=== PATIENT | female | born 1965 | race African-American/Black ===

== ENCOUNTER 2018-03-15 12:06 | Inpatient (IN) | payer MEDICARE, MEDICAID ==
[~2018-03-15] VITALS: Ht 177.8 cm; Wt 73.9 kg
[2018-03-15 12:15] VITALS: BP 104/112
[2018-03-15] MEDS: cefTRIAXone 2 GM in NS 110 ML IV SCH (12:49)
[2018-03-15 12:54] VITALS: BP 163/104
[2018-03-15 13:09] LABS: HEMOGLOBIN 13.3 G/DL (12.0-16.0); MEAN CORPUSCULAR VOLUME 94 FL (80-99); PLATELET COUNT 285 K/UL (150-450); RED BLOOD COUNT 4.33 M/UL (4.20-5.40); RED CELL DISTRIBUTION WIDTH 11.8 % (11.6-14.8)
[2018-03-15 13:12] LABS: WHITE BLOOD COUNT 23.8 K/UL (4.8-10.8)
[2018-03-15 13:20] LABS: ANION GAP 9 mmol/L (5-15); BLOOD UREA NITROGEN 28 mg/dL (7-18); CALCIUM 10.6 MG/DL (8.5-10.1); CARBON DIOXIDE 32 MMOL/L (21-32); CHLORIDE 104 MMOL/L (98-107); CREATININE 0.2 MG/DL (0.55-1.30); POTASSIUM 3.4 MMOL/L (3.5-5.1); SODIUM 145 MMOL/L (136-145)
[2018-03-15 13:49] LABS: ALANINE AMINOTRANSFERASE 49 U/L (12-78); ALBUMIN 4.2 G/DL (3.4-5.0); ALBUMIN/GLOBULIN RATIO 0.8 (1.0-2.7); ALKALINE PHOSPHATASE 100 U/L (46-116); ASPARTATE AMINO TRANSFERASE 39 U/L (15-37); BILIRUBIN,TOTAL 0.3 MG/DL (0.2-1.0); CREATINE KINASE 175 U/L (26-308)
[2018-03-15 13:59] VITALS: BP 154/93
[2018-03-15] MEDS ORDERED: GLUCERNA1500 ML PO (14:06)
[2018-03-15] MEDS ORDERED: TRAMADOL HCL50 MG ORAL (14:06)
[2018-03-15] MEDS ORDERED: IRON256 MG GT (14:06)
[2018-03-15] MEDS ORDERED: ACETAMINOPHEN325 M1 ORAL (14:06)
[2018-03-15] MEDS ORDERED: CRANBERRY400 MG GT (14:06)
[2018-03-15] MEDS ORDERED: VITAMIN C500 M1 GT (14:06)
[2018-03-15] MEDS ORDERED: MULTIVITAMINS1 EAC8 GT (14:06)
[2018-03-15 14:16] LABS: BILIRUBIN, URINE NEGATIVE (NEGATIVE); COLOR,URINE YELLOW; GLUCOSE, URINE (UA) NEGATIVE (NEGATIVE); KETONES,URINE NEGATIVE (NEGATIVE); LEUKOCYTE ESTERASE ,URINE NEGATIVE (NEGATIVE); NITRITE,URINE NEGATIVE (NEGATIVE); PH,URINE 6 (4.5-8.0); PROTEIN,URINE 3+ (NEGATIVE); UROBILINOGEN,URINE NORMAL MG/DL (0.0-1.0)
--- NOTE | 2018-03-15 14:16 | Diagnostic Imaging Report ---
Indication: Shortness of breath Technique: One view of the chest Comparison: none Findings: There is marked elevation of the right hemidiaphragm. Suspect atelectasis of the right middle and lower lobes. Mediastinum is shifted to the right. Air-fluid level below the right hemidiaphragm probably represents fluid within colon. The lungs and pleural spaces are otherwise clear. Heart size is normal. There is a tracheostomy. There is a left chest pacemaker. This there is a gastrostomy Impression: Evidence of right lung volume loss; suspect right middle and lower lobe atelectasis Other findings as noted Findings discussed by phone with Dr. Bernal in the emergency room at the time of interpretation
[2018-03-15 14:23] LABS: APPEARANCE,URINE SLIGHTLY CLOUDY
--- NOTE | 2018-03-15 14:48 | Emergency Room Report ---
History of Present Illness General Chief Complaint: Dyspnea/Respdistress Source: Medical Record, EMS, Caregiver Present Illness HPI This patient is brought in by EMS from a longterm facility. This patient has a history of advanced ALS. She recently developed a third degree heart block and had 2 episodes of cardiac arrest that required CPR and defibrillation. The patient underwent permanent pacemaker placement at [facility]. The patient is ventilator dependent secondary to respiratory failure. She presents from the longterm facility for concerns of episodes of desaturation. Per report, the patient's O2 saturation was dropping intermittently to 70. There was also concerns from the caregiver that the longterm facility was not giving the patient her medications because the orders are not signed by the primary physician of the facility. There are no other complaints. Allergies: Coded Allergies: MORPHINE (Verified Allergy, Unknown, 03/15/18) Patient History Past Medical History: other - ALS w/ Resp failure. Vent dependent. Past Surgical History: other - Trach Social History: Denies: smoking, alcohol use, drug use Last Menstrual Period: NA Reviewed Nursing Documentation: PMH: Agreed; PSxH: Agreed Nursing Documentation-PMH Past Medical History: No History, Except For Hx Cardiac Problems: Yes - Third degree heart block. ALS. Hx Hypertension: Yes Hx Pacemaker: Yes Hx COPD: Yes - Vent dependent. Pneumonia. Review of Systems All Other Systems: negative except mentioned in HPI Physical Exam Vital Signs Date Time Temp Pulse Resp B/P (MAP) Pulse Ox O2 Delivery O2 Flow Rate FiO2 03/15/18 11:59 110 20 190/112 100 Mechanical Ventilator 03/15/18 12:15 100 03/15/18 12:15 98.2 98.2 Sp02 EP Interpretation: reviewed, normal General Appearance: no apparent distress, alert, GCS 15, non-toxic Head: normocephalic, atraumatic Eyes: bilateral eye normal inspection, bilateral eye PERRL ENT: hearing grossly normal, normal pharynx, no angioedema, normal voice Neck: full range of motion, supple/symm/no masses Respiratory: chest non-tender, lungs clear, normal breath sounds, no respiratory distress, no retraction, no accessory muscle use Cardiovascular #1: regular rate, rhythm, no edema Gastrointestinal: normal bowel sounds, non tender, soft, non-distended, no guarding, no rebound Rectal: deferred Musculoskeletal: back normal, gait/station normal, normal range of motion, non- tender, calf tenderness Neurologic: alert, responsive, other - At baseline. Can communicate with a visual machine. Psychiatric: mood/affect normal Skin: warm/dry, well hydrated, other - See RN skin exam Medical Decision Making Diagnostic Impression: Primary Impression: Sepsis Additional Impression: Leukocytosis ER Course This patient did not appear to have any issues with hypoxemia on arrival to our facility. The patient was 100% on her ventilator and without any evidence of distress. However, she was noted to have an elevated white blood cell count over 23,000. Chest x-ray did not show any evidence of pneumonia but did have a significant amount of atelectasis on the right side. I'm unsure of the etiology of the patient's leukocytosis. She was given broad-spectrum antibiotics and admitted for further evaluation and treatment. Laboratory Tests Test 03/15/18 12:00 03/15/18 12:05 03/15/18 13:33 Urine Color Yellow Urine Appearance Slightly cloudy Urine pH 6 (4.5-8.0) Urine Specific [place] 1.015 (1.005-1.035) Urine Protein 3+ (NEGATIVE) H Urine Glucose (UA) Negative (NEGATIVE) Urine Ketones Negative (NEGATIVE) Urine Occult Blood 1+ (NEGATIVE) H Urine Nitrite Negative (NEGATIVE) Urine Bilirubin Negative (NEGATIVE) Urine Urobilinogen Normal MG/DL (0.0-1.0) Urine Leukocyte Esterase Negative (NEGATIVE) Urine RBC 2-4 /HPF (0 - 2) H Urine WBC 0-2 /HPF (0 - 2) Urine Squamous Epithelial Cells Occasional /LPF Urine Bacteria Few /HPF (NONE) Urine Hyaline Casts 0-2 /LPF (NONE) H White Blood Count 23.8 K/UL (4.8-10.8) *H Red Blood Count 4.33 M/UL (4.20-5.40) Hemoglobin 13.3 G/DL (12.0-16.0) Hematocrit 41.0 % (37.0-47.0) Mean Corpuscular Volume 94 FL (80-99) Mean Corpuscular Hemoglobin 30.7 PG (27.0-31.0) Mean Corpuscular Hemoglobin Concent 32.4 G/DL (32.0-36.0) Red Cell Distribution Width 11.8 % (11.6-14.8) Platelet Count 285 K/UL (150-450) Mean Platelet Volume 11.4 FL (6.5-10.1) H Neutrophils (%) (Auto) % (45.0-75.0) Lymphocytes (%) (Auto) % (20.0-45.0) Monocytes (%) (Auto) % (1.0-10.0) Eosinophils (%) (Auto) % (0.0-3.0) Basophils (%) (Auto) % (0.0-2.0) Differential Total Cells Counted 100 Neutrophils % (Manual) 79 % (45-75) H Lymphocytes % (Manual) 14 % (20-45) L Monocytes % (Manual) 5 % (1-10) Eosinophils % (Manual) 0 % (0-3) Basophils % (Manual) 0 % (0-2) Band Neutrophils 2 % (0-8) Platelet Estimate Adequate Platelet Morphology Normal Hypochromasia 1+ Sodium Level 145 MMOL/L (136-145) Potassium Level 3.4 MMOL/L (3.5-5.1) L Chloride Level 104 MMOL/L (98-107) Carbon Dioxide Level 32 MMOL/L (21-32) Anion Gap 9 mmol/L (5-15) Blood Urea Nitrogen 28 mg/dL (7-18) H Creatinine 0.2 MG/DL (0.55-1.30) L Estimate Glomerular Filtration Rate > 60 mL/min (>60) Glucose Level 190 MG/DL (74-106) H Lactic Acid Level 0.70 mmol/L (0.4-2.0) Calcium Level 10.6 MG/DL (8.5-10.1) H Total Bilirubin 0.3 MG/DL (0.2-1.0) Aspartate Amino Transferase (AST) 39 U/L (15-37) H Alanine Aminotransferase (ALT) 49 U/L (12-78) Alkaline Phosphatase 100 U/L (46-116) Total Creatine Kinase 175 U/L (26-308) Creatine Kinase MB 2.0 NG/ML (0.0-3.6) Creatine Kinase MB Relative Index 1.1 Troponin I 0.000 ng/mL (0.000-0.056) Total Protein 9.3 G/DL (6.4-8.2) H Albumin 4.2 G/DL (3.4-5.0) Globulin 5.1 g/dL Albumin/Globulin Ratio 0.8 (1.0-2.7) L Arterial Blood pH 7.390 (7.350-7.450) Arterial Blood Partial Pressure CO2 46.6 mmHg (35.0-45.0) H Arterial Blood Partial Pressure O2 495.7 mmHg (75.0-100.0) H Arterial Blood HCO3 28.0 mmol/L (22.0-26.0) H Arterial Blood Oxygen Saturation 99.6 % (92.0-98.0) H Arterial Blood Base Excess 2.5 Lopez Test Positive EKG Diagnostic Results Rate: normal Rhythm: NSR ST Segments: no acute changes Rhythm Strip Diag. Results EP Interpretation: yes Rate: 80's Rhythm: NSR, no PVC's, no ectopy Chest X-Ray Diagnostic Results Chest X-Ray Diagnostic Results : Chest X-Ray Ordered: Yes # of Views/Limited/Complete: 1 View Indication: Other EP Interpretation: No Interpretation: other - R. sided atelectasis Impression: Other - See above Last Vital Signs Date Time Temp Pulse Resp B/P (MAP) Pulse Ox O2 Delivery O2 Flow Rate FiO2 03/15/18 13:59 90 14 154/93 94 Mechanical Ventilator 100 03/15/18 12:15 98.2 98.2 Disposition: ADMITTED INPATIENT Condition: Serious Referrals: VAUGHN ALEJANDRO (PCP) Lauren Conklin DO Mar 15, 2018 14:48
[2018-03-15] MEDS ORDERED: Vancomycin 1 GM in NS 275 ML IVPB ONE (15:15)
[2018-03-15 15:38] VITALS: BP 102/70
[2018-03-15 16:30] VITALS: BP 121/75
[2018-03-15] MEDS ORDERED: Miralax 17gm pkt ORAL PRN (17:45)
[2018-03-15] MEDS ORDERED: Albuterol/Ipratropium 3ml neb HHN PRN (17:45)
[2018-03-15] MEDS: LORazepam Inj 2mg/ml 1ml IV PRN (19:03)
[2018-03-15] MEDS: Ipratropium 0.02% Inh Soln 2.5ml UD HHN SCH (19:35)
[2018-03-15 20:00] VITALS: BP 144/80
[2018-03-15] MEDS: Heparin 5000 units/ml inj SUBQ SCH (20:40)
[2018-03-16] VITALS: BP 118/68
[2018-03-16] MEDS: cefTRIAXone 2 GM in NS 110 ML IV SCH (01:43)
[2018-03-16 04:00] VITALS: BP 123/65
[2018-03-16] MEDS: LORazepam Inj 2mg/ml 1ml IV PRN (04:46)
[2018-03-16 05:17] LABS: HEMATOCRIT 35.4 % (37.0-47.0); HEMOGLOBIN 12.2 G/DL (12.0-16.0); MEAN CORPUSCULAR VOLUME 93 FL (80-99); PLATELET COUNT 223 K/UL (150-450); RED BLOOD COUNT 3.79 M/UL (4.20-5.40); RED CELL DISTRIBUTION WIDTH 11.8 % (11.6-14.8)
[2018-03-16 05:23] LABS: ALBUMIN 3.4 G/DL (3.4-5.0); ANION GAP 10 mmol/L (5-15); BLOOD UREA NITROGEN 24 mg/dL (7-18); CALCIUM 9.6 MG/DL (8.5-10.1); CARBON DIOXIDE 30 MMOL/L (21-32); CHLORIDE 107 MMOL/L (98-107); CREATININE 0.2 MG/DL (0.55-1.30); PHOSPHORUS 3.9 MG/DL (2.5-4.9); POTASSIUM 2.8 MMOL/L (3.5-5.1); SODIUM 146 MMOL/L (136-145)
[2018-03-16 05:32] LABS: WHITE BLOOD COUNT 28.7 K/UL (4.8-10.8)
[2018-03-16] MEDS: Ipratropium 0.02% Inh Soln 2.5ml UD HHN SCH ×3 (06:57→19:01)
--- NOTE | 2018-03-16 07:59 | History and Physical ---
History of Present Illness General Date patient seen: Mar 16, 2018 Reason for Hospitalization: Dyspnea/Respdistress Present Illness HPI 52 year old female with a history of advanced ALS, Chronic Vent/trach/ PEG brought in by EMS from a nursing home facility with episodes of desaturation. Per report, the patient's O2 saturation was dropping intermittently to 70. Initial evaluation in ER showed high WBC and possible sepsis. She is admitted to [facility] for further evaluation. She recently developed a third degree heart block and had 2 episodes of cardiac arrest that required CPR and defibrillation. The patient underwent permanent pacemaker placement. Allergies: Coded Allergies: MORPHINE (Verified Allergy, Unknown, 03/15/18) Medication History Scheduled Ascorbic Acid* (Vitamin C*), 500 MG GT DAILY, (Reported) Multivitamin With Minerals (Multivitamins With Minerals*), 1 TAB GT DAILY, ( Reported) Scheduled PRN Acetaminophen* (Acetaminophen 325MG Tablet*), 325 MG ORAL Q4H PRN for For Pain, (Reported) Tramadol Hcl* (Ultram*), 50 MG ORAL Q6H PRN for For Pain, (Reported) Miscellaneous Medications Cranberry (Cranberry), 425 MG GT, (Reported) Ferrous Gluconate (Iron), 330 MG GT, (Reported) Nut.tx.gluc.intoler,Lac-Fr,Soy (Glucerna 1.2 Alo), 1,500 ML PO, (Reported) Patient History Healthcare decision maker PRISCILLA ZEPEDA Resuscitation status Full Code Advanced Directive on File No Past Medical/Surgical History Past Medical/Surgical History: (1) ALS (amyotrophic lateral sclerosis) (2) Chronic respiratory failure (3) Feeding by G-tube (4) Pacemaker Review of Systems All Other Systems: negative except mentioned in HPI Physical Exam General Appearance: WD/WN Lines, tubes and drains: peripheral HEENT: normocephalic, atraumatic Neck: non-tender, normal alignment Respiratory/Chest: chest wall non-tender, lungs clear Breasts: no masses Cardiovascular/Chest: normal peripheral pulses, normal rate Abdomen: normal bowel sounds, non tender Genitourinary/Rectal: normal genital exam, normal rectal exam Extremities: normal range of motion, non-tender Skin Exam: normal pigmentation 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 II-XII grossly normal Last 24 Hour Vital Signs Date Time Temp Pulse Resp B/P (MAP) Pulse Ox O2 Delivery O2 Flow Rate FiO2 8/4/18 07:05 50 03/16/18 07:05 96 12 98 Mechanical Ventilator 50.0 50 03/16/18 06:59 94 12 50 03/16/18 06:57 94 12 96 Mechanical Ventilator 50.0 50 03/16/18 04:35 98 12 50 03/16/18 04:00 117 03/16/18 04:00 98.1 99 20 123/65 (84) 98 98.1 03/16/18 04:00 Mechanical Ventilator 03/16/18 04:00 50 03/16/18 03:02 94 13 50 03/16/18 01:28 91 12 50 03/16/18 00:00 50 03/16/18 00:00 Mechanical Ventilator 03/16/18 00:00 98.2 113 20 118/68 (85) 98 98.2 03/16/18 00:00 98 03/15/18 23:08 89 12 50 03/15/18 21:21 91 12 50 03/15/18 20:00 50 03/15/18 20:00 Mechanical Ventilator 03/15/18 20:00 96 03/15/18 20:00 97.2 100 18 144/80 (101) 100 97.2 03/15/18 19:38 98 12 99 Mechanical Ventilator 50.0 50 03/15/18 19:30 50 03/15/18 19:30 94 12 100 Mechanical Ventilator 50.0 50 03/15/18 19:17 96 12 50 03/15/18 17:04 94 12 50 03/15/18 16:30 97.6 78 18 121/75 (90) 99 97.6 03/15/18 16:30 90 03/15/18 16:30 100 03/15/18 16:30 100 03/15/18 16:30 Mechanical Ventilator 03/15/18 16:30 Mechanical Ventilator 03/15/18 15:50 98.2 82 11 102/70 100 Mechanical Ventilator 50 98.2 03/15/18 15:38 98.2 82 11 102/70 100 Mechanical Ventilator 50 98.2 03/15/18 14:32 92 12 50 03/15/18 13:59 90 14 154/93 94 Mechanical Ventilator 100 03/15/18 13:42 50 03/15/18 13:34 100 8/3/18 12:54 98 12 163/104 99 Mechanical Ventilator 100 03/15/18 12:47 108 12 100 03/15/18 12:15 98.2 100 12 104/112 97 Mechanical Ventilator 100 98.2 03/15/18 12:15 110 20 Mechanical Ventilator 100 03/15/18 11:59 110 20 190/112 100 Mechanical Ventilator Intake and Output 03/15/18 03/16/18 19:00 07:00 Intake Total 2690 ml 670 ml Output Total 700 ml Balance 2690 ml -30 ml Intake Oral 0 ml Free Water 100 ml 50 ml IV Total 2500 ml 110 ml Tube Feeding 90 ml 510 ml Output Urine Total 700 ml # Bowel Movements 6 Laboratory Tests Test 03/15/18 12:00 03/15/18 12:05 03/15/18 13:33 03/16/18 04:23 Urine Color Yellow Urine Appearance Slightly cloudy Urine pH 6 (4.5-8.0) Urine Specific [place] 1.015 (1.005-1.035) Urine Protein 3+ (NEGATIVE) H Urine Glucose (UA) Negative (NEGATIVE) Urine Ketones Negative (NEGATIVE) Urine Occult Blood 1+ (NEGATIVE) H Urine Nitrite Negative (NEGATIVE) Urine Bilirubin Negative (NEGATIVE) Urine Urobilinogen Normal MG/DL (0.0-1.0) Urine Leukocyte Esterase Negative (NEGATIVE) Urine RBC 2-4 /HPF (0 - 2) H Urine WBC 0-2 /HPF (0 - 2) Urine Squamous Epithelial Cells Occasional /LPF Urine Bacteria Few /HPF (NONE) Urine Hyaline Casts 0-2 /LPF (NONE) H White Blood Count 23.8 K/UL (4.8-10.8) *H 28.7 K/UL (4.8-10.8) *H Red Blood Count 4.33 M/UL (4.20-5.40) 3.79 M/UL (4.20-5.40) L Hemoglobin 13.3 G/DL (12.0-16.0) 12.2 G/DL (12.0-16.0) Hematocrit 41.0 % (37.0-47.0) 35.4 % (37.0-47.0) L Mean Corpuscular Volume 94 FL (80-99) 93 FL (80-99) Mean Corpuscular Hemoglobin 30.7 PG (27.0-31.0) 32.2 PG (27.0-31.0) H Mean Corpuscular Hemoglobin Concent 32.4 G/DL (32.0-36.0) 34.5 G/DL (32.0-36.0) Red Cell Distribution Width 11.8 % (11.6-14.8) 11.8 % (11.6-14.8) Platelet Count 285 K/UL (150-450) 223 K/UL (150-450) Mean Platelet Volume 11.4 FL (6.5-10.1) H 11.0 FL (6.5-10.1) H Neutrophils (%) (Auto) % (45.0-75.0) % (45.0-75.0) Lymphocytes (%) (Auto) % (20.0-45.0) % (20.0-45.0) Monocytes (%) (Auto) % (1.0-10.0) % (1.0-10.0) Eosinophils (%) (Auto) % (0.0-3.0) % (0.0-3.0) Basophils (%) (Auto) % (0.0-2.0) % (0.0-2.0) Differential Total Cells Counted 100 Neutrophils % (Manual) 79 % (45-75) H Lymphocytes % (Manual) 14 % (20-45) L Monocytes % (Manual) 5 % (1-10) Eosinophils % (Manual) 0 % (0-3) Basophils % (Manual) 0 % (0-2) Band Neutrophils 2 % (0-8) Platelet Estimate Adequate Platelet Morphology Normal Hypochromasia 1+ Sodium Level 145 MMOL/L (136-145) 146 MMOL/L (136-145) H Potassium Level 3.4 MMOL/L (3.5-5.1) L 2.8 MMOL/L (3.5-5.1) L Chloride Level 104 MMOL/L (98-107) 107 MMOL/L (98-107) Carbon Dioxide Level 32 MMOL/L (21-32) 30 MMOL/L (21-32) Anion Gap 9 mmol/L (5-15) 10 mmol/L (5-15) Blood Urea Nitrogen 28 mg/dL (7-18) H 24 mg/dL (7-18) H Creatinine 0.2 MG/DL (0.55-1.30) L 0.2 MG/DL (0.55-1.30) L Estimat Glomerular Filtration Rate > 60 mL/min (>60) > 60 mL/min (>60) Glucose Level 190 MG/DL (74-106) H 127 MG/DL (74-106) H Lactic Acid Level 0.70 mmol/L (0.4-2.0) Calcium Level 10.6 MG/DL (8.5-10.1) H 9.6 MG/DL (8.5-10.1) Total Bilirubin 0.3 MG/DL (0.2-1.0) Aspartate Amino Transf (AST/SGOT) 39 U/L (15-37) H Alanine Aminotransferase (ALT/SGPT) 49 U/L (12-78) Alkaline Phosphatase 100 U/L (46-116) Total Creatine Kinase 175 U/L (26-308) Creatine Kinase MB 2.0 NG/ML (0.0-3.6) Creatine Kinase MB Relative Index 1.1 Troponin I 0.000 ng/mL (0.000-0.056) Total Protein 9.3 G/DL (6.4-8.2) H Albumin 4.2 G/DL (3.4-5.0) 3.4 G/DL (3.4-5.0) Globulin 5.1 g/dL Albumin/Globulin Ratio 0.8 (1.0-2.7) L Arterial Blood pH 7.390 (7.350-7.450) Arterial Blood Partial Pressure CO2 46.6 mmHg (35.0-45.0) H Arterial Blood Partial Pressure O2 495.7 mmHg (75.0-100.0) H Arterial Blood HCO3 28.0 mmol/L (22.0-26.0) H Arterial Blood Oxygen Saturation 99.6 % (92.0-98.0) H Arterial Blood Base Excess 2.5 Lopez Test Positive Phosphorus Level 3.9 MG/DL (2.5-4.9) Height (Feet): 5 Height (Inches): 10.00 Weight (Pounds): 180 Medications Current Medications Medications (Trade) Dose Ordered Sig/Madisyn Route PRN Reason Start Time Stop Time Status Last Admin Dose Admin Acetaminophen (Tylenol) 650 mg Q4H PRN ORAL FEVER 03/15/18 17:45 04/14/18 17:44 Albuterol/ Ipratropium (Albuterol/ Ipratropium) 3 ml EVERY 4 HOURS PRN HHN Shortness of Breath 03/15/18 17:45 03/20/18 17:44 Ceftriaxone Sodium 2 gm/ Sodium Chloride 110 ml @ 220 mls/hr Q12H IV 03/15/18 12:45 03/16/18 12:44 03/16/18 01:43 Dextrose (Dextrose 50%) 25 ml STAT PRN IV Hypoglycemia 03/15/18 17:45 04/14/18 17:44 Dextrose (Dextrose 50%) 50 ml STAT PRN IV Hypoglycemia 03/15/18 18:00 04/14/18 17:59 Heparin Sodium (Porcine) (Heparin 5000 units/ml) 5,000 units EVERY 12 HOURS SUBQ 03/15/18 21:00 04/14/18 20:59 Ipratropium [place] (Atrovent) 500 mcg TIDRT HHN 03/15/18 19:00 03/20/18 18:59 03/16/18 06:57 Lorazepam (Ativan 2mg/ml 1ml) 2 mg EVERY 2 HOURS PRN IV For Anxiety 03/15/18 17:45 03/22/18 17:44 03/16/18 04:46 Ondansetron HCl (Zofran) 4 mg Q6H PRN IVP Nausea & Vomiting 03/15/18 17:45 04/14/18 17:44 Pantoprazole (Protonix) 40 mg DAILY IV 03/16/18 09:00 04/15/18 08:59 Polyethylene Glycol (Miralax) 17 gm DAILYPRN PRN ORAL Constipation 03/15/18 17:45 04/14/18 17:44 Vancomycin HCl 1 gm/Dextrose 275 ml @ 183.3 mls/ hr Q12H IVPB 03/16/18 22:00 03/21/18 21:59 Assessment/Plan Problem List: (1) Acute on chronic respiratory failure ICD Codes: J96.20 - Acute and chronic respiratory failure, unspecified whether with hypoxia or hypercapnia SNOMED: 38600743 (2) Sepsis ICD Codes: A41.9 - Sepsis, unspecified organism SNOMED: 81091180, 811849191 (3) Pacemaker ICD Codes: Z95.0 - Presence of cardiac pacemaker SNOMED: 053648124 (4) ALS (amyotrophic lateral sclerosis) ICD Codes: G12.21 - Amyotrophic lateral sclerosis SNOMED: 81996503 (5) Feeding by G-tube ICD Codes: Z93.1 - Gastrostomy status SNOMED: 418477860, 681612337 Respiratory: monitor respiratory rate, adjust FIO2 Cardiac: continue to monitor HR/BP Renal: F/U I&O, keep IV fluid Infectious Disease: check cultures Gastrointestinal: continue feedings/current rate Endocrine: monitor blood sugar Hematologic: monitor H/H, transfuse if hgb<8.5 Neurologic: PRN Ativan, PRN Morphine, keep patient comfortable Discussed with: nurses, case folder Anastasiia Hines MD Mar 16, 2018 07:59
[2018-03-16 08:00] VITALS: BP 90/53
[2018-03-16] MEDS: Heparin 5000 units/ml inj SUBQ SCH ×2 (09:00→21:56)
[2018-03-16] MEDS: Pantoprazole Inj IV SCH (09:24)
[2018-03-16] MEDS ORDERED: Potassium Chloride 40 MEQ in Sodium Chloride 500ML 550 ML IVPB ONE (10:00)
[2018-03-16] MEDS: Potassium Chloride 10 MEQ in D5W 1000ml 1,000 ML IV SCH (10:11)
[2018-03-16 12:00] VITALS: BP 94/48
--- NOTE | 2018-03-16 14:12 | Diagnostic Imaging Report ---
APPROVED REPORT CPT Code: 16117 Present Symptoms Comments: BILATERAL LEGS PAIN. BILATERAL: Imaging reveals a patent deep venous system bilaterally. There is no evidence of thrombus within the femoral, popliteal or tibial segments. The greater saphenous veins are also within normal limits. Doppler indicates normal spontaneous flow within these segments.
--- NOTE | 2018-03-16 15:31 | Consultation ---
Consult Note Consult Note [id number] will get CT of A/P if wbc does not improve Casey Hearn MD Mar 16, 2018 15:31
[2018-03-16] MEDS ORDERED: Tubing IV Secondary IV ONE (15:57)
[2018-03-16 16:00] VITALS: BP 89/50
[2018-03-16] MEDS: cefTRIAXone 1 GM in D5W 110 ML IVPB SCH (16:58)
[2018-03-16 20:00] VITALS: BP 92/48
--- NOTE | 2018-03-16 20:59 | Diagnostic Imaging Report ---
EXAM: XR Chest, 1 View CLINICAL HISTORY: ABSCESS TECHNIQUE: Frontal view of the chest. COMPARISON: No relevant prior studies available. FINDINGS: Lungs: Unremarkable. No consolidation. Pleural space: Right pleural effusion. No pneumothorax. Heart: Unremarkable. No cardiomegaly. Mediastinum: Unremarkable. Bones/joints: Unremarkable. Tubes, lines and devices: Tracheostomy tube in place. IMPRESSION: Right pleural effusion.
--- NOTE | 2018-03-16 21:45 | Consultation ---
DATE OF CONSULTATION: 03/16/2018 INFECTIOUS DISEASE CONSULTATION CONSULTING PHYSICIAN: Casey Hearn M.D. REFERRING PHYSICIAN: Anastasiia Hines M.D. REASON FOR CONSULTATION: Evaluation of the patient for sepsis. HISTORY OF PRESENT ILLNESS: The patient is a 52-year-old female with multiple medical problems, who was [facility] center for hypoxemia and respiratory distress. The patient was found to have leukocytosis and was admitted to telemetry unit and the patient was started on IV antibiotics for possible sepsis. Infectious Disease consultation has been requested for further evaluation of the patient. PAST MEDICAL HISTORY: Significant for: 1. ALS. 2. History of cardiac arrest in the past. 3. Status post permanent pacemaker. 4. History of vent-dependent respiratory failure. 5. Status post trach. ALLERGIES: Morphine. FAMILY HISTORY: Unavailable. SOCIAL HISTORY: The patient lives in a [facility]. MEDICATIONS: The patient received one dose of vancomycin and Rocephin in the emergency room. REVIEW OF SYSTEMS: Unavailable to obtain. PHYSICAL EXAMINATION: VITAL SIGNS: Temperature 97, pulse 86, respiratory rate 18, and blood pressure 94/48. HEENT: No pale conjunctivae. No icterus. NECK: No lymphadenopathy. CHEST: Clear. HEART: S1, S2. ABDOMEN: Soft. PEG tube in place. EXTREMITIES: No cyanosis at this time. NEUROLOGIC: The patient opens eyes. SKIN: No rash. LABORATORY AND DIAGNOSTIC DATA: White blood cells 28, hemoglobin 12, platelet 223,000. UA unremarkable. BUN 24, creatinine 0.2. ALT, AST, alkaline phosphatase unremarkable. Venous duplex, no evidence of DVT. Chest x-ray, right middle and right lower lobe atelectasis. ASSESSMENT: 1. The patient is a 52-year-old female, who was admitted to this medical center with: 2. Respiratory distress, ? pneumonia (the patient does not have much respiratory secretions, chest x-ray is unremarkable), however, needs to rule out probable underlying healthcare-associated pneumonia. 3. Rule out bacteremia. 4. Rule out UTI ( unremarkable UA). 5. Leukocytosis. 6. Afebrile. 7. No diarrhea to rule out C. difficile. PLAN: 1. We will continue the patient on IV vancomycin and Rocephin for now. 2. CBC. 3. BMP. 4. Monitor cultures (blood, urine, sputum). 5. Monitor chest x-ray for possible development of infiltrate. 6. We will send stool for C. difficile if the patient has diarrhea. 7. Based on the patient's clinical course and laboratories, we will do further recommendations. Thank you, Dr. Hines, for allowing me to participate in the care of this patient. I will follow the patient with you during this hospitalization. Casey Hearn M.D. DR: Maritza JOB#: [id number] CC:
[2018-03-16] MEDS ORDERED: Vancomycin 1 GM in D5W 275 ML IVPB SCH (22:00)
[2018-03-16] MEDS: Vancomycin 1500mg IVPB SCH (23:55)
[2018-03-17] VITALS (7 sets, daily range): BP systolic 90–121; BP diastolic 50–74
[2018-03-17 05:47] LABS: BASOPHILS % (AUTO) 0.5 % (0.0-2.0); EOSINOPHILS % (AUTO) 0.8 % (0.0-3.0); HEMATOCRIT 33.3 % (37.0-47.0); HEMOGLOBIN 10.7 G/DL (12.0-16.0); MEAN CORPUSCULAR VOLUME 93 FL (80-99); MONOCYTES % (AUTO) 4.6 % (1.0-10.0); NEUTROPHILS % (AUTO) 79.2 % (45.0-75.0); PLATELET COUNT 190 K/UL (150-450); RED BLOOD COUNT 3.57 M/UL (4.20-5.40); RED CELL DISTRIBUTION WIDTH 11.7 % (11.6-14.8); WHITE BLOOD COUNT 16.7 K/UL (4.8-10.8)
[2018-03-17 05:58] LABS: ALANINE AMINOTRANSFERASE 40 U/L (12-78); ALBUMIN/GLOBULIN RATIO 0.7 (1.0-2.7); ALKALINE PHOSPHATASE 73 U/L (46-116); ANION GAP 8 mmol/L (5-15); ASPARTATE AMINO TRANSFERASE 31 U/L (15-37); BILIRUBIN,TOTAL 0.5 MG/DL (0.2-1.0); BLOOD UREA NITROGEN 22 mg/dL (7-18); CALCIUM 9.2 MG/DL (8.5-10.1); CARBON DIOXIDE 29 MMOL/L (21-32); CHLORIDE 106 MMOL/L (98-107); CREATININE 0.3 MG/DL (0.55-1.30); POTASSIUM 3.7 MMOL/L (3.5-5.1); SODIUM 143 MMOL/L (136-145)
[2018-03-17] MEDS: Potassium Chloride 10 MEQ in D5W 1000ml 1,000 ML IV SCH (05:59)
[2018-03-17] MEDS: Ipratropium 0.02% Inh Soln 2.5ml UD HHN SCH ×3 (07:48→20:25)
[2018-03-17] MEDS: Vancomycin 1500mg IVPB SCH ×3 (07:50→23:59)
[2018-03-17] MEDS: Pantoprazole Inj IV SCH (09:38)
[2018-03-17] MEDS: cefTRIAXone 1 GM in D5W 110 ML IVPB SCH (09:38)
[2018-03-17] MEDS: Heparin 5000 units/ml inj SUBQ SCH ×2 (09:39→21:00)
[2018-03-17] MEDS ORDERED: Tubing IV Secondary IV ONE (09:59)
[2018-03-17] MEDS ORDERED: NS Irrig 1000ml ONE (09:59)
--- NOTE | 2018-03-17 13:46 | Pulmonolgy Critical Care Note ---
Critical Care - Asmt/Plan Problems: (1) Acute on chronic respiratory failure (2) Right lower lobe pulmonary infiltrate (3) Sepsis (4) ALS (amyotrophic lateral sclerosis) (5) Pacemaker (6) Feeding by G-tube Respiratory: monitor respiratory rate, adjust FIO2, CXR Cardiac: continue to monitor HR/BP Renal: F/U I&O Infectious Disease: check cultures Gastrointestinal: continue feedings/current rate Endocrine: monitor blood sugar, check TSH Hematologic: monitor H/H, transfuse if hgb<8.5 Neurologic: PRN Morphine, keep patient comfortable Prophylaxis: Protonix Notes Reviewed: cardio Discussed with: nurses, consultants, test case developertruck rental manager - Objective Last 24 Hour Vital Signs Date Time Temp Pulse Resp B/P (MAP) Pulse Ox O2 Delivery O2 Flow Rate FiO2 03/17/18 13:36 Mechanical Ventilator 03/17/18 13:35 Mechanical Ventilator 03/17/18 13:29 99 12 50 03/17/18 12:00 50 03/17/18 12:00 98.1 102 12 121/64 (83) 100 98.1 03/17/18 12:00 Mechanical Ventilator 03/17/18 11:25 98 12 50 03/17/18 09:20 108 12 50 03/17/18 08:00 104 03/17/18 08:00 Mechanical Ventilator 03/17/18 08:00 50 03/17/18 08:00 97.8 105 17 121/72 (88) 100 97.8 03/17/18 07:58 92 12 100 Mechanical Ventilator 50 03/17/18 07:50 50 03/17/18 07:48 90 12 98 Mechanical Ventilator 50.0 50 03/17/18 07:45 90 12 50 03/17/18 06:00 99.4 94 12 94/52 (66) 100 99.4 03/17/18 05:27 98 12 50 03/17/18 04:00 Mechanical Ventilator 03/17/18 04:00 50 03/17/18 04:00 99.4 94 12 94/52 (66) 100 99.4 03/17/18 03:38 76 03/17/18 03:24 83 12 50 03/17/18 01:28 89 12 50 03/17/18 00:00 98.1 86 12 90/50 (63) 100 98.1 03/17/18 00:00 Mechanical Ventilator 03/16/18 23:36 90 03/16/18 22:58 92 12 50 03/16/18 21:18 99 12 50 03/16/18 20:00 98.7 92 12 92/48 (63) 100 98.7 03/16/18 20:00 50 03/16/18 20:00 Mechanical Ventilator 03/16/18 19:46 84 03/16/18 19:03 93 12 50 03/16/18 19:02 97 12 99 Mechanical Ventilator 50.0 50 03/16/18 18:55 95 12 99 Mechanical Ventilator 50.0 50 03/16/18 18:55 50 03/16/18 17:04 98 12 50 03/16/18 16:00 Mechanical Ventilator 03/16/18 16:00 88 03/16/18 16:00 50 03/16/18 16:00 98.8 89 14 89/50 (63) 98 98.8 03/16/18 15:02 100 12 50 Status: awake Condition: critical HEENT: atraumatic, normocephalic Lungs: clear Heart: HR/BP stable Abdomen: soft, feeding tube Extremities: no C/C/E, edema Micro: Microbiology Date/Time Source Procedure Growth Status 03/15/18 12:20 Blood Blood Culture - Preliminary NO GROWTH AFTER 24 HOURS Resulted 03/15/18 12:05 Blood Blood Culture - Preliminary NO GROWTH AFTER 24 HOURS Resulted 03/16/18 18:30 Sputum Gram Stain - Final Resulted 03/16/18 18:30 Sputum Sputum Culture Pending Resulted 03/15/18 12:00 Nasal Nares MRSA Culture - Final NO METHICILLIN RESISTANT STAPH AUREUS... Complete 03/15/18 12:00 Rectum VRE Culture - Final Enterococcus Faecium - Vre Complete Critical Care - Subjective ROS Limited/Unobtainable: Yes Condition: critical FI02: 50 Vent Support Breath Rate: 12 Vent Support Mode: AC Vent Tidal Volume: 450 Sputum Amount: Small PEEP: 5.0 PIP: 20 Tube Feeding Amount: 30 I&O: Intake and Output 03/16/18 03/17/18 19:00 07:00 Intake Total 1075.0 ml 1223.3 ml Output Total 150 ml 150 ml Balance 925.0 ml 1073.3 ml Free Water 200 ml 80 ml IV Total 545.0 ml 783.3 ml Tube Feeding 330 ml 360 ml Output Urine Total 150 ml 150 ml Labs: Laboratory Tests Test 03/16/18 21:20 03/17/18 04:45 Vancomycin Level Trough < 2.0 ug/mL (5.0-12.0) L White Blood Count 16.7 K/UL (4.8-10.8) H Red Blood Count 3.57 M/UL (4.20-5.40) L Hemoglobin 10.7 G/DL (12.0-16.0) L Hematocrit 33.3 % (37.0-47.0) L Mean Corpuscular Volume 93 FL (80-99) Mean Corpuscular Hemoglobin 30.0 PG (27.0-31.0) Mean Corpuscular Hemoglobin Concent 32.1 G/DL (32.0-36.0) Red Cell Distribution Width 11.7 % (11.6-14.8) Platelet Count 190 K/UL (150-450) Mean Platelet Volume 10.9 FL (6.5-10.1) H Neutrophils (%) (Auto) 79.2 % (45.0-75.0) H Lymphocytes (%) (Auto) 15.0 % (20.0-45.0) L Monocytes (%) (Auto) 4.6 % (1.0-10.0) Eosinophils (%) (Auto) 0.8 % (0.0-3.0) Basophils (%) (Auto) 0.5 % (0.0-2.0) Sodium Level 143 MMOL/L (136-145) Potassium Level 3.7 MMOL/L (3.5-5.1) Chloride Level 106 MMOL/L (98-107) Carbon Dioxide Level 29 MMOL/L (21-32) Anion Gap 8 mmol/L (5-15) Blood Urea Nitrogen 22 mg/dL (7-18) H Creatinine 0.3 MG/DL (0.55-1.30) L Estimat Glomerular Filtration Rate > 60 mL/min (>60) Glucose Level 123 MG/DL (74-106) H Calcium Level 9.2 MG/DL (8.5-10.1) Phosphorus Level 3.0 MG/DL (2.5-4.9) Magnesium Level 1.9 MG/DL (1.8-2.4) Total Bilirubin 0.5 MG/DL (0.2-1.0) Aspartate Amino Transf (AST/SGOT) 31 U/L (15-37) Alanine Aminotransferase (ALT/SGPT) 40 U/L (12-78) Alkaline Phosphatase 73 U/L (46-116) Total Protein 7.4 G/DL (6.4-8.2) Albumin 3.0 G/DL (3.4-5.0) L Globulin 4.4 g/dL Albumin/Globulin Ratio 0.7 (1.0-2.7) L Anastasiia Hines MD Mar 17, 2018 13:46
[2018-03-17] MEDS: LORazepam Inj 2mg/ml 1ml IV PRN ×2 (14:21→21:38)
--- NOTE | 2018-03-17 14:24 | Cardiology Report ---
APPROVED REPORT EKG Measurement Heart [id number] Normal sinus rhythm Prolonged QT Abnormal ECG poor qulity tracing consider repeating
[2018-03-18] VITALS: BP 118/78
[2018-03-18] MEDS: Potassium Chloride 10 MEQ in D5W 1000ml 1,000 ML IV SCH ×2 (01:58→21:44)
[2018-03-18 04:00] VITALS: BP 112/64
[2018-03-18] MEDS: Ipratropium 0.02% Inh Soln 2.5ml UD HHN SCH ×3 (07:15→19:34)
[2018-03-18 07:45] LABS: BASOPHILS % (AUTO) 1.1 % (0.0-2.0); EOSINOPHILS % (AUTO) 2.1 % (0.0-3.0); HEMATOCRIT 30.3 % (37.0-47.0); LYMPHOCYTES % (AUTO) 7.3 % (20.0-45.0); MEAN CORPUSCULAR VOLUME 92 FL (80-99); MONOCYTES % (AUTO) 5.2 % (1.0-10.0); NEUTROPHILS % (AUTO) 84.3 % (45.0-75.0); PLATELET COUNT 169 K/UL (150-450); RED BLOOD COUNT 3.29 M/UL (4.20-5.40); RED CELL DISTRIBUTION WIDTH 11.8 % (11.6-14.8); WHITE BLOOD COUNT 17.6 K/UL (4.8-10.8)
[2018-03-18 08:00] VITALS: BP 119/74
[2018-03-18 08:03] LABS: ALANINE AMINOTRANSFERASE 97 U/L (12-78); ALBUMIN 2.5 G/DL (3.4-5.0); ALBUMIN/GLOBULIN RATIO 0.6 (1.0-2.7); ALKALINE PHOSPHATASE 84 U/L (46-116); ANION GAP 6 mmol/L (5-15); ASPARTATE AMINO TRANSFERASE 80 U/L (15-37); BILIRUBIN,TOTAL 0.5 MG/DL (0.2-1.0); BLOOD UREA NITROGEN 34 mg/dL (7-18); CARBON DIOXIDE 27 MMOL/L (21-32); CHLORIDE 99 MMOL/L (98-107); CREATININE 0.8 MG/DL (0.55-1.30); POTASSIUM 4.6 MMOL/L (3.5-5.1); SODIUM 131 MMOL/L (136-145)
[2018-03-18] MEDS: Pantoprazole Inj IV SCH (08:53)
[2018-03-18] MEDS: cefTRIAXone 1 GM in D5W 110 ML IVPB SCH (08:53)
[2018-03-18] MEDS: Heparin 5000 units/ml inj SUBQ SCH ×2 (08:54→20:14)
--- NOTE | 2018-03-18 09:08 | Infectious Diseases Prog Note ---
Assessment/Plan Assessment/Plan ASSESSMENT: 1. The patient is a 52-year-old female, who was admitted to this medical center with: 2. Respiratory distress possible pneumonia Sputum growing GNRx2, (the patient does not have much respiratory secretions, chest x-ray is unremarkable), however, needs to rule out probable underlying healthcare-associated pneumonia. 3. Rule out bacteremia. - Blood Cx 03/16/18 NGTD 4. Rule out UTI - UCx 03/17/18 NGTD - unremarkable UA). 5. Leukocytosis. - Improving 6. Afebrile. 7. No diarrhea to rule out C. difficile. PLAN: 1. We will continue the patient on IV vancomycin #3 and Rocephin #3 for now. 2. CBC. 3. BMP. 4. Monitor cultures (blood, urine, sputum). 5. Monitor chest x-ray for possible development of infiltrate. 6. f/u C. dif Thank you, Dr. Hines, for allowing us to participate in the care of this patient. I will follow the patient with you during this hospitalization. Subjective Allergies: Coded Allergies: MORPHINE (Verified Allergy, Unknown, 03/15/18) Uncoded Allergies: Paper tape (Allergy, Unknown, 03/17/18) Pcg provide additional information Subjective Patient afebrile On Vent 30% O2 Thin secretions Unable to speak pediatric acute care unit nurse at bedside Objective Vital Signs Last 24 Hour Vital Signs Date Time Temp Pulse Resp B/P (MAP) Pulse Ox O2 Delivery O2 Flow Rate FiO2 03/18/18 08:00 98.2 91 14 119/74 (89) 100 98.2 03/18/18 07:25 89 12 100 Mechanical Ventilator 50 03/18/18 07:19 40 03/18/18 07:19 50 03/18/18 07:15 89 12 100 Mechanical Ventilator 50 03/18/18 07:15 89 12 50 03/18/18 05:09 87 12 50 03/18/18 04:00 50 03/18/18 04:00 Mechanical Ventilator 03/18/18 04:00 97.5 85 14 112/64 (80) 100 97.5 03/18/18 03:36 80 03/18/18 03:03 80 12 50 03/18/18 01:26 78 12 50 03/18/18 00:00 Mechanical Ventilator 03/18/18 00:00 97.7 83 16 118/78 (91) 100 97.7 03/17/18 23:45 76 03/17/18 23:00 89 12 50 03/17/18 21:48 84 12 50 03/17/18 20:36 50 03/17/18 20:36 87 12 100 Mechanical Ventilator 50 03/17/18 20:27 86 12 50 03/17/18 20:26 86 12 99 Mechanical Ventilator 50 03/17/18 20:00 Mechanical Ventilator 03/17/18 20:00 97.7 87 20 121/74 (90) 100 97.7 03/17/18 20:00 50 03/17/18 19:48 87 03/17/18 17:14 77 12 50 03/17/18 16:00 99 03/17/18 16:00 97.9 86 12 94/55 (68) 100 97.9 03/17/18 16:00 Mechanical Ventilator 03/17/18 16:00 50 03/17/18 15:23 95 12 50 03/17/18 15:20 98.1 03/17/18 14:21 98.1 03/17/18 13:36 Mechanical Ventilator 03/17/18 13:35 Mechanical Ventilator 03/17/18 13:29 99 12 50 03/17/18 12:00 50 03/17/18 12:00 98.1 102 12 121/64 (83) 100 98.1 03/17/18 12:00 99 03/17/18 12:00 Mechanical Ventilator 03/17/18 11:25 98 12 50 03/17/18 09:20 108 12 50 Height (Feet): 5 Height (Inches): 10.00 Weight (Pounds): 180 Objective HEENT: No pale conjunctivae. No icterus. Trached NECK: No JVD, No lymphadenopathy. CHEST: CTAB, No Wheezing, Pacemaker in place (no erythema or breakdown of overlying skin) HEART: RRR, S1, S2. ABDOMEN: Soft. PEG tube in place. ( no surrounding erythema) EXTREMITIES: No cyanosis at this time. NEUROLOGIC: The patient opens eyes to voice SKIN: No rash. Microbiology Date/Time Source Procedure Growth Status 03/15/18 12:20 Blood Blood Culture - Preliminary NO GROWTH AFTER 48 HOURS Resulted 03/15/18 12:05 Blood Blood Culture - Preliminary NO GROWTH AFTER 48 HOURS Resulted 03/16/18 18:30 Sputum Gram Stain - Final Resulted 03/16/18 18:30 Sputum Culture - Preliminary Gram Negative Bacillus 1 Gram Negative Bacillus 2 Resulted 03/15/18 12:00 Nasal Nares MRSA Culture - Final NO METHICILLIN RESISTANT STAPH AUREUS... Complete 03/17/18 00:00 Urine,Clean Catch Urine Culture - Preliminary Resulted 03/15/18 12:00 Rectum VRE Culture - Final Enterococcus Faecium - Vre Complete Laboratory Tests Test 03/18/18 07:30 03/18/18 08:30 White Blood Count 17.6 K/UL (4.8-10.8) H Red Blood Count 3.29 M/UL (4.20-5.40) L Hemoglobin 10.0 G/DL (12.0-16.0) L Hematocrit 30.3 % (37.0-47.0) L Mean Corpuscular Volume 92 FL (80-99) Mean Corpuscular Hemoglobin 30.3 PG (27.0-31.0) Mean Corpuscular Hemoglobin Concent 32.9 G/DL (32.0-36.0) Red Cell Distribution Width 11.8 % (11.6-14.8) Platelet Count 169 K/UL (150-450) Mean Platelet Volume 10.4 FL (6.5-10.1) H Neutrophils (%) (Auto) 84.3 % (45.0-75.0) H Lymphocytes (%) (Auto) 7.3 % (20.0-45.0) L Monocytes (%) (Auto) 5.2 % (1.0-10.0) Eosinophils (%) (Auto) 2.1 % (0.0-3.0) Basophils (%) (Auto) 1.1 % (0.0-2.0) Sodium Level 131 MMOL/L (136-145) L Potassium Level 4.6 MMOL/L (3.5-5.1) Chloride Level 99 MMOL/L (98-107) Carbon Dioxide Level 27 MMOL/L (21-32) Anion Gap 6 mmol/L (5-15) Blood Urea Nitrogen 34 mg/dL (7-18) H Creatinine 0.8 MG/DL (0.55-1.30) # Estimat Glomerular Filtration Rate > 60 mL/min (>60) Glucose Level 125 MG/DL (74-106) H Calcium Level 9.0 MG/DL (8.5-10.1) Total Bilirubin 0.5 MG/DL (0.2-1.0) Aspartate Amino Transf (AST/SGOT) 80 U/L (15-37) H Alanine Aminotransferase (ALT/SGPT) 97 U/L (12-78) H Alkaline Phosphatase 84 U/L (46-116) Pro-B-Type Natriuretic Peptide 533 pg/mL (0-125) H Total Protein 6.7 G/DL (6.4-8.2) Albumin 2.5 G/DL (3.4-5.0) L Globulin 4.2 g/dL Albumin/Globulin Ratio 0.6 (1.0-2.7) L Vancomycin Level Trough Pending Pending Current Medications Medications (Trade) Dose Ordered Sig/Madisyn Route PRN Reason Start Time Stop Time Status Last Admin Dose Admin Acetaminophen (Tylenol) 650 mg Q4H PRN ORAL Prn Headache/Temp > 101 03/17/18 17:45 04/14/18 17:44 03/17/18 14:21 Albuterol/ Ipratropium (Albuterol/ Ipratropium) 3 ml EVERY 4 HOURS PRN HHN Shortness of Breath 03/15/18 17:45 03/20/18 17:44 Ceftriaxone Sodium 1 gm/ Dextrose 110 ml @ 220 mls/hr DAILY IVPB 03/16/18 16:30 03/23/18 16:29 03/18/18 08:53 Dextrose (Dextrose 50%) 25 ml STAT PRN IV Hypoglycemia 03/15/18 17:45 04/14/18 17:44 Dextrose (Dextrose 50%) 50 ml STAT PRN IV Hypoglycemia 03/15/18 18:00 04/14/18 17:59 Heparin Sodium (Porcine) (Heparin 5000 units/ml) 5,000 units EVERY 12 HOURS SUBQ 03/15/18 21:00 04/14/18 20:59 03/17/18 09:39 Ipratropium [place] (Atrovent) 500 mcg TIDRT HHN 03/15/18 19:00 03/20/18 18:59 03/18/18 07:15 Lorazepam (Ativan 2mg/ml 1ml) 2 mg EVERY 2 HOURS PRN IV For Anxiety 03/15/18 17:45 03/22/18 17:44 03/17/18 21:38 Ondansetron HCl (Zofran) 4 mg Q6H PRN IVP Nausea & Vomiting 03/15/18 17:45 04/14/18 17:44 Pantoprazole (Protonix) 40 mg DAILY IV 03/16/18 09:00 04/15/18 08:59 03/18/18 08:53 Polyethylene Glycol (Miralax) 17 gm DAILYPRN PRN ORAL Constipation 03/15/18 17:45 04/14/18 17:44 Potassium Chloride 10 meq/ Dextrose 1,005 ml @ 50 mls/hr Q20H6M IV 03/16/18 09:30 04/15/18 09:29 03/18/18 01:58 Vancomycin HCl (Vanco rx to dose) 1 ea DAILY PRN MISC . 03/16/18 08:45 04/15/18 08:44 Vancomycin HCl/ Dextrose 250 ml @ 125 mls/hr Q8H IVPB 03/17/18 00:00 03/22/18 00:00 03/17/18 23:59 Pratik Day M.D. Mar 18, 2018 09:07
--- NOTE | 2018-03-18 10:02 | Diagnostic Imaging Report ---
Indication: Dyspnea Technique: One view of the chest Comparison: 03/16/2018 Findings: Tracheostomy is again demonstrated. The right lung base is completely opacified, likely reflecting right lower lobe and possibly middle lobe atelectasis. As previously, there is probably some pleural fluid present as well. There is some hazy consolidation of the inferior right upper lobe. The left lung and pleural space remain clear. The heart size is normal. Tracheostomy and left chest pacemaker remains Impression: Suspect interim development of atelectasis of the right middle and lower lobes Persistent right pleural effusion and inferior right upper lobe consolidation
[2018-03-18] MEDS: LORazepam Inj 2mg/ml 1ml IV PRN ×3 (11:01→20:13)
--- NOTE | 2018-03-18 11:12 | Pulmonolgy Critical Care Note ---
Critical Care - Asmt/Plan Problems: (1) Acute on chronic respiratory failure (2) Right lower lobe pulmonary infiltrate (3) Sepsis (4) ALS (amyotrophic lateral sclerosis) (5) Pacemaker (6) Feeding by G-tube Respiratory: monitor respiratory rate, CXR Cardiac: continue to monitor HR/BP Renal: F/U I&O, keep IV fluid Infectious Disease: check cultures Gastrointestinal: continue feedings/current rate Endocrine: monitor blood sugar Hematologic: monitor H/H, transfuse if hgb<8.5 Neurologic: PRN Ativan, keep patient comfortable Affect: PRN ativan Prophylaxis: Heparin Time Spent (Minutes): 30 Notes Reviewed: er registrar, cardio, renal Discussed with: nurses, consultants, child support case officerhuman resources training manager - Objective Last 24 Hour Vital Signs Date Time Temp Pulse Resp B/P (MAP) Pulse Ox O2 Delivery O2 Flow Rate FiO2 03/18/18 11:06 98.2 03/18/18 09:04 81 12 40 03/18/18 08:00 40 03/18/18 08:00 93 03/18/18 08:00 98.2 91 14 119/74 (89) 100 98.2 03/18/18 08:00 Mechanical Ventilator 03/18/18 07:25 89 12 100 Mechanical Ventilator 50 03/18/18 07:19 40 03/18/18 07:19 50 03/18/18 07:15 89 12 100 Mechanical Ventilator 50 03/18/18 07:15 89 12 50 03/18/18 05:09 87 12 50 03/18/18 04:00 50 03/18/18 04:00 Mechanical Ventilator 03/18/18 04:00 97.5 85 14 112/64 (80) 100 97.5 03/18/18 03:36 80 03/18/18 03:03 80 12 50 03/18/18 01:26 78 12 50 03/18/18 00:00 Mechanical Ventilator 03/18/18 00:00 97.7 83 16 118/78 (91) 100 97.7 03/17/18 23:45 76 03/17/18 23:00 89 12 50 03/17/18 21:48 84 12 50 03/17/18 20:36 50 03/17/18 20:36 87 12 100 Mechanical Ventilator 50 03/17/18 20:27 86 12 50 03/17/18 20:26 86 12 99 Mechanical Ventilator 50 03/17/18 20:00 Mechanical Ventilator 03/17/18 20:00 97.7 87 20 121/74 (90) 100 97.7 03/17/18 20:00 50 03/17/18 19:48 87 03/17/18 17:14 77 12 50 03/17/18 16:00 99 03/17/18 16:00 97.9 86 12 94/55 (68) 100 97.9 03/17/18 16:00 Mechanical Ventilator 03/17/18 16:00 50 03/17/18 15:23 95 12 50 03/17/18 15:20 98.1 03/17/18 14:21 98.1 03/17/18 13:36 Mechanical Ventilator 03/17/18 13:35 Mechanical Ventilator 03/17/18 13:29 99 12 50 03/17/18 12:00 50 03/17/18 12:00 98.1 102 12 121/64 (83) 100 98.1 03/17/18 12:00 99 03/17/18 12:00 Mechanical Ventilator 03/17/18 11:25 98 12 50 Status: awake Condition: critical Neck: full ROM Lungs: rales, rhonchi Heart: HR/BP stable Abdomen: soft, active bowel sounds Extremities: no C/C/E, edema Micro: Microbiology Date/Time Source Procedure Growth Status 03/15/18 12:20 Blood Blood Culture - Preliminary NO GROWTH AFTER 48 HOURS Resulted 03/15/18 12:05 Blood Blood Culture - Preliminary NO GROWTH AFTER 48 HOURS Resulted 03/16/18 18:30 Sputum Gram Stain - Final Resulted 03/16/18 18:30 Sputum Culture - Preliminary Gram Negative Bacillus 1 Gram Negative Bacillus 2 Resulted 03/15/18 12:00 Nasal Nares MRSA Culture - Final NO METHICILLIN RESISTANT STAPH AUREUS... Complete 03/17/18 00:00 Urine,Clean Catch Urine Culture - Preliminary Resulted 03/15/18 12:00 Rectum VRE Culture - Final Enterococcus Faecium - Vre Complete Critical Care - Subjective ROS Limited/Unobtainable: Yes Condition: critical EKG Rhythm: Sinus Rhythm FI02: 40 Vent Support Breath Rate: 12 Vent Support Mode: AC Vent Tidal Volume: 450 Sputum Amount: Small PEEP: 5.0 PIP: 21 Tube Feeding Amount: 30 I&O: Intake and Output 03/17/18 03/18/18 19:00 07:00 Intake Total 1520 ml 1270 ml Output Total 50 ml 250 ml Balance 1470 ml 1020 ml Free Water 150 ml 110 ml IV Total 1010 ml 800 ml Tube Feeding 360 ml 360 ml Output Urine Total 50 ml 250 ml # Bowel Movements 1 3 CXR: right lower lobe pneumonia Labs: Laboratory Tests Test 03/18/18 07:30 03/18/18 08:30 White Blood Count 17.6 K/UL (4.8-10.8) H Red Blood Count 3.29 M/UL (4.20-5.40) L Hemoglobin 10.0 G/DL (12.0-16.0) L Hematocrit 30.3 % (37.0-47.0) L Mean Corpuscular Volume 92 FL (80-99) Mean Corpuscular Hemoglobin 30.3 PG (27.0-31.0) Mean Corpuscular Hemoglobin Concent 32.9 G/DL (32.0-36.0) Red Cell Distribution Width 11.8 % (11.6-14.8) Platelet Count 169 K/UL (150-450) Mean Platelet Volume 10.4 FL (6.5-10.1) H Neutrophils (%) (Auto) 84.3 % (45.0-75.0) H Lymphocytes (%) (Auto) 7.3 % (20.0-45.0) L Monocytes (%) (Auto) 5.2 % (1.0-10.0) Eosinophils (%) (Auto) 2.1 % (0.0-3.0) Basophils (%) (Auto) 1.1 % (0.0-2.0) Sodium Level 131 MMOL/L (136-145) L Potassium Level 4.6 MMOL/L (3.5-5.1) Chloride Level 99 MMOL/L (98-107) Carbon Dioxide Level 27 MMOL/L (21-32) Anion Gap 6 mmol/L (5-15) Blood Urea Nitrogen 34 mg/dL (7-18) H Creatinine 0.8 MG/DL (0.55-1.30) # Estimat Glomerular Filtration Rate > 60 mL/min (>60) Glucose Level 125 MG/DL (74-106) H Calcium Level 9.0 MG/DL (8.5-10.1) Total Bilirubin 0.5 MG/DL (0.2-1.0) Aspartate Amino Transf (AST/SGOT) 80 U/L (15-37) H Alanine Aminotransferase (ALT/SGPT) 97 U/L (12-78) H Alkaline Phosphatase 84 U/L (46-116) Pro-B-Type Natriuretic Peptide 533 pg/mL (0-125) H Total Protein 6.7 G/DL (6.4-8.2) Albumin 2.5 G/DL (3.4-5.0) L Globulin 4.2 g/dL Albumin/Globulin Ratio 0.6 (1.0-2.7) L Vancomycin Level Trough > 50.0 ug/mL (5.0-12.0) H Anastasiia Hines MD Mar 18, 2018 11:12
[2018-03-18 12:00] VITALS: BP 150/92
--- NOTE | 2018-03-18 13:05 | Consultation ---
History of Present Illness General Date patient seen: Mar 18, 2018 Time patient seen: 12:54 Chief Complaint: Dyspnea/Respdistress Present Illness HPI Patient [facility] from [facility]. Per EMS patient was Desating at 77. Patient is ventilator dependant. patient has Hx of ALS. Patient communicates through a computer that reads her eyes She has a history of ALS, COPD, Vent dependent, pacemaker. Initial evaluation in ER showed high WBC and possible sepsis. She is admitted to [facility] for further evaluation. She recently developed a third degree heart block and had 2 episodes of cardiac arrest that required CPR and defibrillation. The patient underwent permanent pacemaker placement. She is currently stable. PATIENT ON ACVC 12, VT 450, PEEP +5, FIO2 50% Allergies: Coded Allergies: MORPHINE (Verified Allergy, Unknown, 03/15/18) Uncoded Allergies: Paper tape (Allergy, Unknown, 03/17/18) Pcg provide additional information Medication History Scheduled Ascorbic Acid* (Vitamin C*), 500 MG GT DAILY, (Reported) Multivitamin With Minerals (Multivitamins With Minerals*), 1 TAB GT DAILY, ( Reported) Scheduled PRN Acetaminophen* (Acetaminophen 325MG Tablet*), 325 MG ORAL Q4H PRN for For Pain, (Reported) Tramadol Hcl* (Ultram*), 50 MG ORAL Q6H PRN for For Pain, (Reported) Miscellaneous Medications Cranberry (Cranberry), 425 MG GT, (Reported) Ferrous Gluconate (Iron), 330 MG GT, (Reported) Nut.tx.gluc.intoler,Lac-Fr,Soy (Glucerna 1.2 Alo), 1,500 ML PO, (Reported) Patient History Healthcare decision maker PRISCILLA ZEPEDA Resuscitation status Full Code Advanced Directive on File No Review of Systems Constitutional: Reports: no symptoms Eye: Reports: no symptoms ENT: Reports: no symptoms Respiratory: Reports: no symptoms Cardiovascular: Reports: no symptoms Gastrointestinal: Reports: no symptoms Genitourinary: Reports: no symptoms Musculoskeletal: Reports: no symptoms Skin: Reports: no symptoms Psychiatric: Reports: no symptoms Neurological: Reports: no symptoms Endocrine: Reports: no symptoms Hematologic/Lymphatic: Reports: no symptoms Physical Exam General Appearance: no apparent distress Lines, tubes and drains: peripheral HEENT: normocephalic, anicteric Neck: non-tender, normal alignment, supple Respiratory/Chest: chest wall non-tender, lungs clear Breasts: no masses Cardiovascular/Chest: normal peripheral pulses, normal rate Abdomen: normal bowel sounds, non tender Extremities: normal range of motion, non-tender Skin Exam: normal pigmentation, warm/dry 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, no motor/sensory deficits Musculoskeletal: normal muscle bulk Last 24 Hour Vital Signs Date Time Temp Pulse Resp B/P (MAP) Pulse Ox O2 Delivery O2 Flow Rate FiO2 03/18/18 12:31 81 12 40 03/18/18 12:22 87 12 100 Mechanical Ventilator 50 03/18/18 12:13 40 03/18/18 12:12 90 12 100 Mechanical Ventilator 50 03/18/18 12:00 98.2 100 14 150/92 (111) 100 98.2 03/18/18 11:06 98.2 03/18/18 10:54 101 12 40 03/18/18 09:04 81 12 40 03/18/18 08:00 40 03/18/18 08:00 93 03/18/18 08:00 98.2 91 14 119/74 (89) 100 98.2 03/18/18 08:00 Mechanical Ventilator 03/18/18 07:25 89 12 100 Mechanical Ventilator 50 03/18/18 07:19 40 03/18/18 07:19 50 03/18/18 07:15 89 12 100 Mechanical Ventilator 50 03/18/18 07:15 89 12 50 03/18/18 05:09 87 12 50 03/18/18 04:00 50 03/18/18 04:00 Mechanical Ventilator 03/18/18 04:00 97.5 85 14 112/64 (80) 100 97.5 03/18/18 03:36 80 03/18/18 03:03 80 12 50 03/18/18 01:26 78 12 50 03/18/18 00:00 Mechanical Ventilator 03/18/18 00:00 97.7 83 16 118/78 (91) 100 97.7 03/17/18 23:45 76 03/17/18 23:00 89 12 50 03/17/18 21:48 84 12 50 03/17/18 20:36 50 03/17/18 20:36 87 12 100 Mechanical Ventilator 50 03/17/18 20:27 86 12 50 03/17/18 20:26 86 12 99 Mechanical Ventilator 50 03/17/18 20:00 Mechanical Ventilator 03/17/18 20:00 97.7 87 20 121/74 (90) 100 97.7 03/17/18 20:00 50 03/17/18 19:48 87 03/17/18 17:14 77 12 50 03/17/18 16:00 99 03/17/18 16:00 97.9 86 12 94/55 (68) 100 97.9 03/17/18 16:00 Mechanical Ventilator 03/17/18 16:00 50 03/17/18 15:23 95 12 50 03/17/18 15:20 98.1 03/17/18 14:21 98.1 03/17/18 13:36 Mechanical Ventilator 03/17/18 13:35 Mechanical Ventilator 03/17/18 13:29 99 12 50 Intake and Output 03/17/18 03/18/18 19:00 07:00 Intake Total 1520 ml 1270 ml Output Total 50 ml 250 ml Balance 1470 ml 1020 ml Free Water 150 ml 110 ml IV Total 1010 ml 800 ml Tube Feeding 360 ml 360 ml Output Urine Total 50 ml 250 ml # Bowel Movements 1 3 Laboratory Tests Test 03/18/18 07:30 03/18/18 08:30 White Blood Count 17.6 K/UL (4.8-10.8) H Red Blood Count 3.29 M/UL (4.20-5.40) L Hemoglobin 10.0 G/DL (12.0-16.0) L Hematocrit 30.3 % (37.0-47.0) L Mean Corpuscular Volume 92 FL (80-99) Mean Corpuscular Hemoglobin 30.3 PG (27.0-31.0) Mean Corpuscular Hemoglobin Concent 32.9 G/DL (32.0-36.0) Red Cell Distribution Width 11.8 % (11.6-14.8) Platelet Count 169 K/UL (150-450) Mean Platelet Volume 10.4 FL (6.5-10.1) H Neutrophils (%) (Auto) 84.3 % (45.0-75.0) H Lymphocytes (%) (Auto) 7.3 % (20.0-45.0) L Monocytes (%) (Auto) 5.2 % (1.0-10.0) Eosinophils (%) (Auto) 2.1 % (0.0-3.0) Basophils (%) (Auto) 1.1 % (0.0-2.0) Sodium Level 131 MMOL/L (136-145) L Potassium Level 4.6 MMOL/L (3.5-5.1) Chloride Level 99 MMOL/L (98-107) Carbon Dioxide Level 27 MMOL/L (21-32) Anion Gap 6 mmol/L (5-15) Blood Urea Nitrogen 34 mg/dL (7-18) H Creatinine 0.8 MG/DL (0.55-1.30) # Estimat Glomerular Filtration Rate > 60 mL/min (>60) Glucose Level 125 MG/DL (74-106) H Calcium Level 9.0 MG/DL (8.5-10.1) Total Bilirubin 0.5 MG/DL (0.2-1.0) Aspartate Amino Transf (AST/SGOT) 80 U/L (15-37) H Alanine Aminotransferase (ALT/SGPT) 97 U/L (12-78) H Alkaline Phosphatase 84 U/L (46-116) Pro-B-Type Natriuretic Peptide 533 pg/mL (0-125) H Total Protein 6.7 G/DL (6.4-8.2) Albumin 2.5 G/DL (3.4-5.0) L Globulin 4.2 g/dL Albumin/Globulin Ratio 0.6 (1.0-2.7) L Vancomycin Level Trough > 50.0 ug/mL (5.0-12.0) H Height (Feet): 5 Height (Inches): 10.00 Weight (Pounds): 180 Medications Current Medications Medications (Trade) Dose Ordered Sig/Madisyn Route PRN Reason Start Time Stop Time Status Last Admin Dose Admin Acetaminophen (Tylenol) 650 mg Q4H PRN ORAL Prn Headache/Temp > 101 03/17/18 17:45 04/14/18 17:44 03/18/18 11:06 Albuterol/ Ipratropium (Albuterol/ Ipratropium) 3 ml EVERY 4 HOURS PRN HHN Shortness of Breath 03/15/18 17:45 03/20/18 17:44 Ceftriaxone Sodium 1 gm/ Dextrose 110 ml @ 220 mls/hr DAILY IVPB 03/16/18 16:30 03/23/18 16:29 03/18/18 08:53 Dextrose (Dextrose 50%) 25 ml STAT PRN IV Hypoglycemia 03/15/18 17:45 04/14/18 17:44 Dextrose (Dextrose 50%) 50 ml STAT PRN IV Hypoglycemia 03/15/18 18:00 04/14/18 17:59 Heparin Sodium (Porcine) (Heparin 5000 units/ml) 5,000 units EVERY 12 HOURS SUBQ 03/15/18 21:00 04/14/18 20:59 03/17/18 09:39 Ipratropium [place] (Atrovent) 500 mcg TIDRT HHN 03/15/18 19:00 03/20/18 18:59 03/18/18 12:12 Lorazepam (Ativan 2mg/ml 1ml) 2 mg EVERY 2 HOURS PRN IV For Anxiety 03/15/18 17:45 03/22/18 17:44 03/18/18 11:01 Ondansetron HCl (Zofran) 4 mg Q6H PRN IVP Nausea & Vomiting 03/15/18 17:45 04/14/18 17:44 Pantoprazole (Protonix) 40 mg DAILY IV 03/16/18 09:00 04/15/18 08:59 03/18/18 08:53 Polyethylene Glycol (Miralax) 17 gm DAILYPRN PRN ORAL Constipation 03/15/18 17:45 04/14/18 17:44 Potassium Chloride 10 meq/ Dextrose 1,005 ml @ 50 mls/hr Q20H6M IV 03/16/18 09:30 04/15/18 09:29 03/18/18 01:58 Vancomycin HCl (Vanco rx to dose) 1 ea DAILY PRN MISC . 03/16/18 08:45 04/15/18 08:44 Assessment/Plan Status: stable Assessment/Plan Assessment: (1) Acute on chronic respiratory failure (2) Right lower lobe pulmonary infiltrate (3) Sepsis (4) ALS (amyotrophic lateral sclerosis) (5) Pacemaker (6) Feeding by G-tube Plan: Continue antibiotics for PNA Possible right thoracentesis if no improvement Trach care PPM working appropriately Echocardiogram to evaluate LV function Gi Ppx DVT ppx Pratik Yan M.D. Mar 18, 2018 13:05
[2018-03-18 15:52] VITALS: BP 92/59
[2018-03-18 20:00] VITALS: BP 145/88
[2018-03-19] VITALS: BP 122/75
[2018-03-19 04:00] VITALS: BP 92/59
[2018-03-19] MEDS: Ipratropium 0.02% Inh Soln 2.5ml UD HHN SCH ×3 (07:16→18:59)
--- NOTE | 2018-03-19 07:43 | Infectious Diseases Prog Note ---
Assessment/Plan Assessment/Plan ASSESSMENT: 1. The patient is a 52-year-old female, who was admitted to this medical center with: 2. Respiratory distress possible pneumonia Sputum growing GNRx2, (the patient does not have much respiratory secretions, chest x-ray is unremarkable), however, needs to rule out probable underlying healthcare-associated pneumonia. - Sputum 03/17/18 - P.a. and Providencia and GPC 3. Rule out bacteremia. - Blood Cx 03/16/18 NGTD 4. Rule out UTI - UCx 03/17/18 NGTD - unremarkable UA). 5. Leukocytosis. - Improving 6. Afebrile. 7. No diarrhea to rule out C. difficile. PLAN: Start Meropenem #1 Continue Vancomycin #3 pending final cultures - D/C 03/19 SP Ceftrixone #3 - f/u CBC. - Monitor cultures (blood, urine, sputum). - Monitor chest x-ray for possible development of infiltrate. - f/u C. dif Thank you, Dr. Hines, for allowing us to participate in the care of this patient. I will follow the patient with you during this hospitalization. Subjective Allergies: Coded Allergies: MORPHINE (Verified Allergy, Unknown, 03/15/18) Uncoded Allergies: Paper tape (Allergy, Unknown, 03/17/18) Pcg provide additional information Subjective Patient afebrile On Vent 30% O2 No acute events Types on commuter with eyes Objective Vital Signs Last 24 Hour Vital Signs Date Time Temp Pulse Resp B/P (MAP) Pulse Ox O2 Delivery O2 Flow Rate FiO2 03/19/18 07:24 73 12 100 Mechanical Ventilator 40 03/19/18 07:14 40 03/19/18 07:14 83 12 99 Mechanical Ventilator 15.0 40 03/19/18 07:11 73 12 40 03/19/18 04:55 70 12 40 03/19/18 04:00 97.3 72 12 92/59 (70) 100 97.3 03/19/18 04:00 Mechanical Ventilator 03/19/18 04:00 40 03/19/18 04:00 68 03/19/18 03:06 72 12 40 03/19/18 01:05 74 12 40 03/19/18 00:00 97.5 92 12 122/75 (91) 100 97.5 03/19/18 00:00 79 03/19/18 00:00 Mechanical Ventilator 03/18/18 23:27 88 12 40 03/18/18 21:10 84 12 40 03/18/18 20:00 40 03/18/18 20:00 Mechanical Ventilator 03/18/18 20:00 98.2 102 12 145/88 (107) 100 98.2 03/18/18 19:40 79 12 100 Mechanical Ventilator 40 03/18/18 19:34 40 03/18/18 19:22 82 12 40 03/18/18 19:22 82 12 100 Mechanical Ventilator 40 03/18/18 19:21 90 03/18/18 16:50 80 12 40 03/18/18 16:00 Mechanical Ventilator 03/18/18 16:00 40 03/18/18 15:52 97.3 79 14 92/59 (70) 100 97.3 03/18/18 15:35 75 03/18/18 14:44 86 12 40 03/18/18 12:31 81 12 40 03/18/18 12:22 87 12 100 Mechanical Ventilator 50 03/18/18 12:13 40 03/18/18 12:12 90 12 100 Mechanical Ventilator 50 03/18/18 12:05 98.2 03/18/18 12:00 Mechanical Ventilator 03/18/18 12:00 98.2 100 14 150/92 (111) 100 98.2 03/18/18 12:00 40 03/18/18 11:34 103 03/18/18 11:06 98.2 03/18/18 10:54 101 12 40 03/18/18 09:04 81 12 40 03/18/18 08:00 40 03/18/18 08:00 93 03/18/18 08:00 98.2 91 14 119/74 (89) 100 98.2 03/18/18 08:00 Mechanical Ventilator Height (Feet): 5 Height (Inches): 10.00 Weight (Pounds): 180 Objective GEN: Patient communicated with eyes/computer HEENT: No pale conjunctivae. No icterus. Trached CHEST: CTAB, No Wheezing, Pacemaker in place (no erythema or breakdown of overlying skin) HEART: RRR, S1, S2. ABDOMEN: Soft. PEG tube in place. ( no surrounding erythema) EXTREMITIES: No cyanosis at this time. NEUROLOGIC: The patient opens eyes to voice SKIN: No rash. Microbiology Date/Time Source Procedure Growth Status 03/16/18 18:30 Sputum Gram Stain - Final Resulted 03/16/18 18:30 Sputum Culture - Preliminary Pseudomonas Aeruginosa Providencia Stuartii Gram Positive Cocci Resulted 03/17/18 00:00 Urine,Clean Catch Urine Culture - Preliminary Resulted Laboratory Tests Test 03/18/18 08:30 Vancomycin Level Trough > 50.0 ug/mL (5.0-12.0) H Current Medications Medications (Trade) Dose Ordered Sig/Madisyn Route PRN Reason Start Time Stop Time Status Last Admin Dose Admin Acetaminophen (Tylenol) 650 mg Q4H PRN ORAL Prn Headache/Temp > 101 03/17/18 17:45 04/14/18 17:44 03/18/18 20:14 Albuterol/ Ipratropium (Albuterol/ Ipratropium) 3 ml EVERY 4 HOURS PRN HHN Shortness of Breath 03/15/18 17:45 03/20/18 17:44 Ceftriaxone Sodium 1 gm/ Dextrose 110 ml @ 220 mls/hr DAILY IVPB 03/16/18 16:30 03/23/18 16:29 03/18/18 08:53 Dextrose (Dextrose 50%) 25 ml STAT PRN IV Hypoglycemia 03/15/18 17:45 04/14/18 17:44 Dextrose (Dextrose 50%) 50 ml STAT PRN IV Hypoglycemia 03/15/18 18:00 04/14/18 17:59 Heparin Sodium (Porcine) (Heparin 5000 units/ml) 5,000 units EVERY 12 HOURS SUBQ 03/15/18 21:00 04/14/18 20:59 03/17/18 09:39 Ipratropium [place] (Atrovent) 500 mcg TIDRT HHN 03/15/18 19:00 03/20/18 18:59 03/19/18 07:16 Lorazepam (Ativan 2mg/ml 1ml) 2 mg EVERY 2 HOURS PRN IV For Anxiety 03/15/18 17:45 03/22/18 17:44 03/18/18 20:13 Ondansetron HCl (Zofran) 4 mg Q6H PRN IVP Nausea & Vomiting 03/15/18 17:45 04/14/18 17:44 Pantoprazole (Protonix) 40 mg DAILY IV 03/16/18 09:00 04/15/18 08:59 03/18/18 08:53 Polyethylene Glycol (Miralax) 17 gm DAILYPRN PRN ORAL Constipation 03/15/18 17:45 04/14/18 17:44 Potassium Chloride 10 meq/ Dextrose 1,005 ml @ 50 mls/hr Q20H6M IV 03/16/18 09:30 04/15/18 09:29 03/18/18 21:44 Vancomycin HCl (Vanco rx to dose) 1 ea DAILY PRN MISC . 03/16/18 08:45 04/15/18 08:44 Pratik Day M.D. Mar 19, 2018 07:43
[2018-03-19 08:00] VITALS: BP 120/70
[2018-03-19] MEDS: Pantoprazole Inj IV SCH (08:23)
[2018-03-19] MEDS: LORazepam Inj 2mg/ml 1ml IV PRN ×2 (08:23→13:41)
[2018-03-19] MEDS: Heparin 5000 units/ml inj SUBQ SCH ×2 (08:23→21:00)
--- NOTE | 2018-03-19 10:45 | Pulmonolgy Critical Care Note ---
Critical Care - Asmt/Plan Problems: (1) Acute on chronic respiratory failure (2) Right lower lobe pulmonary infiltrate (3) Sepsis (4) ALS (amyotrophic lateral sclerosis) (5) Pacemaker (6) Feeding by G-tube Respiratory: monitor respiratory rate, adjust FIO2, CXR Cardiac: continue to monitor HR/BP Renal: F/U I&O Infectious Disease: check cultures, continue antibiotics Gastrointestinal: continue feedings/current rate Endocrine: monitor blood sugar Hematologic: monitor H/H Neurologic: PRN Ativan Affect: PRN ativan Prophylaxis: Protonix Disposition: keep in ICU Time Spent (Minutes): 40 Notes Reviewed: ID Discussed with: nurses, consultants, 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 environmental health - Objective Last 24 Hour Vital Signs Date Time Temp Pulse Resp B/P (MAP) Pulse Ox O2 Delivery O2 Flow Rate FiO2 03/19/18 09:00 75 12 40 03/19/18 08:00 40 03/19/18 08:00 78 03/19/18 08:00 Mechanical Ventilator 03/19/18 08:00 97.5 84 18 120/70 (87) 99 97.5 03/19/18 07:24 73 12 100 Mechanical Ventilator 40 03/19/18 07:14 40 03/19/18 07:14 83 12 99 Mechanical Ventilator 15.0 40 03/19/18 07:11 73 12 40 03/19/18 04:55 70 12 40 03/19/18 04:00 97.3 72 12 92/59 (70) 100 97.3 03/19/18 04:00 Mechanical Ventilator 03/19/18 04:00 40 03/19/18 04:00 68 03/19/18 03:06 72 12 40 03/19/18 01:05 74 12 40 03/19/18 00:00 97.5 92 12 122/75 (91) 100 97.5 03/19/18 00:00 79 03/19/18 00:00 Mechanical Ventilator 03/18/18 23:27 88 12 40 03/18/18 21:10 84 12 40 03/18/18 20:00 40 03/18/18 20:00 Mechanical Ventilator 03/18/18 20:00 98.2 102 12 145/88 (107) 100 98.2 03/18/18 19:40 79 12 100 Mechanical Ventilator 40 03/18/18 19:34 40 03/18/18 19:22 82 12 40 03/18/18 19:22 82 12 100 Mechanical Ventilator 40 03/18/18 19:21 90 03/18/18 16:50 80 12 40 03/18/18 16:00 Mechanical Ventilator 03/18/18 16:00 40 03/18/18 15:52 97.3 79 14 92/59 (70) 100 97.3 03/18/18 15:35 75 03/18/18 14:44 86 12 40 03/18/18 12:31 81 12 40 03/18/18 12:22 87 12 100 Mechanical Ventilator 50 03/18/18 12:13 40 03/18/18 12:12 90 12 100 Mechanical Ventilator 50 03/18/18 12:05 98.2 03/18/18 12:00 Mechanical Ventilator 03/18/18 12:00 98.2 100 14 150/92 (111) 100 98.2 03/18/18 12:00 40 03/18/18 11:34 103 03/18/18 11:06 98.2 03/18/18 10:54 101 12 40 Status: sedated Condition: critical Neck: full ROM Lungs: clear Heart: HR/BP stable Abdomen: soft, active bowel sounds Extremities: no C/C/E, edema Micro: Microbiology Date/Time Source Procedure Growth Status 03/16/18 18:30 Sputum Gram Stain - Final Resulted 03/16/18 18:30 Sputum Culture - Preliminary Pseudomonas Aeruginosa Providencia Stuartii Gram Positive Cocci Resulted 03/17/18 00:00 Urine,Clean Catch Urine Culture - Preliminary Mixed Gram Positive Organism Resulted Critical Care - Subjective ROS Limited/Unobtainable: No Condition: critical EKG Rhythm: Sinus Rhythm FI02: 40 Vent Support Breath Rate: 12 Vent Support Mode: AC Vent Tidal Volume: 450 Sputum Amount: Small PEEP: 5.0 PIP: 26 Tube Feeding Amount: 30 I&O: Intake and Output 03/18/18 03/19/18 19:00 07:00 Intake Total 1020 ml 893 ml Output Total 250 ml 300 ml Balance 770 ml 593 ml Free Water 100 ml IV Total 560 ml 513 ml Tube Feeding 360 ml 330 ml Other 50 ml Output Urine Total 250 ml 300 ml # Voids 1 # Bowel Movements 3 4 CXR: RLL atelectasis Anastasiia Hines MD Mar 19, 2018 10:45
[2018-03-19 12:00] VITALS: BP 134/81
[2018-03-19] MEDS: Meropenem 1 GM in NS 55 ML IVPB SCH ×2 (14:00→22:00)
--- NOTE | 2018-03-19 15:31 | Cardiology Progress Note ---
Assessment/Plan Status: stable Assessment/Plan Assessment: (1) Acute on chronic respiratory failure (2) Right lower lobe pulmonary infiltrate (3) Sepsis (4) ALS (amyotrophic lateral sclerosis) (5) Pacemaker (6) Feeding by G-tube Plan: Continue antibiotics for PNA Possible right thoracentesis if no improvement Trach care, pulmonary toilet PPM working appropriately Echocardiogram to evaluate LV function Gi Ppx DVT ppx Subjective Cardiovascular: Reports: no symptoms Respiratory: Reports: no symptoms Gastrointestinal/Abdominal: Reports: no symptoms Genitourinary: Reports: no symptoms Subjective Patient is alert and oriented x4. monitoring and evaluation advisor shows SR, a-paced. Pacemaker located on L chest. Trach to vent, portex 7, AC12, TV: 450, FiO2: 40%, PEEP: 5. Shows no signs of respiratory or cardiac distress. GT is in place and patent with Jevity 1.2 running. No residual noted. CXR with Persistent right pleural effusion and inferior right upper lobe consolidation, LE doppler negative for DVT AFebrile vitals stable, on Abx Objective Last 24 Hour Vital Signs Date Time Temp Pulse Resp B/P (MAP) Pulse Ox O2 Delivery O2 Flow Rate FiO2 03/19/18 14:15 40 03/19/18 14:15 80 12 99 Mechanical Ventilator 15.0 40 03/19/18 13:14 78 12 40 03/19/18 12:00 40 03/19/18 12:00 97.4 61 18 134/81 (98) 99 97.4 03/19/18 12:00 Mechanical Ventilator 03/19/18 12:00 72 03/19/18 11:03 72 12 40 03/19/18 09:00 75 12 40 03/19/18 08:00 40 03/19/18 08:00 78 03/19/18 08:00 Mechanical Ventilator 03/19/18 08:00 97.5 84 18 120/70 (87) 99 97.5 03/19/18 07:24 73 12 100 Mechanical Ventilator 40 03/19/18 07:14 40 03/19/18 07:14 83 12 99 Mechanical Ventilator 15.0 40 03/19/18 07:11 73 12 40 03/19/18 04:55 70 12 40 03/19/18 04:00 97.3 72 12 92/59 (70) 100 97.3 03/19/18 04:00 Mechanical Ventilator 03/19/18 04:00 40 03/19/18 04:00 68 03/19/18 03:06 72 12 40 03/19/18 01:05 74 12 40 03/19/18 00:00 97.5 92 12 122/75 (91) 100 97.5 03/19/18 00:00 79 03/19/18 00:00 Mechanical Ventilator 03/18/18 23:27 88 12 40 03/18/18 21:10 84 12 40 03/18/18 20:00 40 03/18/18 20:00 Mechanical Ventilator 03/18/18 20:00 98.2 102 12 145/88 (107) 100 98.2 03/18/18 19:40 79 12 100 Mechanical Ventilator 40 03/18/18 19:34 40 03/18/18 19:22 82 12 40 03/18/18 19:22 82 12 100 Mechanical Ventilator 40 03/18/18 19:21 90 03/18/18 16:50 80 12 40 03/18/18 16:00 Mechanical Ventilator 03/18/18 16:00 40 03/18/18 15:52 97.3 79 14 92/59 (70) 100 97.3 03/18/18 15:35 75 General Appearance: no apparent distress, alert EENT: PERRL/EOMI, normal ENT inspection Neck: non-tender, normal alignment, supple Rhythm: NSR Cardiovascular: normal peripheral pulses, normal rate, regular rhythm Respiratory/Chest: chest wall non-tender, lungs clear Abdomen: normal bowel sounds Extremities: normal range of motion, non-tender, no calf tenderness, no swelling, normal capillary refill Neurologic: no motor/sensory deficits, abnormal gait, alert, oriented x 3, responsive Intake and Output 03/18/18 03/19/18 19:00 07:00 Intake Total 1020 ml 893 ml Output Total 250 ml 300 ml Balance 770 ml 593 ml Free Water 100 ml IV Total 560 ml 513 ml Tube Feeding 360 ml 330 ml Other 50 ml Output Urine Total 250 ml 300 ml # Voids 1 # Bowel Movements 3 4 Microbiology Date/Time Source Procedure Growth Status 03/16/18 18:30 Sputum Gram Stain - Final Resulted 03/16/18 18:30 Sputum Culture - Preliminary Pseudomonas Aeruginosa Providencia Stuartii Gram Positive Cocci Resulted 03/17/18 00:00 Urine,Clean Catch Urine Culture - Preliminary Mixed Gram Positive Organism Resulted Pratik Yan M.D. Mar 19, 2018 15:31
[2018-03-19 16:00] VITALS: BP 127/80
[2018-03-19] MEDS: Potassium Chloride 10 MEQ in D5W 1000ml 1,000 ML IV SCH (17:54)
[2018-03-19 20:00] VITALS: BP 153/86
[2018-03-20] VITALS: BP 125/79
[2018-03-20 04:00] VITALS: BP 156/95
[2018-03-20] MEDS: LORazepam Inj 2mg/ml 1ml IV PRN ×3 (04:32→22:33)
[2018-03-20] MEDS: Meropenem 1 GM in NS 55 ML IVPB SCH ×3 (06:24→22:33)
[2018-03-20 06:50] LABS: BASOPHILS % (AUTO) 0.5 % (0.0-2.0); EOSINOPHILS % (AUTO) 3.2 % (0.0-3.0); HEMATOCRIT 33.6 % (37.0-47.0); LYMPHOCYTES % (AUTO) 9.7 % (20.0-45.0); MEAN CORPUSCULAR VOLUME 92 FL (80-99); MONOCYTES % (AUTO) 5.5 % (1.0-10.0); NEUTROPHILS % (AUTO) 81.1 % (45.0-75.0); PLATELET COUNT 207 K/UL (150-450); RED BLOOD COUNT 3.66 M/UL (4.20-5.40); RED CELL DISTRIBUTION WIDTH 11.3 % (11.6-14.8); WHITE BLOOD COUNT 11.6 K/UL (4.8-10.8)
[2018-03-20 07:19] LABS: ALANINE AMINOTRANSFERASE 105 U/L (12-78); ALBUMIN 2.6 G/DL (3.4-5.0); ALBUMIN/GLOBULIN RATIO 0.5 (1.0-2.7); ALKALINE PHOSPHATASE 121 U/L (46-116); ANION GAP 10 mmol/L (5-15); ASPARTATE AMINO TRANSFERASE 56 U/L (15-37); BILIRUBIN,TOTAL 0.4 MG/DL (0.2-1.0); BLOOD UREA NITROGEN 46 mg/dL (7-18); CALCIUM 9.2 MG/DL (8.5-10.1); CARBON DIOXIDE 26 MMOL/L (21-32); CHLORIDE 98 MMOL/L (98-107); CREATININE 1.4 MG/DL (0.55-1.30); PHOSPHORUS 7.5 MG/DL (2.5-4.9); POTASSIUM 4.9 MMOL/L (3.5-5.1); SODIUM 134 MMOL/L (136-145)
[2018-03-20] MEDS: Ipratropium 0.02% Inh Soln 2.5ml UD HHN SCH ×3 (07:21→19:19)
[2018-03-20 08:00] VITALS: BP 120/85
[2018-03-20] MEDS: Heparin 5000 units/ml inj SUBQ SCH ×2 (08:39→21:00)
[2018-03-20] MEDS: Pantoprazole Inj IV SCH (08:48)
--- NOTE | 2018-03-20 10:16 | Pulmonolgy Critical Care Note ---
Critical Care - Asmt/Plan Problems: (1) Acute on chronic respiratory failure (2) Right lower lobe pulmonary infiltrate (3) Sepsis (4) ALS (amyotrophic lateral sclerosis) (5) Pacemaker (6) Feeding by G-tube Respiratory: monitor respiratory rate, adjust FIO2, CXR Cardiac: continue to monitor HR/BP Renal: F/U I&O Infectious Disease: check cultures, continue antibiotics Gastrointestinal: continue feedings/current rate Endocrine: monitor blood sugar, check HgA1C Neurologic: PRN Ativan, PRN Morphine Prophylaxis: Protonix Disposition: keep in ICU Notes Reviewed: cardio, renal Discussed with: nurses, consultants, classification case managersecurity operations manager - Objective Last 24 Hour Vital Signs Date Time Temp Pulse Resp B/P (MAP) Pulse Ox O2 Delivery O2 Flow Rate FiO2 03/20/18 09:28 79 12 40 03/20/18 08:00 Mechanical Ventilator 03/20/18 08:00 97.2 89 18 120/85 (97) 100 97.2 03/20/18 08:00 40 03/20/18 07:30 74 12 100 Mechanical Ventilator 40 03/20/18 07:24 75 12 40 03/20/18 07:24 40 03/20/18 07:24 76 12 99 Mechanical Ventilator 40 03/20/18 05:24 95 12 40 03/20/18 04:00 98.7 98 21 156/95 (115) 98 98.7 03/20/18 04:00 107 03/20/18 04:00 40 03/20/18 04:00 Mechanical Ventilator 03/20/18 03:10 89 12 40 03/20/18 00:48 72 12 40 03/20/18 00:00 97.7 89 20 125/79 (94) 98 97.7 03/20/18 00:00 Mechanical Ventilator 03/19/18 22:43 89 12 40 03/19/18 20:58 81 12 40 03/19/18 20:00 40 03/19/18 20:00 98.2 96 19 153/86 (108) 98 98.2 03/19/18 20:00 81 03/19/18 20:00 Mechanical Ventilator 03/19/18 19:10 76 12 100 Mechanical Ventilator 40 03/19/18 18:58 74 12 99 Mechanical Ventilator 15.0 40 03/19/18 18:58 40 03/19/18 18:57 74 12 40 03/19/18 16:37 Mechanical Ventilator 03/19/18 16:33 79 12 40 03/19/18 16:00 88 03/19/18 16:00 40 03/19/18 16:00 97.8 90 18 127/80 (96) 98 97.8 03/19/18 14:45 75 12 40 03/19/18 14:28 78 12 100 Mechanical Ventilator 40 03/19/18 14:15 40 03/19/18 14:15 80 12 99 Mechanical Ventilator 15.0 40 03/19/18 13:14 78 12 40 03/19/18 12:00 40 03/19/18 12:00 97.4 61 18 134/81 (98) 99 97.4 03/19/18 12:00 Mechanical Ventilator 03/19/18 12:00 72 03/19/18 11:03 72 12 40 Status: awake Condition: critical HEENT: atraumatic Lungs: clear Heart: HR/BP stable Abdomen: soft, active bowel sounds Extremities: edema Decubiti: location Critical Care - Subjective ROS Limited/Unobtainable: Yes Condition: critical EKG Rhythm: Sinus Rhythm FI02: 40 Vent Support Breath Rate: 12 Vent Support Mode: AC Vent Tidal Volume: 450 Sputum Amount: Small PEEP: 5.0 PIP: 23 Tube Feeding Amount: 30 I&O: Intake and Output 03/19/18 03/20/18 19:00 07:00 Intake Total 430 ml 610 ml Output Total 350 ml Balance 430 ml 260 ml Free Water 40 ml 100 ml IV Total 150 ml Tube Feeding 360 ml 360 ml Blood Product 30 ml Output Urine Total 350 ml # Bowel Movements 4 3 Labs: Laboratory Tests Test 03/20/18 05:06 White Blood Count 11.6 K/UL (4.8-10.8) H Red Blood Count 3.66 M/UL (4.20-5.40) L Hemoglobin 11.0 G/DL (12.0-16.0) L Hematocrit 33.6 % (37.0-47.0) L Mean Corpuscular Volume 92 FL (80-99) Mean Corpuscular Hemoglobin 30.0 PG (27.0-31.0) Mean Corpuscular Hemoglobin Concent 32.7 G/DL (32.0-36.0) Red Cell Distribution Width 11.3 % (11.6-14.8) L Platelet Count 207 K/UL (150-450) Mean Platelet Volume 9.1 FL (6.5-10.1) Neutrophils (%) (Auto) 81.1 % (45.0-75.0) H Lymphocytes (%) (Auto) 9.7 % (20.0-45.0) L Monocytes (%) (Auto) 5.5 % (1.0-10.0) Eosinophils (%) (Auto) 3.2 % (0.0-3.0) H Basophils (%) (Auto) 0.5 % (0.0-2.0) Sodium Level 134 MMOL/L (136-145) L Potassium Level 4.9 MMOL/L (3.5-5.1) Chloride Level 98 MMOL/L (98-107) Carbon Dioxide Level 26 MMOL/L (21-32) Anion Gap 10 mmol/L (5-15) Blood Urea Nitrogen 46 mg/dL (7-18) H Creatinine 1.4 MG/DL (0.55-1.30) H Estimat Glomerular Filtration Rate 47.5 mL/min (>60) Glucose Level 132 MG/DL (74-106) H Calcium Level 9.2 MG/DL (8.5-10.1) Phosphorus Level 7.5 MG/DL (2.5-4.9) H Magnesium Level 2.4 MG/DL (1.8-2.4) Total Bilirubin 0.4 MG/DL (0.2-1.0) Aspartate Amino Transf (AST/SGOT) 56 U/L (15-37) H Alanine Aminotransferase (ALT/SGPT) 105 U/L (12-78) H Alkaline Phosphatase 121 U/L (46-116) H Total Protein 7.6 G/DL (6.4-8.2) Albumin 2.6 G/DL (3.4-5.0) L Globulin 5.0 g/dL Albumin/Globulin Ratio 0.5 (1.0-2.7) L Random Vancomycin Level > 50.0 ug/mL Anastasiia Hines MD Mar 20, 2018 10:16
--- NOTE | 2018-03-20 10:57 | Cardiology Progress Note ---
Assessment/Plan Status: stable Assessment/Plan Assessment: (1) Acute on chronic respiratory failure (2) Right lower lobe pulmonary infiltrate (3) Sepsis (4) ALS (amyotrophic lateral sclerosis) (5) Pacemaker (6) Feeding by G-tube Plan: Continue antibiotics for PNA Possible right thoracentesis if no improvement Trach care, pulmonary toilet PPM working appropriately Echocardiogram to evaluate LV function Gi Ppx DVT ppx Physical therapy Wound care Subjective Cardiovascular: Reports: no symptoms Respiratory: Reports: no symptoms Gastrointestinal/Abdominal: Reports: no symptoms Genitourinary: Reports: no symptoms Subjective Patient refused PICC, IV replaced, vitals stable, WBC coming down, creatinine elevated today. She is A paced, pacemaker c/d/i. Stable on vent settlings, no distress. GT clean and feeds running. LE doppler negative for DVT. CXR with RUL consolidation and effusion Objective Last 24 Hour Vital Signs Date Time Temp Pulse Resp B/P (MAP) Pulse Ox O2 Delivery O2 Flow Rate FiO2 03/20/18 09:28 79 12 40 03/20/18 08:00 Mechanical Ventilator 03/20/18 08:00 97.2 89 18 120/85 (97) 100 97.2 03/20/18 08:00 40 03/20/18 08:00 88 03/20/18 07:30 74 12 100 Mechanical Ventilator 40 03/20/18 07:24 75 12 40 03/20/18 07:24 40 03/20/18 07:24 76 12 99 Mechanical Ventilator 40 03/20/18 05:24 95 12 40 03/20/18 04:00 98.7 98 21 156/95 (115) 98 98.7 03/20/18 04:00 107 03/20/18 04:00 40 03/20/18 04:00 Mechanical Ventilator 03/20/18 03:10 89 12 40 03/20/18 00:48 72 12 40 03/20/18 00:00 97.7 89 20 125/79 (94) 98 97.7 03/20/18 00:00 Mechanical Ventilator 03/19/18 22:43 89 12 40 03/19/18 20:58 81 12 40 03/19/18 20:00 40 03/19/18 20:00 98.2 96 19 153/86 (108) 98 98.2 03/19/18 20:00 81 03/19/18 20:00 Mechanical Ventilator 03/19/18 19:10 76 12 100 Mechanical Ventilator 40 03/19/18 18:58 74 12 99 Mechanical Ventilator 15.0 40 03/19/18 18:58 40 03/19/18 18:57 74 12 40 03/19/18 16:37 Mechanical Ventilator 03/19/18 16:33 79 12 40 03/19/18 16:00 88 03/19/18 16:00 40 03/19/18 16:00 97.8 90 18 127/80 (96) 98 97.8 03/19/18 14:45 75 12 40 03/19/18 14:28 78 12 100 Mechanical Ventilator 40 03/19/18 14:15 40 03/19/18 14:15 80 12 99 Mechanical Ventilator 15.0 40 03/19/18 13:14 78 12 40 03/19/18 12:00 40 03/19/18 12:00 97.4 61 18 134/81 (98) 99 97.4 03/19/18 12:00 Mechanical Ventilator 03/19/18 12:00 72 03/19/18 11:03 72 12 40 General Appearance: no apparent distress, alert EENT: PERRL/EOMI, normal ENT inspection Neck: non-tender, normal alignment Rhythm: NSR Cardiovascular: normal peripheral pulses, normal rate Respiratory/Chest: chest wall non-tender, lungs clear Abdomen: normal bowel sounds, non tender Extremities: normal range of motion, non-tender Neurologic: bus attendant II-XII grossly normal Intake and Output 03/19/18 03/20/18 19:00 07:00 Intake Total 430 ml 610 ml Output Total 350 ml Balance 430 ml 260 ml Free Water 40 ml 100 ml IV Total 150 ml Tube Feeding 360 ml 360 ml Blood Product 30 ml Output Urine Total 350 ml # Bowel Movements 4 3 Laboratory Tests Test 03/20/18 05:06 White Blood Count 11.6 K/UL (4.8-10.8) H Red Blood Count 3.66 M/UL (4.20-5.40) L Hemoglobin 11.0 G/DL (12.0-16.0) L Hematocrit 33.6 % (37.0-47.0) L Mean Corpuscular Volume 92 FL (80-99) Mean Corpuscular Hemoglobin 30.0 PG (27.0-31.0) Mean Corpuscular Hemoglobin Concent 32.7 G/DL (32.0-36.0) Red Cell Distribution Width 11.3 % (11.6-14.8) L Platelet Count 207 K/UL (150-450) Mean Platelet Volume 9.1 FL (6.5-10.1) Neutrophils (%) (Auto) 81.1 % (45.0-75.0) H Lymphocytes (%) (Auto) 9.7 % (20.0-45.0) L Monocytes (%) (Auto) 5.5 % (1.0-10.0) Eosinophils (%) (Auto) 3.2 % (0.0-3.0) H Basophils (%) (Auto) 0.5 % (0.0-2.0) Sodium Level 134 MMOL/L (136-145) L Potassium Level 4.9 MMOL/L (3.5-5.1) Chloride Level 98 MMOL/L (98-107) Carbon Dioxide Level 26 MMOL/L (21-32) Anion Gap 10 mmol/L (5-15) Blood Urea Nitrogen 46 mg/dL (7-18) H Creatinine 1.4 MG/DL (0.55-1.30) H Estimat Glomerular Filtration Rate 47.5 mL/min (>60) Glucose Level 132 MG/DL (74-106) H Calcium Level 9.2 MG/DL (8.5-10.1) Phosphorus Level 7.5 MG/DL (2.5-4.9) H Magnesium Level 2.4 MG/DL (1.8-2.4) Total Bilirubin 0.4 MG/DL (0.2-1.0) Aspartate Amino Transf (AST/SGOT) 56 U/L (15-37) H Alanine Aminotransferase (ALT/SGPT) 105 U/L (12-78) H Alkaline Phosphatase 121 U/L (46-116) H Total Protein 7.6 G/DL (6.4-8.2) Albumin 2.6 G/DL (3.4-5.0) L Globulin 5.0 g/dL Albumin/Globulin Ratio 0.5 (1.0-2.7) L Random Vancomycin Level > 50.0 ug/mL Pratik Yan M.D. Mar 20, 2018 10:57
--- NOTE | 2018-03-20 11:35 | Infectious Diseases Prog Note ---
Assessment/Plan Assessment/Plan ASSESSMENT: 1. The patient is a 52-year-old female, who was admitted to this medical center with: 2. Respiratory distress possible pneumonia Sputum growing GNRx2, (the patient does not have much respiratory secretions, chest x-ray is unremarkable), however, needs to rule out probable underlying healthcare-associated pneumonia. - Sputum 03/17/18 - P.a. and Providencia and GPC 3. Rule out bacteremia. - Blood Cx 03/16/18 NGTD 4. Rule out UTI - UCx 03/17/18 NGTD - unremarkable UA). 5. Leukocytosis. - Improving 6. Afebrile. 7. No diarrhea to rule out C. difficile. PLAN: Continue Vancomycin #/ and Meropenem #2/10 for PNA and possible UTI - D/C 03/19 SP Ceftrixone #3 - f/u CBC. - Monitor cultures (blood, urine, sputum). - Monitor chest x-ray for possible development of infiltrate. Thank you, Dr. Hines, for allowing us to participate in the care of this patient. I will follow the patient with you during this hospitalization. Subjective Allergies: Coded Allergies: MORPHINE (Verified Allergy, Unknown, 03/15/18) Uncoded Allergies: Paper tape (Allergy, Unknown, 03/17/18) Pcg provide additional information Subjective Patient awake and alert On Vent 30% O2 No acute events Objective Vital Signs Last 24 Hour Vital Signs Date Time Temp Pulse Resp B/P (MAP) Pulse Ox O2 Delivery O2 Flow Rate FiO2 03/20/18 09:28 79 12 40 03/20/18 08:00 Mechanical Ventilator 03/20/18 08:00 97.2 89 18 120/85 (97) 100 97.2 03/20/18 08:00 40 03/20/18 08:00 88 03/20/18 07:30 74 12 100 Mechanical Ventilator 40 03/20/18 07:24 75 12 40 03/20/18 07:24 40 03/20/18 07:24 76 12 99 Mechanical Ventilator 40 03/20/18 05:24 95 12 40 03/20/18 04:00 98.7 98 21 156/95 (115) 98 98.7 03/20/18 04:00 107 03/20/18 04:00 40 03/20/18 04:00 Mechanical Ventilator 03/20/18 03:10 89 12 40 03/20/18 00:48 72 12 40 03/20/18 00:00 97.7 89 20 125/79 (94) 98 97.7 03/20/18 00:00 Mechanical Ventilator 03/19/18 22:43 89 12 40 03/19/18 20:58 81 12 40 03/19/18 20:00 40 03/19/18 20:00 98.2 96 19 153/86 (108) 98 98.2 03/19/18 20:00 81 03/19/18 20:00 Mechanical Ventilator 03/19/18 19:10 76 12 100 Mechanical Ventilator 40 03/19/18 18:58 74 12 99 Mechanical Ventilator 15.0 40 03/19/18 18:58 40 03/19/18 18:57 74 12 40 03/19/18 16:37 Mechanical Ventilator 03/19/18 16:33 79 12 40 03/19/18 16:00 88 03/19/18 16:00 40 03/19/18 16:00 97.8 90 18 127/80 (96) 98 97.8 03/19/18 14:45 75 12 40 03/19/18 14:28 78 12 100 Mechanical Ventilator 40 03/19/18 14:15 40 03/19/18 14:15 80 12 99 Mechanical Ventilator 15.0 40 03/19/18 13:14 78 12 40 03/19/18 12:00 40 03/19/18 12:00 97.4 61 18 134/81 (98) 99 97.4 03/19/18 12:00 Mechanical Ventilator 03/19/18 12:00 72 Height (Feet): 5 Height (Inches): 10.00 Weight (Pounds): 161 Objective GEN: NAD, Patient communicated with eyes/computer HEENT: NCAT, MMM, No pale conjunctivae. No icterus. Trached CHEST: CTAB, No Wheezing, Pacemaker in place (no erythema or breakdown of overlying skin) HEART: RRR, S1, S2. ABDOMEN: Soft. PEG tube in place. ( no surrounding erythema) EXTREMITIES: No cyanosis at this time. NEUROLOGIC: The patient opens eyes to voice SKIN: No rash. Laboratory Tests Test 03/20/18 05:06 White Blood Count 11.6 K/UL (4.8-10.8) H Red Blood Count 3.66 M/UL (4.20-5.40) L Hemoglobin 11.0 G/DL (12.0-16.0) L Hematocrit 33.6 % (37.0-47.0) L Mean Corpuscular Volume 92 FL (80-99) Mean Corpuscular Hemoglobin 30.0 PG (27.0-31.0) Mean Corpuscular Hemoglobin Concent 32.7 G/DL (32.0-36.0) Red Cell Distribution Width 11.3 % (11.6-14.8) L Platelet Count 207 K/UL (150-450) Mean Platelet Volume 9.1 FL (6.5-10.1) Neutrophils (%) (Auto) 81.1 % (45.0-75.0) H Lymphocytes (%) (Auto) 9.7 % (20.0-45.0) L Monocytes (%) (Auto) 5.5 % (1.0-10.0) Eosinophils (%) (Auto) 3.2 % (0.0-3.0) H Basophils (%) (Auto) 0.5 % (0.0-2.0) Sodium Level 134 MMOL/L (136-145) L Potassium Level 4.9 MMOL/L (3.5-5.1) Chloride Level 98 MMOL/L (98-107) Carbon Dioxide Level 26 MMOL/L (21-32) Anion Gap 10 mmol/L (5-15) Blood Urea Nitrogen 46 mg/dL (7-18) H Creatinine 1.4 MG/DL (0.55-1.30) H Estimat Glomerular Filtration Rate 47.5 mL/min (>60) Glucose Level 132 MG/DL (74-106) H Calcium Level 9.2 MG/DL (8.5-10.1) Phosphorus Level 7.5 MG/DL (2.5-4.9) H Magnesium Level 2.4 MG/DL (1.8-2.4) Total Bilirubin 0.4 MG/DL (0.2-1.0) Aspartate Amino Transf (AST/SGOT) 56 U/L (15-37) H Alanine Aminotransferase (ALT/SGPT) 105 U/L (12-78) H Alkaline Phosphatase 121 U/L (46-116) H Total Protein 7.6 G/DL (6.4-8.2) Albumin 2.6 G/DL (3.4-5.0) L Globulin 5.0 g/dL Albumin/Globulin Ratio 0.5 (1.0-2.7) L Random Vancomycin Level > 50.0 ug/mL Current Medications Medications (Trade) Dose Ordered Sig/Madisyn Route PRN Reason Start Time Stop Time Status Last Admin Dose Admin Acetaminophen (Tylenol) 650 mg Q4H PRN ORAL Prn Headache/Temp > 101 03/17/18 17:45 04/14/18 17:44 03/18/18 20:14 Albuterol/ Ipratropium (Albuterol/ Ipratropium) 3 ml EVERY 4 HOURS PRN HHN Shortness of Breath 03/15/18 17:45 03/20/18 17:44 Dextrose (Dextrose 50%) 25 ml STAT PRN IV Hypoglycemia 03/15/18 17:45 04/14/18 17:44 Dextrose (Dextrose 50%) 50 ml STAT PRN IV Hypoglycemia 03/15/18 18:00 04/14/18 17:59 Heparin Sodium (Porcine) (Heparin 5000 units/ml) 5,000 units EVERY 12 HOURS SUBQ 03/15/18 21:00 04/14/18 20:59 03/17/18 09:39 Ipratropium [place] (Atrovent) 500 mcg TIDRT HHN 03/15/18 19:00 03/20/18 18:59 03/20/18 07:21 Lorazepam (Ativan 2mg/ml 1ml) 2 mg EVERY 2 HOURS PRN IV For Anxiety 03/15/18 17:45 03/22/18 17:44 03/20/18 04:32 Meropenem 1 gm/ Sodium Chloride 55 ml @ 110 mls/hr Q8HR IVPB 03/19/18 14:00 03/24/18 13:59 03/20/18 06:24 Ondansetron HCl (Zofran) 4 mg Q6H PRN IVP Nausea & Vomiting 03/15/18 17:45 04/14/18 17:44 Pantoprazole (Protonix) 40 mg DAILY IV 03/16/18 09:00 04/15/18 08:59 03/20/18 08:48 Polyethylene Glycol (Miralax) 17 gm DAILYPRN PRN ORAL Constipation 03/15/18 17:45 04/14/18 17:44 Vancomycin HCl (Vanco rx to dose) 1 ea DAILY PRN MISC . 03/16/18 08:45 04/15/18 08:44 Pratik Day M.D. Mar 20, 2018 11:35
[2018-03-20 12:00] VITALS: BP 113/73
[2018-03-20 16:00] VITALS: BP 126/70
[2018-03-20 20:00] VITALS: BP 135/76
[2018-03-21] VITALS: BP 114/63
[2018-03-21 04:00] VITALS: BP 116/57
[2018-03-21] MEDS: Meropenem 1 GM in NS 55 ML IVPB SCH ×2 (05:42→18:09)
[2018-03-21 08:00] VITALS: BP_SYST 130; BP_SYST 165; BP_DIAS 73; BP_DIAS 92
[2018-03-21 08:14] LABS: EOSINOPHILS % (AUTO) 4.2 % (0.0-3.0); HEMATOCRIT 31.1 % (37.0-47.0); HEMOGLOBIN 10.4 G/DL (12.0-16.0); LYMPHOCYTES % (AUTO) 11.8 % (20.0-45.0); MEAN CORPUSCULAR VOLUME 91 FL (80-99); MONOCYTES % (AUTO) 7.6 % (1.0-10.0); NEUTROPHILS % (AUTO) 75.4 % (45.0-75.0); PLATELET COUNT 231 K/UL (150-450); RED BLOOD COUNT 3.42 M/UL (4.20-5.40); RED CELL DISTRIBUTION WIDTH 11.3 % (11.6-14.8); WHITE BLOOD COUNT 9.8 K/UL (4.8-10.8)
[2018-03-21 08:45] LABS: ALANINE AMINOTRANSFERASE 63 U/L (12-78); ALBUMIN 2.3 G/DL (3.4-5.0); ALBUMIN/GLOBULIN RATIO 0.5 (1.0-2.7); ALKALINE PHOSPHATASE 101 U/L (46-116); ANION GAP 9 mmol/L (5-15); ASPARTATE AMINO TRANSFERASE 27 U/L (15-37); BILIRUBIN,TOTAL 0.3 MG/DL (0.2-1.0); BLOOD UREA NITROGEN 50 mg/dL (7-18); CALCIUM 8.8 MG/DL (8.5-10.1); CARBON DIOXIDE 26 MMOL/L (21-32); CHLORIDE 100 MMOL/L (98-107); CREATININE 1.6 MG/DL (0.55-1.30); PHOSPHORUS 7.9 MG/DL (2.5-4.9); POTASSIUM 5.4 MMOL/L (3.5-5.1); SODIUM 135 MMOL/L (136-145)
[2018-03-21] MEDS: Pantoprazole Inj IV SCH (08:55)
[2018-03-21] MEDS: Heparin 5000 units/ml inj SUBQ SCH ×2 (08:56→20:03)
--- NOTE | 2018-03-21 09:15 | Infectious Diseases Prog Note ---
Assessment/Plan Assessment/Plan ASSESSMENT: 1. The patient is a 52-year-old female, who was admitted to this medical center with: 2. Respiratory distress possible pneumonia Sputum growing GNRx2, (the patient does not have much respiratory secretions, chest x-ray is unremarkable), however, needs to rule out probable underlying healthcare-associated pneumonia. - Sputum 03/17/18 - P.a. and Providencia and GPC 3. Rule out bacteremia. - Blood Cx 03/16/18 NGTD 4. Rule out UTI - UCx 03/17/18 NGTD - unremarkable UA). 5. Leukocytosis. - Improving 6. Afebrile. 7. No diarrhea to rule out C. difficile. 8. PAT - PLAN: Continue Meropenem #3/10 for PNA and possible UTI - D/C 03/21 Vancomycin #5 No MRSA found and increasing Cr - D/C 03/19 SP Ceftrixone #3 - f/u CBC. - Monitor cultures (blood, urine, sputum). - Monitor chest x-ray for possible development of infiltrate. Thank you, Dr. Hines, for allowing us to participate in the care of this patient. I will follow the patient with you during this hospitalization. Subjective Allergies: Coded Allergies: MORPHINE (Verified Allergy, Unknown, 03/15/18) Uncoded Allergies: Paper tape (Allergy, Unknown, 03/17/18) Pcg provide additional information Subjective Patient awake and alert On Vent 30% O2 No acute events overnight Afebrile Objective Vital Signs Last 24 Hour Vital Signs Date Time Temp Pulse Resp B/P (MAP) Pulse Ox O2 Delivery O2 Flow Rate FiO2 03/21/18 08:33 82 12 40 03/21/18 08:18 78 03/21/18 08:00 40 03/21/18 08:00 Mechanical Ventilator 03/21/18 08:00 97.4 83 20 130/73 (92) 100 97.4 03/21/18 07:09 74 12 40 03/21/18 05:00 70 12 40 03/21/18 04:00 67 03/21/18 04:00 Mechanical Ventilator 03/21/18 04:00 40 03/21/18 04:00 97.7 82 19 116/57 (76) 100 97.7 03/21/18 03:00 72 12 40 03/21/18 01:01 67 12 40 03/21/18 00:00 74 03/21/18 00:00 Mechanical Ventilator 03/21/18 00:00 98.2 78 18 114/63 (80) 100 98.2 03/20/18 23:58 98.2 03/20/18 23:15 80 12 40 03/20/18 21:22 83 12 40 03/20/18 20:00 98.1 74 16 135/76 (95) 100 98.1 03/20/18 20:00 Mechanical Ventilator 03/20/18 20:00 40 03/20/18 19:27 84 12 100 Mechanical Ventilator 40 03/20/18 19:24 40 03/20/18 19:22 89 12 100 Mechanical Ventilator 40 03/20/18 19:20 85 12 40 03/20/18 17:24 79 12 40 03/20/18 16:00 Mechanical Ventilator 03/20/18 16:00 97.2 84 14 126/70 (88) 99 97.2 03/20/18 16:00 40 03/20/18 16:00 79 03/20/18 14:48 77 12 40 03/20/18 12:32 77 12 100 Mechanical Ventilator 40 03/20/18 12:30 76 12 40 03/20/18 12:23 75 12 99 Mechanical Ventilator 40 03/20/18 12:23 40 03/20/18 12:02 78 03/20/18 12:00 40 03/20/18 12:00 Mechanical Ventilator 03/20/18 12:00 97.6 82 16 113/73 (86) 100 97.6 03/20/18 11:12 78 12 40 03/20/18 09:28 79 12 40 Height (Feet): 5 Height (Inches): 10.00 Weight (Pounds): 160 Objective GEN: NAD, Patient communicates with eyes/computer HEENT: NCAT, MMM, EOMI, Trached CHEST: CTAB, No Wheezing, Pacemaker in place (no erythema or breakdown of overlying skin) HEART: RRR, S1, S2. ABDOMEN: Soft. PEG tube in place. ( no surrounding erythema) EXTREMITIES: No cyanosis at this time. NEUROLOGIC: The patient opens eyes to voice SKIN: No rash. Laboratory Tests Test 03/21/18 08:00 White Blood Count 9.8 K/UL (4.8-10.8) Red Blood Count 3.42 M/UL (4.20-5.40) L Hemoglobin 10.4 G/DL (12.0-16.0) L Hematocrit 31.1 % (37.0-47.0) L Mean Corpuscular Volume 91 FL (80-99) Mean Corpuscular Hemoglobin 30.4 PG (27.0-31.0) Mean Corpuscular Hemoglobin Concent 33.4 G/DL (32.0-36.0) Red Cell Distribution Width 11.3 % (11.6-14.8) L Platelet Count 231 K/UL (150-450) Mean Platelet Volume 8.9 FL (6.5-10.1) Neutrophils (%) (Auto) 75.4 % (45.0-75.0) H Lymphocytes (%) (Auto) 11.8 % (20.0-45.0) L Monocytes (%) (Auto) 7.6 % (1.0-10.0) Eosinophils (%) (Auto) 4.2 % (0.0-3.0) H Basophils (%) (Auto) 1.0 % (0.0-2.0) Erythrocyte Sedimentation Rate Pending Sodium Level 135 MMOL/L (136-145) L Potassium Level 5.4 MMOL/L (3.5-5.1) H Chloride Level 100 MMOL/L (98-107) Carbon Dioxide Level 26 MMOL/L (21-32) Anion Gap 9 mmol/L (5-15) Blood Urea Nitrogen 50 mg/dL (7-18) H Creatinine 1.6 MG/DL (0.55-1.30) H Estimat Glomerular Filtration Rate 40.7 mL/min (>60) Glucose Level 121 MG/DL (74-106) H Calcium Level 8.8 MG/DL (8.5-10.1) Phosphorus Level 7.9 MG/DL (2.5-4.9) H Magnesium Level 2.3 MG/DL (1.8-2.4) Total Bilirubin 0.3 MG/DL (0.2-1.0) Aspartate Amino Transf (AST/SGOT) 27 U/L (15-37) Alanine Aminotransferase (ALT/SGPT) 63 U/L (12-78) Alkaline Phosphatase 101 U/L (46-116) C-Reactive Protein, Quantitative 12.0 mg/dL (0.00-0.90) H Total Protein 7.1 G/DL (6.4-8.2) Albumin 2.3 G/DL (3.4-5.0) L Globulin 4.8 g/dL Albumin/Globulin Ratio 0.5 (1.0-2.7) L Random Vancomycin Level > 50.0 ug/mL Current Medications Medications (Trade) Dose Ordered Sig/Madisyn Route PRN Reason Start Time Stop Time Status Last Admin Dose Admin Acetaminophen (Tylenol) 650 mg Q4H PRN ORAL Prn Headache/Temp > 101 03/17/18 17:45 04/14/18 17:44 03/20/18 22:59 Dextrose (Dextrose 50%) 25 ml STAT PRN IV Hypoglycemia 03/15/18 17:45 04/14/18 17:44 Dextrose (Dextrose 50%) 50 ml STAT PRN IV Hypoglycemia 03/15/18 18:00 04/14/18 17:59 Heparin Sodium (Porcine) (Heparin 5000 units/ml) 5,000 units EVERY 12 HOURS SUBQ 03/15/18 21:00 04/14/18 20:59 03/17/18 09:39 Lorazepam (Ativan 2mg/ml 1ml) 2 mg EVERY 2 HOURS PRN IV For Anxiety 03/15/18 17:45 03/22/18 17:44 03/20/18 22:33 Meropenem 1 gm/ Sodium Chloride 55 ml @ 110 mls/hr Q12H IVPB 03/21/18 18:00 03/26/18 17:59 Ondansetron HCl (Zofran) 4 mg Q6H PRN IVP Nausea & Vomiting 03/15/18 17:45 04/14/18 17:44 Pantoprazole (Protonix) 40 mg DAILY IV 03/16/18 09:00 04/15/18 08:59 03/21/18 08:55 Polyethylene Glycol (Miralax) 17 gm DAILYPRN PRN ORAL Constipation 03/15/18 17:45 04/14/18 17:44 Vancomycin HCl (Vanco rx to dose) 1 ea DAILY PRN MISC . 03/16/18 08:45 04/15/18 08:44 Pratik Day M.D. Mar 21, 2018 09:14
[2018-03-21] MEDS: LORazepam Inj 2mg/ml 1ml IV PRN ×3 (09:56→16:12)
--- NOTE | 2018-03-21 11:50 | Cardiology Progress Note ---
Assessment/Plan Status: stable Assessment/Plan Assessment: (1) Acute on chronic respiratory failure (2) Right lower lobe pulmonary infiltrate (3) Sepsis (4) ALS (amyotrophic lateral sclerosis) (5) Pacemaker (6) Feeding by G-tube Plan: Treatment for hyperkalemia nephrology consult for PAT Continue antibiotics for PNA Possible right thoracentesis if no improvement Trach care, pulmonary toilet PPM working appropriately Echocardiogram reviewed - normal LV function Gi Ppx DVT ppx Physical therapy Wound care Subjective Cardiovascular: Reports: no symptoms Respiratory: Reports: no symptoms Gastrointestinal/Abdominal: Reports: no symptoms Genitourinary: Reports: no symptoms Subjective No acute events, WBC normal, K elevated. Creatinine rising. She is A paced, pacemaker c/d/i. Stable on vent settlings, no distress. GT clean and feeds running. LE doppler negative for DVT. CXR with RUL consolidation and effusion Objective Last 24 Hour Vital Signs Date Time Temp Pulse Resp B/P (MAP) Pulse Ox O2 Delivery O2 Flow Rate FiO2 03/21/18 10:56 97.4 03/21/18 10:46 82 12 40 03/21/18 09:57 97.4 03/21/18 08:33 82 12 40 03/21/18 08:18 78 03/21/18 08:00 40 03/21/18 08:00 Mechanical Ventilator 03/21/18 08:00 97.4 83 20 130/73 (92) 100 97.4 03/21/18 07:09 74 12 40 03/21/18 05:00 70 12 40 03/21/18 04:00 67 03/21/18 04:00 Mechanical Ventilator 03/21/18 04:00 40 03/21/18 04:00 97.7 82 19 116/57 (76) 100 97.7 03/21/18 03:00 72 12 40 03/21/18 01:01 67 12 40 03/21/18 00:00 74 03/21/18 00:00 Mechanical Ventilator 03/21/18 00:00 98.2 78 18 114/63 (80) 100 98.2 03/20/18 23:15 80 12 40 03/20/18 21:22 83 12 40 03/20/18 20:00 98.1 74 16 135/76 (95) 100 98.1 03/20/18 20:00 Mechanical Ventilator 03/20/18 20:00 40 03/20/18 19:27 84 12 100 Mechanical Ventilator 40 03/20/18 19:24 40 03/20/18 19:22 89 12 100 Mechanical Ventilator 40 03/20/18 19:20 85 12 40 03/20/18 17:24 79 12 40 03/20/18 16:00 Mechanical Ventilator 03/20/18 16:00 97.2 84 14 126/70 (88) 99 97.2 03/20/18 16:00 40 03/20/18 16:00 79 03/20/18 14:48 77 12 40 03/20/18 12:32 77 12 100 Mechanical Ventilator 40 03/20/18 12:30 76 12 40 03/20/18 12:23 75 12 99 Mechanical Ventilator 40 03/20/18 12:23 40 03/20/18 12:02 78 03/20/18 12:00 40 03/20/18 12:00 Mechanical Ventilator 03/20/18 12:00 97.6 82 16 113/73 (86) 100 97.6 General Appearance: no apparent distress EENT: PERRL/EOMI, normal ENT inspection Neck: non-tender, normal alignment, supple, normal inspection, no JVD Rhythm: NSR Cardiovascular: normal peripheral pulses, normal rate Respiratory/Chest: chest wall non-tender, crackles/rales Abdomen: normal bowel sounds, non tender Extremities: normal range of motion Neurologic: director of instrumental music II-XII grossly normal Intake and Output 03/20/18 03/21/18 19:00 07:00 Intake Total 590 ml 470 ml Balance 590 ml 470 ml Free Water 150 ml 140 ml IV Total 110 ml Tube Feeding 330 ml 330 ml Laboratory Tests Test 03/21/18 08:00 White Blood Count 9.8 K/UL (4.8-10.8) Red Blood Count 3.42 M/UL (4.20-5.40) L Hemoglobin 10.4 G/DL (12.0-16.0) L Hematocrit 31.1 % (37.0-47.0) L Mean Corpuscular Volume 91 FL (80-99) Mean Corpuscular Hemoglobin 30.4 PG (27.0-31.0) Mean Corpuscular Hemoglobin Concent 33.4 G/DL (32.0-36.0) Red Cell Distribution Width 11.3 % (11.6-14.8) L Platelet Count 231 K/UL (150-450) Mean Platelet Volume 8.9 FL (6.5-10.1) Neutrophils (%) (Auto) 75.4 % (45.0-75.0) H Lymphocytes (%) (Auto) 11.8 % (20.0-45.0) L Monocytes (%) (Auto) 7.6 % (1.0-10.0) Eosinophils (%) (Auto) 4.2 % (0.0-3.0) H Basophils (%) (Auto) 1.0 % (0.0-2.0) Erythrocyte Sedimentation Rate 115 MM/HR (0-30) H Sodium Level 135 MMOL/L (136-145) L Potassium Level 5.4 MMOL/L (3.5-5.1) H Chloride Level 100 MMOL/L (98-107) Carbon Dioxide Level 26 MMOL/L (21-32) Anion Gap 9 mmol/L (5-15) Blood Urea Nitrogen 50 mg/dL (7-18) H Creatinine 1.6 MG/DL (0.55-1.30) H Estimat Glomerular Filtration Rate 40.7 mL/min (>60) Glucose Level 121 MG/DL (74-106) H Calcium Level 8.8 MG/DL (8.5-10.1) Phosphorus Level 7.9 MG/DL (2.5-4.9) H Magnesium Level 2.3 MG/DL (1.8-2.4) Total Bilirubin 0.3 MG/DL (0.2-1.0) Aspartate Amino Transf (AST/SGOT) 27 U/L (15-37) Alanine Aminotransferase (ALT/SGPT) 63 U/L (12-78) Alkaline Phosphatase 101 U/L (46-116) C-Reactive Protein, Quantitative 12.0 mg/dL (0.00-0.90) H Total Protein 7.1 G/DL (6.4-8.2) Albumin 2.3 G/DL (3.4-5.0) L Globulin 4.8 g/dL Albumin/Globulin Ratio 0.5 (1.0-2.7) L Random Vancomycin Level > 50.0 ug/mL Pratik Yan M.D. Mar 21, 2018 11:50
[2018-03-21 12:00] VITALS: BP 117/75
--- NOTE | 2018-03-21 15:54 | Pulmonolgy Critical Care Note ---
Critical Care - Asmt/Plan Problems: (1) Acute on chronic respiratory failure (2) Right lower lobe pulmonary infiltrate (3) Sepsis (4) ALS (amyotrophic lateral sclerosis) (5) Pacemaker (6) Feeding by G-tube (7) ATN (acute tubular necrosis) Respiratory: monitor respiratory rate, adjust FIO2, CXR Cardiac: continue to monitor HR/BP Renal: F/U I&O Infectious Disease: check cultures, continue antibiotics Gastrointestinal: continue feedings/current rate Endocrine: monitor blood sugar, check TSH, check HgA1C Hematologic: monitor H/H, transfuse if hgb<8.5 Neurologic: PRN Ativan, keep patient comfortable Affect: PRN ativan Prophylaxis: Protonix, Heparin Notes Reviewed: sr. manager corporate communications, renal Discussed with: nurses, consultants, supportive employment case managerverification manager - Objective Last 24 Hour Vital Signs Date Time Temp Pulse Resp B/P (MAP) Pulse Ox O2 Delivery O2 Flow Rate FiO2 03/21/18 14:42 66 12 40 03/21/18 12:30 74 12 40 03/21/18 12:00 76 03/21/18 12:00 97.6 72 12 117/75 (89) 100 97.6 03/21/18 10:56 97.4 03/21/18 10:46 82 12 40 03/21/18 09:57 97.4 03/21/18 08:33 82 12 40 03/21/18 08:18 78 03/21/18 08:00 40 03/21/18 08:00 Mechanical Ventilator 03/21/18 08:00 97.4 83 20 130/73 (92) 100 97.4 03/21/18 07:09 74 12 40 03/21/18 05:00 70 12 40 03/21/18 04:00 67 03/21/18 04:00 Mechanical Ventilator 03/21/18 04:00 40 03/21/18 04:00 97.7 82 19 116/57 (76) 100 97.7 03/21/18 03:00 72 12 40 03/21/18 01:01 67 12 40 03/21/18 00:00 74 03/21/18 00:00 Mechanical Ventilator 03/21/18 00:00 98.2 78 18 114/63 (80) 100 98.2 03/20/18 23:15 80 12 40 8/8/18 21:22 83 12 40 03/20/18 20:00 98.1 74 16 135/76 (95) 100 98.1 03/20/18 20:00 Mechanical Ventilator 03/20/18 20:00 40 03/20/18 19:27 84 12 100 Mechanical Ventilator 40 03/20/18 19:24 40 03/20/18 19:22 89 12 100 Mechanical Ventilator 40 03/20/18 19:20 85 12 40 03/20/18 17:24 79 12 40 03/20/18 16:00 Mechanical Ventilator 03/20/18 16:00 97.2 84 14 126/70 (88) 99 97.2 03/20/18 16:00 40 03/20/18 16:00 79 Status: awake Condition: critical Neck: full ROM Lungs: chest wall tender Heart: regular Abdomen: soft, active bowel sounds Extremities: no C/C/E Critical Care - Subjective ROS Limited/Unobtainable: Yes Condition: critical FI02: 40 Vent Support Breath Rate: 12 Vent Support Mode: AC Vent Tidal Volume: 450 Sputum Amount: Small PEEP: 5.0 PIP: 34 Tube Feeding Amount: 30 I&O: Intake and Output 03/20/18 03/21/18 19:00 07:00 Intake Total 590 ml 470 ml Balance 590 ml 470 ml Free Water 150 ml 140 ml IV Total 110 ml Tube Feeding 330 ml 330 ml Anastasiia Hines MD Mar 21, 2018 15:54
[2018-03-21 16:00] VITALS: BP 116/68
--- NOTE | 2018-03-21 18:05 | Consultation ---
Consult Note Consult Note asked to eval for rising serum Cr 52 year old female with a history of advanced ALS, Chronic Vent/trach/ PEG brought in by EMS from a halfway facility with episodes of desaturation. Per report, the patient's O2 saturation was dropping intermittently to 70. Initial evaluation in ER showed high WBC and possible sepsis. She is admitted to [facility] for further evaluation. She recently developed a third degree heart block and had 2 episodes of cardiac arrest that required CPR and defibrillation. The patient underwent permanent pacemaker placement. seen in room 242 [facility] Examined- data reviewed Assessment/Plan acute renal failure- likely due to toxic vanco level of 50 ! Cr rising , 1.6 today K high - 5.4 Na down 135 Anemia Other conditions - Acute on chronic respiratory failure - Right lower lobe pulmonary infiltrate - Sepsis - ALS (amyotrophic lateral sclerosis) - Pacemaker - Feeding by G-tube Hydrate- monitor Vanco levels monitor lytes anemia work up Pan Covington MD Mar 21, 2018 18:05
[2018-03-21 18:33] LABS: CREATINE KINASE 117 U/L (26-308)
[2018-03-21] MEDS: Ipratropium 0.02% Inh Soln 2.5ml UD HHN SCH (19:27)
[2018-03-21 19:51] LABS: APPEARANCE,URINE CLEAR; BILIRUBIN, URINE NEGATIVE (NEGATIVE); COLOR,URINE PALE YELLOW; GLUCOSE, URINE (UA) NEGATIVE (NEGATIVE); KETONES,URINE NEGATIVE (NEGATIVE); LEUKOCYTE ESTERASE ,URINE 3+ (NEGATIVE); NITRITE,URINE NEGATIVE (NEGATIVE); PH,URINE 5 (4.5-8.0); PROTEIN,URINE 2+ (NEGATIVE); UROBILINOGEN,URINE NORMAL MG/DL (0.0-1.0)
[2018-03-21 20:00] VITALS: BP 130/81
[2018-03-22] VITALS: BP 143/82
[2018-03-22 04:00] VITALS: BP 135/72
[2018-03-22] MEDS: LORazepam Inj 2mg/ml 1ml IV PRN ×2 (04:52→09:48)
[2018-03-22] MEDS: Meropenem 1 GM in NS 55 ML IVPB SCH ×2 (05:00→18:10)
[2018-03-22 05:35] LABS: EOSINOPHILS % (AUTO) 4.5 % (0.0-3.0); HEMATOCRIT 29.5 % (37.0-47.0); HEMOGLOBIN 9.6 G/DL (12.0-16.0); LYMPHOCYTES % (AUTO) 12.3 % (20.0-45.0); MEAN CORPUSCULAR VOLUME 93 FL (80-99); MONOCYTES % (AUTO) 7.6 % (1.0-10.0); NEUTROPHILS % (AUTO) 74.5 % (45.0-75.0); PLATELET COUNT 220 K/UL (150-450); RED BLOOD COUNT 3.16 M/UL (4.20-5.40); RED CELL DISTRIBUTION WIDTH 11.7 % (11.6-14.8); WHITE BLOOD COUNT 10.5 K/UL (4.8-10.8)
[2018-03-22 06:16] LABS: % IRON SATURATION 14 % (15-50); CREATINE KINASE 119 U/L (26-308); GAMMA GLUTAMYL TRANSPEPTIDASE 101 U/L (5-85); IRON 20 ug/dL (50-175); TOTAL IRON BINDING CAPACITY 140 ug/dL (250-450)
[2018-03-22 06:17] LABS: ALANINE AMINOTRANSFERASE 41 U/L (12-78); ALBUMIN 2.5 G/DL (3.4-5.0); ALBUMIN/GLOBULIN RATIO 0.6 (1.0-2.7); ALKALINE PHOSPHATASE 84 U/L (46-116); ANION GAP 9 mmol/L (5-15); ASPARTATE AMINO TRANSFERASE 19 U/L (15-37); BILIRUBIN,TOTAL 0.3 MG/DL (0.2-1.0); BLOOD UREA NITROGEN 44 mg/dL (7-18); CARBON DIOXIDE 24 MMOL/L (21-32); CHLORIDE 108 MMOL/L (98-107); CHOLESTEROL 100 MG/DL (< 200); CREATININE 1.4 MG/DL (0.55-1.30); FERRITIN 456 NG/ML (8-388); HDL CHOLESTEROL 35 MG/DL (40-60); PHOSPHORUS 6.8 MG/DL (2.5-4.9); POTASSIUM 4.3 MMOL/L (3.5-5.1); SODIUM 141 MMOL/L (136-145); TRIGLYCERIDES 87 MG/DL (30-150)
--- NOTE | 2018-03-22 07:30 | Infectious Diseases Prog Note ---
Assessment/Plan Assessment/Plan ASSESSMENT: 1. The patient is a 52-year-old female, who was admitted to this medical center with: 2. Respiratory distress possible pneumonia Sputum growing GNRx2, (the patient does not have much respiratory secretions, chest x-ray is unremarkable), however, needs to rule out probable underlying healthcare-associated pneumonia. - Sputum 03/17/18 - P.a. and [facility] and [facility] 3. Rule out bacteremia. - Blood Cx 03/16/18 NGTD 4. Rule out UTI - UCx 03/17/18 NGTD - unremarkable UA). 5. Leukocytosis. - Improving 6. Afebrile. 7. No diarrhea to rule out C. difficile. 8. PAT - PLAN: Continue Meropenem #4/10 for PNA and possible UTI - D/C 03/21 Vancomycin #5 No MRSA found and increasing Cr - D/C 03/19 SP Ceftrixone #3 - f/u CBC. - Monitor cultures (blood, urine, sputum). - Monitor chest x-ray for possible development of infiltrate. Thank you, Dr. Hines, for allowing us to participate in the care of this patient. I will follow the patient with you during this hospitalization. Subjective Allergies: Coded Allergies: MORPHINE (Verified Allergy, Unknown, 03/15/18) Uncoded Allergies: Paper tape (Allergy, Unknown, 03/17/18) Pcg provide additional information Subjective Patient awake and alert On Vent 30% O2 Objective Vital Signs Last 24 Hour Vital Signs Date Time Temp Pulse Resp B/P (MAP) Pulse Ox O2 Delivery O2 Flow Rate FiO2 03/22/18 06:55 118 12 40 03/22/18 04:47 119 14 40 03/22/18 04:00 80 03/22/18 04:00 Mechanical Ventilator 03/22/18 04:00 98.1 79 18 135/72 (93) 100 98.1 03/22/18 04:00 40 03/22/18 02:42 82 12 40 03/22/18 01:08 83 12 40 03/22/18 00:00 97.8 82 18 143/82 (102) 100 97.8 03/22/18 00:00 94 03/22/18 00:00 Mechanical Ventilator 03/22/18 00:00 40 03/21/18 23:29 88 12 40 03/21/18 21:06 79 12 40 8/9/18 20:00 40 03/21/18 20:00 76 03/21/18 20:00 97.6 86 16 130/81 (97) 100 97.6 03/21/18 20:00 Mechanical Ventilator 03/21/18 19:27 76 12 40 03/21/18 16:51 72 12 40 03/21/18 16:00 74 03/21/18 16:00 97.7 72 13 116/68 (84) 100 97.7 03/21/18 16:00 40 03/21/18 16:00 Mechanical Ventilator 03/21/18 14:42 66 12 40 03/21/18 12:30 74 12 40 03/21/18 12:00 Mechanical Ventilator 03/21/18 12:00 40 03/21/18 12:00 76 03/21/18 12:00 97.6 72 12 117/75 (89) 100 97.6 03/21/18 10:56 97.4 03/21/18 10:46 82 12 40 03/21/18 09:57 97.4 03/21/18 08:33 82 12 40 03/21/18 08:18 78 03/21/18 08:00 40 03/21/18 08:00 Mechanical Ventilator 03/21/18 08:00 97.4 83 20 130/73 (92) 100 97.4 Height (Feet): 5 Height (Inches): 10.00 Weight (Pounds): 160 Objective GEN: NAD, Patient interactive on computer HEENT: NCAT, MMM, EOMI, Trached CHEST: CTAB, No Wheezing, Pacemaker in place (no erythema or breakdown of overlying skin) HEART: RRR, S1, S2. No MRG ABDOMEN: Soft. PEG tube in place. ( no surrounding erythema) NEUROLOGIC: The patient opens eyes to voice SKIN: No rash. Laboratory Tests Test 03/21/18 08:00 03/21/18 19:15 03/22/18 04:39 White Blood Count 9.8 K/UL (4.8-10.8) 10.5 K/UL (4.8-10.8) Red Blood Count 3.42 M/UL (4.20-5.40) L 3.16 M/UL (4.20-5.40) L Hemoglobin 10.4 G/DL (12.0-16.0) L 9.6 G/DL (12.0-16.0) L Hematocrit 31.1 % (37.0-47.0) L 29.5 % (37.0-47.0) L Mean Corpuscular Volume 91 FL (80-99) 93 FL (80-99) Mean Corpuscular Hemoglobin 30.4 PG (27.0-31.0) 30.5 PG (27.0-31.0) Mean Corpuscular Hemoglobin Concent 33.4 G/DL (32.0-36.0) 32.7 G/DL (32.0-36.0) Red Cell Distribution Width 11.3 % (11.6-14.8) L 11.7 % (11.6-14.8) Platelet Count 231 K/UL (150-450) 220 K/UL (150-450) Mean Platelet Volume 8.9 FL (6.5-10.1) 8.1 FL (6.5-10.1) Neutrophils (%) (Auto) 75.4 % (45.0-75.0) H 74.5 % (45.0-75.0) Lymphocytes (%) (Auto) 11.8 % (20.0-45.0) L 12.3 % (20.0-45.0) L Monocytes (%) (Auto) 7.6 % (1.0-10.0) 7.6 % (1.0-10.0) Eosinophils (%) (Auto) 4.2 % (0.0-3.0) H 4.5 % (0.0-3.0) H Basophils (%) (Auto) 1.0 % (0.0-2.0) 1.0 % (0.0-2.0) Erythrocyte Sedimentation Rate 115 MM/HR (0-30) H Sodium Level 135 MMOL/L (136-145) L 141 MMOL/L (136-145) Potassium Level 5.4 MMOL/L (3.5-5.1) H 4.3 MMOL/L (3.5-5.1) Chloride Level 100 MMOL/L (98-107) 108 MMOL/L (98-107) H Carbon Dioxide Level 26 MMOL/L (21-32) 24 MMOL/L (21-32) Anion Gap 9 mmol/L (5-15) 9 mmol/L (5-15) Blood Urea Nitrogen 50 mg/dL (7-18) H 44 mg/dL (7-18) H Creatinine 1.6 MG/DL (0.55-1.30) H 1.4 MG/DL (0.55-1.30) H Estimat Glomerular Filtration Rate 40.7 mL/min (>60) 47.5 mL/min (>60) Glucose Level 121 MG/DL (74-106) H 100 MG/DL (74-106) Uric Acid 7.0 MG/DL (2.6-7.2) 5.9 MG/DL (2.6-7.2) Calcium Level 8.8 MG/DL (8.5-10.1) 8.0 MG/DL (8.5-10.1) L Phosphorus Level 7.9 MG/DL (2.5-4.9) H 6.8 MG/DL (2.5-4.9) H Magnesium Level 2.3 MG/DL (1.8-2.4) 2.0 MG/DL (1.8-2.4) Total Bilirubin 0.3 MG/DL (0.2-1.0) 0.3 MG/DL (0.2-1.0) Aspartate Amino Transf (AST/SGOT) 27 U/L (15-37) 19 U/L (15-37) Alanine Aminotransferase (ALT/SGPT) 63 U/L (12-78) 41 U/L (12-78) Alkaline Phosphatase 101 U/L (46-116) 84 U/L (46-116) Total Creatine Kinase 117 U/L (26-308) 119 U/L (26-308) C-Reactive Protein, Quantitative 12.0 mg/dL (0.00-0.90) H Total Protein 7.1 G/DL (6.4-8.2) 6.5 G/DL (6.4-8.2) Albumin 2.3 G/DL (3.4-5.0) L 2.5 G/DL (3.4-5.0) L Globulin 4.8 g/dL 4.0 g/dL Albumin/Globulin Ratio 0.5 (1.0-2.7) L 0.6 (1.0-2.7) L Random Vancomycin Level > 50.0 ug/mL 53.2 ug/mL Urine Color Pale yellow Urine Appearance Clear Urine pH 5 (4.5-8.0) Urine Specific [place] 1.005 (1.005-1.035) Urine Protein 2+ (NEGATIVE) H Urine Glucose (UA) Negative (NEGATIVE) Urine Ketones Negative (NEGATIVE) Urine Occult Blood 3+ (NEGATIVE) H Urine Nitrite Negative (NEGATIVE) Urine Bilirubin Negative (NEGATIVE) Urine Urobilinogen Normal MG/DL (0.0-1.0) Urine Leukocyte Esterase 3+ (NEGATIVE) H Urine RBC 2-4 /HPF (0 - 2) H Urine WBC 0-2 /HPF (0 - 2) Urine Squamous Epithelial Cells Moderate /LPF (NONE/OCC) H Urine Bacteria Few /HPF (NONE) Urine Yeast Moderate /HPF (NONE) H Urine Eosinophils None seen (NONE SEEN) Urine Random Sodium 37 mmol/L (20-110) Hemoglobin A1c 6.5 % (4.3-6.0) H Iron Level 20 ug/dL (50-175) L Total Iron Binding Capacity 140 ug/dL (250-450) L Percent Iron Saturation 14 % (15-50) L Unsaturated Iron Binding 120 ug/dL (112-346) Ferritin 456 NG/ML (8-388) H Gamma Glutamyl Transpeptidase 101 U/L (5-85) H Pro-B-Type Natriuretic Peptide 322 pg/mL (0-125) H Triglycerides Level 87 MG/DL (30-150) Cholesterol Level 100 MG/DL (< 200) LDL Cholesterol 61 mg/dL (<100) HDL Cholesterol 35 MG/DL (40-60) L Cholesterol/HDL Ratio 2.9 (3.3-4.4) L Vitamin B12 Level 1268 PG/ML (193-986) H Folate 49.4 NG/ML (8.6-58.9) Thyroid Stimulating Hormone (TSH) 1.312 uiU/mL (0.358-3.740) Current Medications Medications (Trade) Dose Ordered Sig/Madisyn Route PRN Reason Start Time Stop Time Status Last Admin Dose Admin Acetaminophen (Tylenol) 650 mg Q4H PRN ORAL Prn Headache/Temp > 101 03/17/18 17:45 04/14/18 17:44 03/21/18 09:57 Dextrose (Dextrose 50%) 25 ml STAT PRN IV Hypoglycemia 03/15/18 17:45 04/14/18 17:44 Dextrose (Dextrose 50%) 50 ml STAT PRN IV Hypoglycemia 03/15/18 18:00 04/14/18 17:59 Heparin Sodium (Porcine) (Heparin 5000 units/ml) 5,000 units EVERY 12 HOURS SUBQ 03/15/18 21:00 04/14/18 20:59 03/17/18 09:39 Ipratropium [place] (Atrovent) 500 mcg TIDRT HHN 03/21/18 19:00 03/26/18 18:59 03/21/18 19:27 Lorazepam (Ativan 2mg/ml 1ml) 2 mg EVERY 2 HOURS PRN IV For Anxiety 03/15/18 17:45 03/22/18 17:44 03/22/18 04:52 Meropenem 1 gm/ Sodium Chloride 55 ml @ 110 mls/hr Q12H IVPB 03/21/18 18:00 03/26/18 17:59 03/22/18 05:00 Ondansetron HCl (Zofran) 4 mg Q6H PRN IVP Nausea & Vomiting 03/15/18 17:45 04/14/18 17:44 Pantoprazole (Protonix) 40 mg DAILY IV 03/16/18 09:00 04/15/18 08:59 03/21/18 08:55 Polyethylene Glycol (Miralax) 17 gm DAILYPRN PRN ORAL Constipation 03/15/18 17:45 04/14/18 17:44 Sodium Chloride 1,000 ml @ 150 mls/hr Q6H40M IV 03/21/18 15:30 04/20/18 15:29 03/22/18 04:52 Pratik Day M.D. Mar 22, 2018 07:30
[2018-03-22] MEDS: Ipratropium 0.02% Inh Soln 2.5ml UD HHN SCH ×3 (07:35→19:12)
--- NOTE | 2018-03-22 07:57 | Nephrology Progress Note ---
Assessment/Plan Problem List: (1) ATN (acute tubular necrosis) (2) Pacemaker (3) ALS (amyotrophic lateral sclerosis) (4) Feeding by G-tube (5) Acute on chronic respiratory failure Assessment acute renal failure- likely due to toxic vanco level of 50 ! Cr lower K wnl Anemia Other conditions - Acute on chronic respiratory failure - Right lower lobe pulmonary infiltrate - Sepsis - ALS (amyotrophic lateral sclerosis) - Pacemaker - Feeding by G-tube Plan monitor Vanco levels and Cr continue hydrate Subjective ROS Limited/Unobtainable: Yes Objective Objective Last 24 Hour Vital Signs Date Time Temp Pulse Resp B/P (MAP) Pulse Ox O2 Delivery O2 Flow Rate FiO2 03/22/18 07:35 93 12 100 Mechanical Ventilator 40 03/22/18 06:55 118 12 40 03/22/18 04:47 119 14 40 03/22/18 04:00 80 03/22/18 04:00 Mechanical Ventilator 03/22/18 04:00 98.1 79 18 135/72 (93) 100 98.1 03/22/18 04:00 40 03/22/18 02:42 82 12 40 03/22/18 01:08 83 12 40 03/22/18 00:00 97.8 82 18 143/82 (102) 100 97.8 03/22/18 00:00 94 03/22/18 00:00 Mechanical Ventilator 03/22/18 00:00 40 03/21/18 23:29 88 12 40 03/21/18 21:06 79 12 40 03/21/18 20:00 40 03/21/18 20:00 76 03/21/18 20:00 97.6 86 16 130/81 (97) 100 97.6 03/21/18 20:00 Mechanical Ventilator 03/21/18 19:27 76 12 40 03/21/18 16:51 72 12 40 03/21/18 16:00 74 03/21/18 16:00 97.7 72 13 116/68 (84) 100 97.7 03/21/18 16:00 40 03/21/18 16:00 Mechanical Ventilator 03/21/18 14:42 66 12 40 03/21/18 12:30 74 12 40 03/21/18 12:00 Mechanical Ventilator 03/21/18 12:00 40 03/21/18 12:00 76 03/21/18 12:00 97.6 72 12 117/75 (89) 100 97.6 03/21/18 10:56 97.4 03/21/18 10:46 82 12 40 03/21/18 09:57 97.4 03/21/18 08:33 82 12 40 03/21/18 08:18 78 03/21/18 08:00 40 03/21/18 08:00 Mechanical Ventilator 03/21/18 08:00 97.4 83 20 130/73 (92) 100 97.4 Intake and Output 03/21/18 03/22/18 19:00 07:00 Intake Total 887.5 ml 2164 ml Balance 887.5 ml 2164 ml Free Water 100 ml 100 ml IV Total 442.5 ml 1765 ml Tube Feeding 345 ml 299 ml # Voids 3 2 # Bowel Movements 1 Laboratory Tests 03/21/18 08:00: White Blood Count 9.8, Red Blood Count 3.42L, Hemoglobin 10.4L, Hematocrit 31.1L , Mean Corpuscular Volume 91, Mean Corpuscular Hemoglobin 30.4, Mean Corpuscular Hemoglobin Concent 33.4, Red Cell Distribution Width 11.3L, Platelet Count 231, Mean Platelet Volume 8.9, Neutrophils (%) (Auto) 75.4H, Lymphocytes (%) (Auto) 11.8L, Monocytes (%) (Auto) 7.6, Eosinophils (%) (Auto) 4.2H, Basophils (%) (Auto) 1.0, Erythrocyte Sedimentation Rate 115H, Sodium Level 135L, Potassium Level 5.4H, Chloride Level 100, Carbon Dioxide Level 26, Anion Gap 9, Blood Urea Nitrogen 50H, Creatinine 1.6H, Estimat Glomerular Filtration Rate 40.7, Glucose Level 121H, Uric Acid 7.0, Calcium Level 8.8, Phosphorus Level 7.9H, Magnesium Level 2.3, Total Bilirubin 0.3, Aspartate Amino Transf (AST/SGOT) 27, Alanine Aminotransferase (ALT/SGPT) 63, Alkaline Phosphatase 101, Total Creatine Kinase 117, C-Reactive Protein, Quantitative 12.0H, Total Protein 7.1, Albumin 2.3L, Globulin 4.8, Albumin/Globulin Ratio 0.5L, Random Vancomycin Level > 50.0 03/21/18 19:15: Urine Color Pale yellow, Urine Appearance Clear, Urine pH 5, Urine Specific [place] 1.005, Urine Protein 2+H, Urine Glucose (UA) Negative, Urine Ketones Negative, Urine Occult Blood 3+H, Urine Nitrite Negative, Urine Bilirubin Negative, Urine Urobilinogen Normal, Urine Leukocyte Esterase 3+H, Urine RBC 2- 4H, Urine WBC 0-2, Urine Squamous Epithelial Cells ModerateH, Urine Bacteria Few , Urine Yeast ModerateH, Urine Eosinophils None seen, Urine Random Sodium 37 03/22/18 04:39: White Blood Count 10.5, Red Blood Count 3.16L, Hemoglobin 9.6L, Hematocrit 29.5L , Mean Corpuscular Volume 93, Mean Corpuscular Hemoglobin 30.5, Mean Corpuscular Hemoglobin Concent 32.7, Red Cell Distribution Width 11.7, Platelet Count 220, Mean Platelet Volume 8.1, Neutrophils (%) (Auto) 74.5, Lymphocytes (% ) (Auto) 12.3L, Monocytes (%) (Auto) 7.6, Eosinophils (%) (Auto) 4.5H, Basophils (%) (Auto) 1.0, Sodium Level 141, Potassium Level 4.3, Chloride Level 108H, Carbon Dioxide Level 24, Anion Gap 9, Blood Urea Nitrogen 44H, Creatinine 1.4H, Estimat Glomerular Filtration Rate 47.5, Glucose Level 100, Uric Acid 5.9 , Calcium Level 8.0L, Phosphorus Level 6.8H, Magnesium Level 2.0, Total Bilirubin 0.3, Aspartate Amino Transf (AST/SGOT) 19, Alanine Aminotransferase ( ALT/SGPT) 41, Alkaline Phosphatase 84, Total Creatine Kinase 119, Total Protein 6.5, Albumin 2.5L, Globulin 4.0, Albumin/Globulin Ratio 0.6L, Random Vancomycin Level 53.2, Hemoglobin A1c 6.5H, Iron Level 20L, Total Iron Binding Capacity 140L, Percent Iron Saturation 14L, Unsaturated Iron Binding 120, Ferritin 456H, Gamma Glutamyl Transpeptidase 101H, Pro-B-Type Natriuretic Peptide 322H, Triglycerides Level 87, Cholesterol Level 100, LDL Cholesterol 61, HDL Cholesterol 35L, Cholesterol/HDL Ratio 2.9L, Vitamin B12 Level 1268H, Folate 49.4, Thyroid Stimulating Hormone (TSH) 1.312 Height (Feet): 5 Height (Inches): 10.00 Weight (Pounds): 160 General Appearance: no apparent distress Respiratory/Chest: decreased breath sounds Objective no change Pan Covington MD Mar 22, 2018 07:57
[2018-03-22 08:00] VITALS: BP 126/71
[2018-03-22] MEDS: Heparin 5000 units/ml inj SUBQ SCH ×2 (09:00→20:55)
[2018-03-22] MEDS: Pantoprazole Inj IV SCH (09:21)
--- NOTE | 2018-03-22 10:36 | Pulmonolgy Critical Care Note ---
Critical Care - Asmt/Plan Problems: (1) Acute on chronic respiratory failure (2) Right lower lobe pulmonary infiltrate (3) Sepsis (4) ALS (amyotrophic lateral sclerosis) (5) Pacemaker (6) Feeding by G-tube (7) ATN (acute tubular necrosis) Respiratory: monitor respiratory rate, adjust FIO2, CXR Cardiac: continue to monitor HR/BP Renal: F/U I&O Infectious Disease: check cultures Gastrointestinal: continue feedings/current rate, hold feedings Endocrine: check TSH Hematologic: monitor H/H, transfuse if hgb<8.5 Neurologic: PRN Ativan, PRN Morphine, keep patient comfortable Affect: PRN ativan Prophylaxis: Heparin 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, 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 Discussed with: nurses, 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, 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 - Objective Last 24 Hour Vital Signs Date Time Temp Pulse Resp B/P (MAP) Pulse Ox O2 Delivery O2 Flow Rate FiO2 03/22/18 09:48 97.2 03/22/18 09:02 85 12 40 03/22/18 08:00 Mechanical Ventilator 03/22/18 08:00 97.2 95 12 126/71 (89) 100 97.2 03/22/18 08:00 40 03/22/18 08:00 88 03/22/18 07:45 102 12 98 Mechanical Ventilator 40 03/22/18 07:35 93 12 100 Mechanical Ventilator 40 03/22/18 06:55 118 12 40 03/22/18 04:47 119 14 40 03/22/18 04:00 80 03/22/18 04:00 Mechanical Ventilator 03/22/18 04:00 98.1 79 18 135/72 (93) 100 98.1 03/22/18 04:00 40 03/22/18 02:42 82 12 40 03/22/18 01:08 83 12 40 03/22/18 00:00 97.8 82 18 143/82 (102) 100 97.8 03/22/18 00:00 94 03/22/18 00:00 Mechanical Ventilator 03/22/18 00:00 40 03/21/18 23:29 88 12 40 03/21/18 21:06 79 12 40 03/21/18 20:00 40 03/21/18 20:00 76 03/21/18 20:00 97.6 86 16 130/81 (97) 100 97.6 03/21/18 20:00 Mechanical Ventilator 03/21/18 19:27 76 12 40 03/21/18 16:51 72 12 40 03/21/18 16:00 74 03/21/18 16:00 97.7 72 13 116/68 (84) 100 97.7 03/21/18 16:00 40 03/21/18 16:00 Mechanical Ventilator 03/21/18 14:42 66 12 40 03/21/18 12:30 74 12 40 03/21/18 12:00 Mechanical Ventilator 03/21/18 12:00 40 03/21/18 12:00 76 03/21/18 12:00 97.6 72 12 117/75 (89) 100 97.6 03/21/18 10:56 97.4 03/21/18 10:46 82 12 40 Status: awake Condition: critical HEENT: atraumatic Lungs: clear Heart: HR/BP stable Abdomen: soft, non-tender, feeding tube Extremities: no C/C/E, edema Critical Care - Subjective ROS Limited/Unobtainable: Yes Condition: critical EKG Rhythm: Sinus Rhythm FI02: 40 Vent Support Breath Rate: 12 Vent Support Mode: AC Vent Tidal Volume: 450 Sputum Amount: Small PEEP: 5.0 PIP: 26 Tube Feeding Amount: 37 I&O: Intake and Output 03/21/18 03/22/18 18:59 06:59 Intake Total 850.0 ml 2044.5 ml Balance 850.0 ml 2044.5 ml Free Water 100 ml 100 ml IV Total 390.0 ml 1667.5 ml Tube Feeding 360 ml 277 ml # Voids 3 2 # Bowel Movements 1 Labs: Laboratory Tests Test 03/21/18 19:15 03/22/18 04:39 Urine Color Pale yellow Urine Appearance Clear Urine pH 5 (4.5-8.0) Urine Specific [place] 1.005 (1.005-1.035) Urine Protein 2+ (NEGATIVE) H Urine Glucose (UA) Negative (NEGATIVE) Urine Ketones Negative (NEGATIVE) Urine Occult Blood 3+ (NEGATIVE) H Urine Nitrite Negative (NEGATIVE) Urine Bilirubin Negative (NEGATIVE) Urine Urobilinogen Normal MG/DL (0.0-1.0) Urine Leukocyte Esterase 3+ (NEGATIVE) H Urine RBC 2-4 /HPF (0 - 2) H Urine WBC 0-2 /HPF (0 - 2) Urine Squamous Epithelial Cells Moderate /LPF (NONE/OCC) H Urine Bacteria Few /HPF (NONE) Urine Yeast Moderate /HPF (NONE) H Urine Eosinophils None seen (NONE SEEN) Urine Random Sodium 37 mmol/L (20-110) White Blood Count 10.5 K/UL (4.8-10.8) Red Blood Count 3.16 M/UL (4.20-5.40) L Hemoglobin 9.6 G/DL (12.0-16.0) L Hematocrit 29.5 % (37.0-47.0) L Mean Corpuscular Volume 93 FL (80-99) Mean Corpuscular Hemoglobin 30.5 PG (27.0-31.0) Mean Corpuscular Hemoglobin Concent 32.7 G/DL (32.0-36.0) Red Cell Distribution Width 11.7 % (11.6-14.8) Platelet Count 220 K/UL (150-450) Mean Platelet Volume 8.1 FL (6.5-10.1) Neutrophils (%) (Auto) 74.5 % (45.0-75.0) Lymphocytes (%) (Auto) 12.3 % (20.0-45.0) L Monocytes (%) (Auto) 7.6 % (1.0-10.0) Eosinophils (%) (Auto) 4.5 % (0.0-3.0) H Basophils (%) (Auto) 1.0 % (0.0-2.0) Sodium Level 141 MMOL/L (136-145) Potassium Level 4.3 MMOL/L (3.5-5.1) Chloride Level 108 MMOL/L (98-107) H Carbon Dioxide Level 24 MMOL/L (21-32) Anion Gap 9 mmol/L (5-15) Blood Urea Nitrogen 44 mg/dL (7-18) H Creatinine 1.4 MG/DL (0.55-1.30) H Estimat Glomerular Filtration Rate 47.5 mL/min (>60) Glucose Level 100 MG/DL (74-106) Hemoglobin A1c 6.5 % (4.3-6.0) H Uric Acid 5.9 MG/DL (2.6-7.2) Calcium Level 8.0 MG/DL (8.5-10.1) L Phosphorus Level 6.8 MG/DL (2.5-4.9) H Magnesium Level 2.0 MG/DL (1.8-2.4) Iron Level 20 ug/dL (50-175) L Total Iron Binding Capacity 140 ug/dL (250-450) L Percent Iron Saturation 14 % (15-50) L Unsaturated Iron Binding 120 ug/dL (112-346) Ferritin 456 NG/ML (8-388) H Total Bilirubin 0.3 MG/DL (0.2-1.0) Gamma Glutamyl Transpeptidase 101 U/L (5-85) H Aspartate Amino Transf (AST/SGOT) 19 U/L (15-37) Alanine Aminotransferase (ALT/SGPT) 41 U/L (12-78) Alkaline Phosphatase 84 U/L (46-116) Total Creatine Kinase 119 U/L (26-308) Pro-B-Type Natriuretic Peptide 322 pg/mL (0-125) H Total Protein 6.5 G/DL (6.4-8.2) Albumin 2.5 G/DL (3.4-5.0) L Globulin 4.0 g/dL Albumin/Globulin Ratio 0.6 (1.0-2.7) L Triglycerides Level 87 MG/DL (30-150) Cholesterol Level 100 MG/DL (< 200) LDL Cholesterol 61 mg/dL (<100) HDL Cholesterol 35 MG/DL (40-60) L Cholesterol/HDL Ratio 2.9 (3.3-4.4) L Vitamin B12 Level 1268 PG/ML (193-986) H Folate 49.4 NG/ML (8.6-58.9) Thyroid Stimulating Hormone (TSH) 1.312 uiU/mL (0.358-3.740) Random Vancomycin Level 53.2 ug/mL Anastasiia Hines MD Mar 22, 2018 10:36
--- NOTE | 2018-03-22 11:31 | Cardiology Progress Note ---
Assessment/Plan Status: stable Assessment/Plan Assessment: (1) Acute on chronic respiratory failure (2) Right lower lobe pulmonary infiltrate (3) Sepsis (4) ALS (amyotrophic lateral sclerosis) (5) Pacemaker (6) Feeding by G-tube Plan: IV fluid hydration Continue antibiotics for PNA/UTI Possible right thoracentesis if no improvement Trach care, pulmonary toilet PPM working appropriately Echocardiogram reviewed - normal LV function Gi Ppx DVT ppx Physical therapy Wound care Subjective Cardiovascular: Reports: no symptoms Respiratory: Reports: no symptoms Gastrointestinal/Abdominal: Reports: no symptoms Genitourinary: Reports: no symptoms Subjective No acute events, WBC normal, Creatinine coming down with hydration. She is A paced, pacemaker c/d/i. Stable on vent settlings, no distress. GT clean and feeds running. LE doppler negative for DVT. CXR with RUL consolidation and effusion Objective Last 24 Hour Vital Signs Date Time Temp Pulse Resp B/P (MAP) Pulse Ox O2 Delivery O2 Flow Rate FiO2 03/22/18 11:00 97.2 03/22/18 09:48 97.2 03/22/18 09:02 85 12 40 03/22/18 08:00 Mechanical Ventilator 03/22/18 08:00 97.2 95 12 126/71 (89) 100 97.2 03/22/18 08:00 40 03/22/18 08:00 88 03/22/18 07:45 102 12 98 Mechanical Ventilator 40 03/22/18 07:35 93 12 100 Mechanical Ventilator 40 03/22/18 06:55 118 12 40 03/22/18 04:47 119 14 40 03/22/18 04:00 80 03/22/18 04:00 Mechanical Ventilator 03/22/18 04:00 98.1 79 18 135/72 (93) 100 98.1 03/22/18 04:00 40 03/22/18 02:42 82 12 40 03/22/18 01:08 83 12 40 03/22/18 00:00 97.8 82 18 143/82 (102) 100 97.8 03/22/18 00:00 94 03/22/18 00:00 Mechanical Ventilator 03/22/18 00:00 40 03/21/18 23:29 88 12 40 03/21/18 21:06 79 12 40 03/21/18 20:00 40 03/21/18 20:00 76 03/21/18 20:00 97.6 86 16 130/81 (97) 100 97.6 03/21/18 20:00 Mechanical Ventilator 03/21/18 19:27 76 12 40 03/21/18 16:51 72 12 40 03/21/18 16:00 74 03/21/18 16:00 97.7 72 13 116/68 (84) 100 97.7 03/21/18 16:00 40 03/21/18 16:00 Mechanical Ventilator 03/21/18 14:42 66 12 40 03/21/18 12:30 74 12 40 03/21/18 12:00 Mechanical Ventilator 03/21/18 12:00 40 03/21/18 12:00 76 03/21/18 12:00 97.6 72 12 117/75 (89) 100 97.6 General Appearance: no apparent distress, alert EENT: PERRL/EOMI, normal ENT inspection, TMs normal Neck: non-tender, normal alignment Rhythm: other Cardiovascular: normal peripheral pulses, regularly irregular Respiratory/Chest: chest wall non-tender, lungs clear Abdomen: normal bowel sounds, non tender Extremities: normal range of motion, non-tender 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 II-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 grossly normal Intake and Output 03/21/18 03/22/18 19:00 07:00 Intake Total 887.5 ml 2164 ml Balance 887.5 ml 2164 ml Free Water 100 ml 100 ml IV Total 442.5 ml 1765 ml Tube Feeding 345 ml 299 ml # Voids 3 2 # Bowel Movements 1 Laboratory Tests Test 03/21/18 19:15 03/22/18 04:39 Urine Color Pale yellow Urine Appearance Clear Urine pH 5 (4.5-8.0) Urine Specific [place] 1.005 (1.005-1.035) Urine Protein 2+ (NEGATIVE) H Urine Glucose (UA) Negative (NEGATIVE) Urine Ketones Negative (NEGATIVE) Urine Occult Blood 3+ (NEGATIVE) H Urine Nitrite Negative (NEGATIVE) Urine Bilirubin Negative (NEGATIVE) Urine Urobilinogen Normal MG/DL (0.0-1.0) Urine Leukocyte Esterase 3+ (NEGATIVE) H Urine RBC 2-4 /HPF (0 - 2) H Urine WBC 0-2 /HPF (0 - 2) Urine Squamous Epithelial Cells Moderate /LPF (NONE/OCC) H Urine Bacteria Few /HPF (NONE) Urine Yeast Moderate /HPF (NONE) H Urine Eosinophils None seen (NONE SEEN) Urine Random Sodium 37 mmol/L (20-110) White Blood Count 10.5 K/UL (4.8-10.8) Red Blood Count 3.16 M/UL (4.20-5.40) L Hemoglobin 9.6 G/DL (12.0-16.0) L Hematocrit 29.5 % (37.0-47.0) L Mean Corpuscular Volume 93 FL (80-99) Mean Corpuscular Hemoglobin 30.5 PG (27.0-31.0) Mean Corpuscular Hemoglobin Concent 32.7 G/DL (32.0-36.0) Red Cell Distribution Width 11.7 % (11.6-14.8) Platelet Count 220 K/UL (150-450) Mean Platelet Volume 8.1 FL (6.5-10.1) Neutrophils (%) (Auto) 74.5 % (45.0-75.0) Lymphocytes (%) (Auto) 12.3 % (20.0-45.0) L Monocytes (%) (Auto) 7.6 % (1.0-10.0) Eosinophils (%) (Auto) 4.5 % (0.0-3.0) H Basophils (%) (Auto) 1.0 % (0.0-2.0) Sodium Level 141 MMOL/L (136-145) Potassium Level 4.3 MMOL/L (3.5-5.1) Chloride Level 108 MMOL/L (98-107) H Carbon Dioxide Level 24 MMOL/L (21-32) Anion Gap 9 mmol/L (5-15) Blood Urea Nitrogen 44 mg/dL (7-18) H Creatinine 1.4 MG/DL (0.55-1.30) H Estimat Glomerular Filtration Rate 47.5 mL/min (>60) Glucose Level 100 MG/DL (74-106) Hemoglobin A1c 6.5 % (4.3-6.0) H Uric Acid 5.9 MG/DL (2.6-7.2) Calcium Level 8.0 MG/DL (8.5-10.1) L Phosphorus Level 6.8 MG/DL (2.5-4.9) H Magnesium Level 2.0 MG/DL (1.8-2.4) Iron Level 20 ug/dL (50-175) L Total Iron Binding Capacity 140 ug/dL (250-450) L Percent Iron Saturation 14 % (15-50) L Unsaturated Iron Binding 120 ug/dL (112-346) Ferritin 456 NG/ML (8-388) H Total Bilirubin 0.3 MG/DL (0.2-1.0) Gamma Glutamyl Transpeptidase 101 U/L (5-85) H Aspartate Amino Transf (AST/SGOT) 19 U/L (15-37) Alanine Aminotransferase (ALT/SGPT) 41 U/L (12-78) Alkaline Phosphatase 84 U/L (46-116) Total Creatine Kinase 119 U/L (26-308) Pro-B-Type Natriuretic Peptide 322 pg/mL (0-125) H Total Protein 6.5 G/DL (6.4-8.2) Albumin 2.5 G/DL (3.4-5.0) L Globulin 4.0 g/dL Albumin/Globulin Ratio 0.6 (1.0-2.7) L Triglycerides Level 87 MG/DL (30-150) Cholesterol Level 100 MG/DL (< 200) LDL Cholesterol 61 mg/dL (<100) HDL Cholesterol 35 MG/DL (40-60) L Cholesterol/HDL Ratio 2.9 (3.3-4.4) L Vitamin B12 Level 1268 PG/ML (193-986) H Folate 49.4 NG/ML (8.6-58.9) Thyroid Stimulating Hormone (TSH) 1.312 uiU/mL (0.358-3.740) Random Vancomycin Level 53.2 ug/mL Microbiology Date/Time Source Procedure Growth Status 03/21/18 19:15 Urine,Clean Catch Urine Culture - Preliminary NO GROWTH Resulted Pratik Yan M.D. Mar 22, 2018 11:31
--- NOTE | 2018-03-22 11:37 | Consultation ---
History of Present Illness General Date patient seen: Mar 22, 2018 Chief Complaint: Dyspnea/Respdistress Present Illness HPI 52-year-old female with multiple medical problems, who was brought from senior living facility to this medical center for hypoxemia and respiratory distress. the pt has severe anxiety. 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 The pt stated that she was not sleeping at night. she was reluctant to take Allergies: Coded Allergies: MORPHINE (Verified Allergy, Unknown, 03/15/18) Uncoded Allergies: Paper tape (Allergy, Unknown, 03/17/18) Pcg provide additional information Medication History Scheduled Ascorbic Acid* (Vitamin C*), 500 MG GT DAILY, (Reported) Multivitamin With Minerals (Multivitamins With Minerals*), 1 TAB GT DAILY, ( Reported) Scheduled PRN Acetaminophen* (Acetaminophen 325MG Tablet*), 325 MG ORAL Q4H PRN for For Pain, (Reported) Tramadol Hcl* (Ultram*), 50 MG ORAL Q6H PRN for For Pain, (Reported) Miscellaneous Medications Cranberry (Cranberry), 425 MG GT, (Reported) Ferrous Gluconate (Iron), 330 MG GT, (Reported) Nut.tx.gluc.intoler,Lac-Fr,Soy (Glucerna 1.2 Alo), 1,500 ML PO, (Reported) Patient History Healthcare decision maker PRISCILLA ZEPEDA Resuscitation status Full Code Advanced Directive on File No Physical Exam Last 24 Hour Vital Signs Date Time Temp Pulse Resp B/P (MAP) Pulse Ox O2 Delivery O2 Flow Rate FiO2 03/22/18 11:00 97.2 03/22/18 09:48 97.2 03/22/18 09:02 85 12 40 03/22/18 08:00 Mechanical Ventilator 03/22/18 08:00 97.2 95 12 126/71 (89) 100 97.2 03/22/18 08:00 40 03/22/18 08:00 88 03/22/18 07:45 102 12 98 Mechanical Ventilator 40 03/22/18 07:35 93 12 100 Mechanical Ventilator 40 03/22/18 06:55 118 12 40 03/22/18 04:47 119 14 40 03/22/18 04:00 80 03/22/18 04:00 Mechanical Ventilator 03/22/18 04:00 98.1 79 18 135/72 (93) 100 98.1 03/22/18 04:00 40 03/22/18 02:42 82 12 40 03/22/18 01:08 83 12 40 03/22/18 00:00 97.8 82 18 143/82 (102) 100 97.8 03/22/18 00:00 94 03/22/18 00:00 Mechanical Ventilator 03/22/18 00:00 40 03/21/18 23:29 88 12 40 03/21/18 21:06 79 12 40 03/21/18 20:00 40 03/21/18 20:00 76 03/21/18 20:00 97.6 86 16 130/81 (97) 100 97.6 03/21/18 20:00 Mechanical Ventilator 03/21/18 19:27 76 12 40 03/21/18 16:51 72 12 40 03/21/18 16:00 74 03/21/18 16:00 97.7 72 13 116/68 (84) 100 97.7 03/21/18 16:00 40 03/21/18 16:00 Mechanical Ventilator 03/21/18 14:42 66 12 40 03/21/18 12:30 74 12 40 03/21/18 12:00 Mechanical Ventilator 03/21/18 12:00 40 03/21/18 12:00 76 03/21/18 12:00 97.6 72 12 117/75 (89) 100 97.6 Intake and Output 03/21/18 03/22/18 19:00 07:00 Intake Total 887.5 ml 2164 ml Balance 887.5 ml 2164 ml Free Water 100 ml 100 ml IV Total 442.5 ml 1765 ml Tube Feeding 345 ml 299 ml # Voids 3 2 # Bowel Movements 1 Laboratory Tests Test 03/21/18 19:15 03/22/18 04:39 Urine Color Pale yellow Urine Appearance Clear Urine pH 5 (4.5-8.0) Urine Specific [place] 1.005 (1.005-1.035) Urine Protein 2+ (NEGATIVE) H Urine Glucose (UA) Negative (NEGATIVE) Urine Ketones Negative (NEGATIVE) Urine Occult Blood 3+ (NEGATIVE) H Urine Nitrite Negative (NEGATIVE) Urine Bilirubin Negative (NEGATIVE) Urine Urobilinogen Normal MG/DL (0.0-1.0) Urine Leukocyte Esterase 3+ (NEGATIVE) H Urine RBC 2-4 /HPF (0 - 2) H Urine WBC 0-2 /HPF (0 - 2) Urine Squamous Epithelial Cells Moderate /LPF (NONE/OCC) H Urine Bacteria Few /HPF (NONE) Urine Yeast Moderate /HPF (NONE) H Urine Eosinophils None seen (NONE SEEN) Urine Random Sodium 37 mmol/L (20-110) White Blood Count 10.5 K/UL (4.8-10.8) Red Blood Count 3.16 M/UL (4.20-5.40) L Hemoglobin 9.6 G/DL (12.0-16.0) L Hematocrit 29.5 % (37.0-47.0) L Mean Corpuscular Volume 93 FL (80-99) Mean Corpuscular Hemoglobin 30.5 PG (27.0-31.0) Mean Corpuscular Hemoglobin Concent 32.7 G/DL (32.0-36.0) Red Cell Distribution Width 11.7 % (11.6-14.8) Platelet Count 220 K/UL (150-450) Mean Platelet Volume 8.1 FL (6.5-10.1) Neutrophils (%) (Auto) 74.5 % (45.0-75.0) Lymphocytes (%) (Auto) 12.3 % (20.0-45.0) L Monocytes (%) (Auto) 7.6 % (1.0-10.0) Eosinophils (%) (Auto) 4.5 % (0.0-3.0) H Basophils (%) (Auto) 1.0 % (0.0-2.0) Sodium Level 141 MMOL/L (136-145) Potassium Level 4.3 MMOL/L (3.5-5.1) Chloride Level 108 MMOL/L (98-107) H Carbon Dioxide Level 24 MMOL/L (21-32) Anion Gap 9 mmol/L (5-15) Blood Urea Nitrogen 44 mg/dL (7-18) H Creatinine 1.4 MG/DL (0.55-1.30) H Estimat Glomerular Filtration Rate 47.5 mL/min (>60) Glucose Level 100 MG/DL (74-106) Hemoglobin A1c 6.5 % (4.3-6.0) H Uric Acid 5.9 MG/DL (2.6-7.2) Calcium Level 8.0 MG/DL (8.5-10.1) L Phosphorus Level 6.8 MG/DL (2.5-4.9) H Magnesium Level 2.0 MG/DL (1.8-2.4) Iron Level 20 ug/dL (50-175) L Total Iron Binding Capacity 140 ug/dL (250-450) L Percent Iron Saturation 14 % (15-50) L Unsaturated Iron Binding 120 ug/dL (112-346) Ferritin 456 NG/ML (8-388) H Total Bilirubin 0.3 MG/DL (0.2-1.0) Gamma Glutamyl Transpeptidase 101 U/L (5-85) H Aspartate Amino Transf (AST/SGOT) 19 U/L (15-37) Alanine Aminotransferase (ALT/SGPT) 41 U/L (12-78) Alkaline Phosphatase 84 U/L (46-116) Total Creatine Kinase 119 U/L (26-308) Pro-B-Type Natriuretic Peptide 322 pg/mL (0-125) H Total Protein 6.5 G/DL (6.4-8.2) Albumin 2.5 G/DL (3.4-5.0) L Globulin 4.0 g/dL Albumin/Globulin Ratio 0.6 (1.0-2.7) L Triglycerides Level 87 MG/DL (30-150) Cholesterol Level 100 MG/DL (< 200) LDL Cholesterol 61 mg/dL (<100) HDL Cholesterol 35 MG/DL (40-60) L Cholesterol/HDL Ratio 2.9 (3.3-4.4) L Vitamin B12 Level 1268 PG/ML (193-986) H Folate 49.4 NG/ML (8.6-58.9) Thyroid Stimulating Hormone (TSH) 1.312 uiU/mL (0.358-3.740) Random Vancomycin Level 53.2 ug/mL Microbiology Date/Time Source Procedure Growth Status 03/21/18 19:15 Urine,Clean Catch Urine Culture - Preliminary NO GROWTH Resulted Height (Feet): 5 Height (Inches): 10.00 Weight (Pounds): 160 Medications Current Medications Medications (Trade) Dose Ordered Sig/Madisyn Route PRN Reason Start Time Stop Time Status Last Admin Dose Admin Acetaminophen (Tylenol) 650 mg Q4H PRN GT Prn Headache/Temp > 101 8/10/18 13:48 04/21/18 13:47 Dextrose (Dextrose 50%) 25 ml STAT PRN IV Hypoglycemia 03/15/18 17:45 04/14/18 17:44 Dextrose (Dextrose 50%) 50 ml STAT PRN IV Hypoglycemia 03/15/18 18:00 04/14/18 17:59 Heparin Sodium (Porcine) (Heparin 5000 units/ml) 5,000 units EVERY 12 HOURS SUBQ 03/15/18 21:00 04/14/18 20:59 03/17/18 09:39 Ipratropium [place] (Atrovent) 500 mcg TIDRT HHN 03/21/18 19:00 03/26/18 18:59 03/22/18 07:35 Lorazepam (Ativan 2mg/ml 1ml) 2 mg EVERY 2 HOURS PRN IV For Anxiety 03/15/18 17:45 03/22/18 17:44 03/22/18 09:48 Meropenem 1 gm/ Sodium Chloride 55 ml @ 110 mls/hr Q12H IVPB 03/21/18 18:00 03/26/18 17:59 03/22/18 05:00 Ondansetron HCl (Zofran) 4 mg Q6H PRN IVP Nausea & Vomiting 03/15/18 17:45 04/14/18 17:44 Pantoprazole (Protonix) 40 mg DAILY IV 03/16/18 09:00 04/15/18 08:59 03/22/18 09:21 Polyethylene Glycol (Miralax) 17 gm DAILYPRN PRN ORAL Constipation 03/15/18 17:45 04/14/18 17:44 Sodium Chloride 1,000 ml @ 150 mls/hr Q6H40M IV 03/21/18 15:30 04/20/18 15:29 03/22/18 04:52 Jazzmine Solis MD Mar 22, 2018 11:37
[2018-03-22] MEDS ORDERED: LORazepam 0.5mg tab ORAL PRN (11:45)
[2018-03-22 12:00] VITALS: BP 125/73
[2018-03-22] MEDS ORDERED: LORazepam 0.5mg tab ORAL SCH (12:00)
--- NOTE | 2018-03-22 15:35 | Cardiology Report ---
APPROVED REPORT EXAM: Two-dimensional and M-mode echocardiogram with Doppler and color Doppler. INDICATION LV FUNCTION M-Mode DIMENSIONS IVSd1.5 (0.7-1.1cm)Left Atrium (MM)2.3 (1.6-4.0cm) LVDd3.6 (3.5-5.6cm)Aortic Root2.3 (2.0-3.7cm) PWd1.1 (0.7-1.1cm)Aortic Cusp Exc.1.7 (1.5-2.0cm) IVSs1.4 cm LVDs2.4 (2.5-4.0cm) PWs1.5 cm . Left ventricular ejection fraction estimated to be 55-60 %. No evidence of left ventricular hypertrophy . No evidence of pericardial effusion. All other cardiac chamber sizes are within normal limits. Focal aortic valve sclerosis with adequate cusp excursion. Thickened mitral valve leaflets with normal excursion. Mitral annulus and aortic root calcification. Pulmonic valve not well visualized. Normal tricuspid valve structure. IVC at size 1.7size without physiologic collapse, suggestive of increased RA pressure. A color flow and spectral Doppler study was performed and revealed: No aortic regurgitation. Trace mitral regurgitation. Normal left ventricular diastolic function . Trace tricuspid regurgitation. Tricuspid systolic velocities suggests peak right ventricular systolic pressure of 20 mmHg.
--- NOTE | 2018-03-22 15:58 | Diagnostic Imaging Report ---
Indication: Abnormal renal function tests Technique: Grayscale and duplex images of the kidneys, retroperitoneum, and bladder were obtained. Comparison: none Findings: Right kidney measures 11.3 cm in length. Left kidney measures 11.8 cm in length. Both kidneys demonstrate normal echogenicity. There is mild right hydronephrosis which does not change after voiding. A small cyst is seen in the left kidney. Normal inferior vena cava. Bladder is distended, measuring 318 mL volume prevoid. Postvoid, calculated bladder volume is 210 mL. Bilateral ureteral jets are demonstrated Impression: Mild right hydronephrosis, etiology not definitely demonstrated but may be related to lack of bladder emptying Large postvoid bladder residual, 2 10 mL Small left renal cyst.
[2018-03-22 16:00] VITALS: BP 121/74
[2018-03-22] MEDS ORDERED: LORazepam 1mg tab ORAL PRN (16:45)
--- NOTE | 2018-03-22 16:51 | Diagnostic Imaging Report ---
APPROVED REPORT CPT Code: 67744 Present Symptoms Comments: BILATERAL ARMS PAIN. BILATERAL UPPER EXTREMITY: Imaging reveals patency of the internal jugular, subclavian, axillary and brachial veins. The basilic veins are also patent. Doppler indicates normal spontaneous flow within these venous segments, bilaterally. Bilateral cephalic veins not visualized.
[2018-03-22] MEDS ORDERED: LORazepam 1mg tab ORAL SCH (18:00)
[2018-03-22 18:08] LABS: APPEARANCE,URINE CLEAR; BILIRUBIN, URINE NEGATIVE (NEGATIVE); COLOR,URINE PALE YELLOW; GLUCOSE, URINE (UA) NEGATIVE (NEGATIVE); KETONES,URINE NEGATIVE (NEGATIVE); LEUKOCYTE ESTERASE ,URINE 2+ (NEGATIVE); NITRITE,URINE NEGATIVE (NEGATIVE); PH,URINE 5 (4.5-8.0); PROTEIN,URINE 2+ (NEGATIVE); UROBILINOGEN,URINE NORMAL MG/DL (0.0-1.0)
[2018-03-22] MEDS: LORazepam 1mg tab GT SCH (18:10)
[2018-03-22 20:00] VITALS: BP 129/79
[2018-03-23] VITALS: BP 157/96
[2018-03-23] MEDS: LORazepam 1mg tab GT SCH ×5 (00:21→23:34)
[2018-03-23 04:00] VITALS: BP 143/77
[2018-03-23] MEDS: Meropenem 1 GM in NS 55 ML IVPB SCH ×2 (06:00→18:31)
[2018-03-23] MEDS: Ipratropium 0.02% Inh Soln 2.5ml UD HHN SCH ×3 (06:59→21:12)
--- NOTE | 2018-03-23 07:53 | Infectious Diseases Prog Note ---
Assessment/Plan Assessment/Plan ASSESSMENT: 1. The patient is a 52-year-old female, who was admitted to this medical center with: 2. Respiratory distress possible pneumonia Sputum growing GNRx2, (the patient does not have much respiratory secretions, chest x-ray is unremarkable), however, needs to rule out probable underlying healthcare-associated pneumonia. - Sputum 03/17/18 - P.a. and Providencia and GPC 3. Rule out bacteremia. - Blood Cx 03/16/18 NGTD 4. Rule out UTI - UCx 03/17/18 NGTD - unremarkable UA). 5. Leukocytosis. - Improving 6. Afebrile. 7. No diarrhea to rule out C. difficile. 8. PAT - PLAN: - Needs IV access patient consenting to IV but not PICC. - Will try IV in foot Continue Meropenem #5/10 for PNA and possible UTI - D/C 03/21 Vancomycin #5 No MRSA found and increasing Cr - D/C 03/19 SP Ceftrixone #3 - f/u CBC. - Monitor cultures (blood, urine, sputum). - Monitor chest x-ray for possible development of infiltrate. Thank you, Dr. Hines, for allowing us to participate in the care of this patient. I will follow the patient with you during this hospitalization. Subjective Allergies: Coded Allergies: MORPHINE (Verified Allergy, Unknown, 03/15/18) Uncoded Allergies: Paper tape (Allergy, Unknown, 03/17/18) Pcg provide additional information Subjective Patient awake and alert IV infiltrated and painful so removed last night On Vent 30% O2 Objective Vital Signs Last 24 Hour Vital Signs Date Time Temp Pulse Resp B/P (MAP) Pulse Ox O2 Delivery O2 Flow Rate FiO2 03/23/18 07:08 86 12 100 Mechanical Ventilator 40 03/23/18 07:06 92 12 100 Mechanical Ventilator 40 03/23/18 06:59 92 12 40 03/23/18 05:13 87 12 40 03/23/18 04:00 Mechanical Ventilator 03/23/18 04:00 73 03/23/18 04:00 40 03/23/18 04:00 97.5 79 12 143/77 (99) 100 97.5 03/23/18 03:11 73 12 40 03/23/18 00:54 88 12 40 03/23/18 00:00 97 03/23/18 00:00 Mechanical Ventilator 03/23/18 00:00 98.2 92 12 157/96 (116) 100 98.2 03/23/18 00:00 40 03/22/18 22:55 92 18 40 03/22/18 20:30 77 12 40 03/22/18 20:00 97.9 83 18 129/79 (96) 100 97.9 03/22/18 20:00 40 03/22/18 20:00 Mechanical Ventilator 03/22/18 20:00 77 03/22/18 19:13 76 12 40 03/22/18 19:13 76 12 99 Mechanical Ventilator 40 03/22/18 19:05 83 12 98 Mechanical Ventilator 40 03/22/18 17:12 81 12 40 03/22/18 16:16 73 03/22/18 16:09 40 03/22/18 16:00 97.5 72 18 121/74 (90) 100 97.5 03/22/18 16:00 Mechanical Ventilator 03/22/18 14:31 75 12 40 03/22/18 13:04 79 12 99 Mechanical Ventilator 40 03/22/18 12:59 81 12 40 03/22/18 12:00 40 03/22/18 12:00 97.2 81 12 125/73 (90) 100 97.2 03/22/18 12:00 78 03/22/18 12:00 Mechanical Ventilator 03/22/18 11:00 97.2 03/22/18 10:57 90 12 40 03/22/18 09:48 97.2 03/22/18 09:02 85 12 40 03/22/18 08:00 Mechanical Ventilator 03/22/18 08:00 97.2 95 12 126/71 (89) 100 97.2 03/22/18 08:00 40 03/22/18 08:00 88 Height (Feet): 5 Height (Inches): 10.00 Weight (Pounds): 163 Objective GEN: NAD, Awake, Patient interactive on computer HEENT: NCAT, MMM, EOMI, Trached CHEST: CTAB, No Wheezing, Pacemaker in place (no erythema or breakdown of overlying skin) HEART: RRR, S1, S2. No MRG ABDOMEN: Soft. PEG tube in place. ( no surrounding erythema) NEUROLOGIC: The patient opens eyes to voice SKIN: No rash. Microbiology Date/Time Source Procedure Growth Status 03/21/18 19:15 Urine,Clean Catch Urine Culture - Preliminary NO GROWTH Resulted Laboratory Tests Test 03/22/18 14:10 Urine Color Pale yellow Urine Appearance Clear Urine pH 5 (4.5-8.0) Urine Specific [place] 1.010 (1.005-1.035) Urine Protein 2+ (NEGATIVE) H Urine Glucose (UA) Negative (NEGATIVE) Urine Ketones Negative (NEGATIVE) Urine Occult Blood 4+ (NEGATIVE) H Urine Nitrite Negative (NEGATIVE) Urine Bilirubin Negative (NEGATIVE) Urine Urobilinogen Normal MG/DL (0.0-1.0) Urine Leukocyte Esterase 2+ (NEGATIVE) H Urine RBC 2-4 /HPF (0 - 2) H Urine WBC 2-4 /HPF (0 - 2) Urine Squamous Epithelial Cells Few /LPF (NONE/OCC) Urine Bacteria Few /HPF (NONE) Urine Yeast Few /HPF (NONE) H Urine Eosinophils None seen (NONE SEEN) Urine Random Sodium 68 mmol/L (20-110) Current Medications Medications (Trade) Dose Ordered Sig/Madisyn Route PRN Reason Start Time Stop Time Status Last Admin Dose Admin Acetaminophen (Tylenol) 650 mg Q4H PRN GT Prn Headache/Temp > 101 03/22/18 13:48 04/21/18 13:47 Dextrose (Dextrose 50%) 25 ml STAT PRN IV Hypoglycemia 03/15/18 17:45 04/14/18 17:44 Dextrose (Dextrose 50%) 50 ml STAT PRN IV Hypoglycemia 03/15/18 18:00 04/14/18 17:59 Heparin Sodium (Porcine) (Heparin 5000 units/ml) 5,000 units EVERY 12 HOURS SUBQ 03/15/18 21:00 04/14/18 20:59 03/17/18 09:39 Ipratropium [place] (Atrovent) 500 mcg TIDRT HHN 03/21/18 19:00 03/26/18 18:59 03/23/18 06:59 Lorazepam (Ativan) 2 mg Q6H PRN ORAL ANXIETY 03/22/18 16:45 03/29/18 16:44 Lorazepam (Ativan) 2 mg Q6HR GT 03/22/18 18:00 03/29/18 17:59 03/23/18 06:37 Meropenem 1 gm/ Sodium Chloride 55 ml @ 110 mls/hr Q12H IVPB 03/21/18 18:00 03/26/18 17:59 03/22/18 18:10 Ondansetron HCl (Zofran) 4 mg Q6H PRN IVP Nausea & Vomiting 03/15/18 17:45 04/14/18 17:44 Pantoprazole (Protonix) 40 mg DAILY IV 03/16/18 09:00 04/15/18 08:59 03/22/18 09:21 Polyethylene Glycol (Miralax) 17 gm DAILYPRN PRN ORAL Constipation 03/15/18 17:45 04/14/18 17:44 Sodium Chloride 1,000 ml @ 150 mls/hr Q6H40M IV 03/21/18 15:30 04/20/18 15:29 03/23/18 01:35 Temazepam (Restoril) 15 mg HSPRN PRN ORAL Insomnia 03/22/18 21:00 03/29/18 20:59 Pratik Day M.D. Mar 23, 2018 07:53
[2018-03-23 08:00] VITALS: BP 155/89
--- NOTE | 2018-03-23 08:50 | Pulmonolgy Critical Care Note ---
Critical Care - Asmt/Plan Problems: (1) Acute on chronic respiratory failure (2) Right lower lobe pulmonary infiltrate (3) Sepsis (4) ALS (amyotrophic lateral sclerosis) (5) Pacemaker (6) Feeding by G-tube (7) ATN (acute tubular necrosis) Respiratory: monitor respiratory rate, adjust FIO2, CXR Cardiac: continue to monitor HR/BP Renal: F/U I&O, keep IV fluid Infectious Disease: check cultures Gastrointestinal: continue feedings/current rate Endocrine: monitor blood sugar, check TSH Hematologic: monitor H/H Neurologic: PRN Morphine Affect: PRN ativan Prophylaxis: Protonix, Heparin Notes Reviewed: cardio, renal Discussed with: nurses, consultants, 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 - Objective Last 24 Hour Vital Signs Date Time Temp Pulse Resp B/P (MAP) Pulse Ox O2 Delivery O2 Flow Rate FiO2 03/23/18 07:08 86 12 100 Mechanical Ventilator 40 03/23/18 07:06 92 12 100 Mechanical Ventilator 40 03/23/18 06:59 92 12 40 03/23/18 05:13 87 12 40 03/23/18 04:00 Mechanical Ventilator 03/23/18 04:00 73 03/23/18 04:00 40 03/23/18 04:00 97.5 79 12 143/77 (99) 100 97.5 03/23/18 03:11 73 12 40 03/23/18 00:54 88 12 40 03/23/18 00:00 97 03/23/18 00:00 Mechanical Ventilator 03/23/18 00:00 98.2 92 12 157/96 (116) 100 98.2 03/23/18 00:00 40 03/22/18 22:55 92 18 40 03/22/18 20:30 77 12 40 03/22/18 20:00 97.9 83 18 129/79 (96) 100 97.9 03/22/18 20:00 40 03/22/18 20:00 Mechanical Ventilator 03/22/18 20:00 77 03/22/18 19:13 76 12 40 03/22/18 19:13 76 12 99 Mechanical Ventilator 40 03/22/18 19:05 83 12 98 Mechanical Ventilator 40 03/22/18 17:12 81 12 40 03/22/18 16:16 73 03/22/18 16:09 40 03/22/18 16:00 97.5 72 18 121/74 (90) 100 97.5 03/22/18 16:00 Mechanical Ventilator 03/22/18 14:31 75 12 40 03/22/18 13:04 79 12 99 Mechanical Ventilator 40 03/22/18 12:59 81 12 40 03/22/18 12:00 40 03/22/18 12:00 97.2 81 12 125/73 (90) 100 97.2 03/22/18 12:00 78 03/22/18 12:00 Mechanical Ventilator 03/22/18 11:00 97.2 03/22/18 10:57 90 12 40 03/22/18 09:48 97.2 03/22/18 09:02 85 12 40 Status: awake Condition: critical HEENT: atraumatic Lungs: clear Heart: HR/BP stable Abdomen: soft, active bowel sounds Extremities: no C/C/E, edema Decubiti: location, stage Micro: Microbiology Date/Time Source Procedure Growth Status 03/22/18 14:10 Urine,Clean Catch Urine Culture - Preliminary NO GROWTH Resulted 03/21/18 19:15 Urine,Clean Catch Urine Culture - Preliminary Gram Positive Cocci Yeast Species Resulted Critical Care - Subjective ROS Limited/Unobtainable: No Condition: critical, improving FI02: 40 Vent Support Breath Rate: 12 Vent Support Mode: AC Vent Tidal Volume: 450 Sputum Amount: Scant PEEP: 5.0 PIP: 30 Tube Feeding Amount: 37 I&O: Intake and Output 03/22/18 03/23/18 19:00 07:00 Intake Total 1314 ml 1434 ml Output Total 350 ml 800 ml Balance 964 ml 634 ml IV Total 1035 ml 1125 ml Tube Feeding 259 ml 259 ml Other 20 ml 50 ml Output Urine Total 350 ml 800 ml # Voids 1 # Bowel Movements 2 Labs: Laboratory Tests Test 03/22/18 14:10 Urine Color Pale yellow Urine Appearance Clear Urine pH 5 (4.5-8.0) Urine Specific [place] 1.010 (1.005-1.035) Urine Protein 2+ (NEGATIVE) H Urine Glucose (UA) Negative (NEGATIVE) Urine Ketones Negative (NEGATIVE) Urine Occult Blood 4+ (NEGATIVE) H Urine Nitrite Negative (NEGATIVE) Urine Bilirubin Negative (NEGATIVE) Urine Urobilinogen Normal MG/DL (0.0-1.0) Urine Leukocyte Esterase 2+ (NEGATIVE) H Urine RBC 2-4 /HPF (0 - 2) H Urine WBC 2-4 /HPF (0 - 2) Urine Squamous Epithelial Cells Few /LPF (NONE/OCC) Urine Bacteria Few /HPF (NONE) Urine Yeast Few /HPF (NONE) H Urine Eosinophils None seen (NONE SEEN) Urine Random Sodium 68 mmol/L (20-110) Anastasiia Hines MD Mar 23, 2018 08:50
--- NOTE | 2018-03-23 09:43 | Cardiology Progress Note ---
Assessment/Plan Status: stable Assessment/Plan Assessment: (1) Acute on chronic respiratory failure (2) Right lower lobe pulmonary infiltrate (3) Sepsis (4) ALS (amyotrophic lateral sclerosis) (5) Pacemaker (6) Feeding by G-tube Plan: Replace IV IV fluid hydration Continue antibiotics for PNA/UTI Possible right thoracentesis if no improvement Trach care, pulmonary toilet PPM working appropriately Echocardiogram reviewed - normal LV function Gi Ppx DVT ppx Physical therapy Wound care Dispo planning Subjective Cardiovascular: Reports: no symptoms Respiratory: Reports: no symptoms Gastrointestinal/Abdominal: Reports: no symptoms Genitourinary: Reports: no symptoms Subjective No acute events, WBC normal, Creatinine coming down with hydration. She is A paced, pacemaker c/d/i. Stable on vent settlings, no distress. GT clean and feeds running. LE doppler negative for DVT. CXR with RUL consolidation and effusion Currently does not have PIV to receive antibiotics, she did not want another inserted, she is aware or R/B/A Objective Last 24 Hour Vital Signs Date Time Temp Pulse Resp B/P (MAP) Pulse Ox O2 Delivery O2 Flow Rate FiO2 03/23/18 09:08 74 12 40 03/23/18 07:08 86 12 100 Mechanical Ventilator 40 03/23/18 07:06 92 12 100 Mechanical Ventilator 40 03/23/18 06:59 92 12 40 03/23/18 05:13 87 12 40 03/23/18 04:00 Mechanical Ventilator 03/23/18 04:00 73 03/23/18 04:00 40 03/23/18 04:00 97.5 79 12 143/77 (99) 100 97.5 03/23/18 03:11 73 12 40 03/23/18 00:54 88 12 40 03/23/18 00:00 97 03/23/18 00:00 Mechanical Ventilator 03/23/18 00:00 98.2 92 12 157/96 (116) 100 98.2 03/23/18 00:00 40 03/22/18 22:55 92 18 40 03/22/18 20:30 77 12 40 03/22/18 20:00 97.9 83 18 129/79 (96) 100 97.9 03/22/18 20:00 40 03/22/18 20:00 Mechanical Ventilator 03/22/18 20:00 77 8/10/18 19:13 76 12 40 03/22/18 19:13 76 12 99 Mechanical Ventilator 40 03/22/18 19:05 83 12 98 Mechanical Ventilator 40 03/22/18 17:12 81 12 40 03/22/18 16:16 73 03/22/18 16:09 40 03/22/18 16:00 97.5 72 18 121/74 (90) 100 97.5 03/22/18 16:00 Mechanical Ventilator 03/22/18 14:31 75 12 40 03/22/18 13:04 79 12 99 Mechanical Ventilator 40 03/22/18 12:59 81 12 40 03/22/18 12:00 40 03/22/18 12:00 97.2 81 12 125/73 (90) 100 97.2 03/22/18 12:00 78 03/22/18 12:00 Mechanical Ventilator 03/22/18 11:00 97.2 03/22/18 10:57 90 12 40 03/22/18 09:48 97.2 General Appearance: no apparent distress, on vent EENT: PERRL/EOMI, normal ENT inspection Neck: non-tender, normal alignment Rhythm: NSR Cardiovascular: normal peripheral pulses Respiratory/Chest: chest wall non-tender, lungs clear Abdomen: normal bowel sounds, non tender Extremities: normal range of motion, non-tender Neurologic: estimator paperboard boxes II-XII grossly normal Intake and Output 03/22/18 03/23/18 19:00 07:00 Intake Total 1314 ml 1434 ml Output Total 350 ml 800 ml Balance 964 ml 634 ml IV Total 1035 ml 1125 ml Tube Feeding 259 ml 259 ml Other 20 ml 50 ml Output Urine Total 350 ml 800 ml # Voids 1 # Bowel Movements 2 Laboratory Tests Test 03/22/18 14:10 Urine Color Pale yellow Urine Appearance Clear Urine pH 5 (4.5-8.0) Urine Specific [place] 1.010 (1.005-1.035) Urine Protein 2+ (NEGATIVE) H Urine Glucose (UA) Negative (NEGATIVE) Urine Ketones Negative (NEGATIVE) Urine Occult Blood 4+ (NEGATIVE) H Urine Nitrite Negative (NEGATIVE) Urine Bilirubin Negative (NEGATIVE) Urine Urobilinogen Normal MG/DL (0.0-1.0) Urine Leukocyte Esterase 2+ (NEGATIVE) H Urine RBC 2-4 /HPF (0 - 2) H Urine WBC 2-4 /HPF (0 - 2) Urine Squamous Epithelial Cells Few /LPF (NONE/OCC) Urine Bacteria Few /HPF (NONE) Urine Yeast Few /HPF (NONE) H Urine Eosinophils None seen (NONE SEEN) Urine Random Sodium 68 mmol/L (20-110) Microbiology Date/Time Source Procedure Growth Status 03/22/18 14:10 Urine,Clean Catch Urine Culture - Preliminary NO GROWTH Resulted 03/21/18 19:15 Urine,Clean Catch Urine Culture - Preliminary Gram Positive Cocci Yeast Species Resulted Pratik Yan M.D. Mar 23, 2018 09:43
--- NOTE | 2018-03-23 09:52 | Nephrology Progress Note ---
Assessment/Plan Problem List: (1) ATN (acute tubular necrosis) (2) Pacemaker (3) ALS (amyotrophic lateral sclerosis) (4) Feeding by G-tube (5) Acute on chronic respiratory failure Assessment acute renal failure- likely due to toxic vanco level of 50 ! Cr lower K wnl Anemia Other conditions - Acute on chronic respiratory failure - Right lower lobe pulmonary infiltrate - Sepsis - ALS (amyotrophic lateral sclerosis) - Pacemaker - Feeding by G-tube Plan no labs today as patient refuses blood draw monitor Vanco levels and Cr continue hydrate Subjective ROS Limited/Unobtainable: No Objective Objective Last 24 Hour Vital Signs Date Time Temp Pulse Resp B/P (MAP) Pulse Ox O2 Delivery O2 Flow Rate FiO2 03/23/18 09:08 74 12 40 03/23/18 07:08 86 12 100 Mechanical Ventilator 40 03/23/18 07:06 92 12 100 Mechanical Ventilator 40 03/23/18 06:59 92 12 40 03/23/18 05:13 87 12 40 03/23/18 04:00 Mechanical Ventilator 03/23/18 04:00 73 03/23/18 04:00 40 03/23/18 04:00 97.5 79 12 143/77 (99) 100 97.5 03/23/18 03:11 73 12 40 03/23/18 00:54 88 12 40 03/23/18 00:00 97 03/23/18 00:00 Mechanical Ventilator 03/23/18 00:00 98.2 92 12 157/96 (116) 100 98.2 03/23/18 00:00 40 03/22/18 22:55 92 18 40 03/22/18 20:30 77 12 40 03/22/18 20:00 97.9 83 18 129/79 (96) 100 97.9 03/22/18 20:00 40 03/22/18 20:00 Mechanical Ventilator 03/22/18 20:00 77 03/22/18 19:13 76 12 40 03/22/18 19:13 76 12 99 Mechanical Ventilator 40 03/22/18 19:05 83 12 98 Mechanical Ventilator 40 03/22/18 17:12 81 12 40 03/22/18 16:16 73 03/22/18 16:09 40 03/22/18 16:00 97.5 72 18 121/74 (90) 100 97.5 03/22/18 16:00 Mechanical Ventilator 03/22/18 14:31 75 12 40 03/22/18 13:04 79 12 99 Mechanical Ventilator 40 03/22/18 12:59 81 12 40 03/22/18 12:00 40 03/22/18 12:00 97.2 81 12 125/73 (90) 100 97.2 03/22/18 12:00 78 03/22/18 12:00 Mechanical Ventilator 03/22/18 11:00 97.2 03/22/18 10:57 90 12 40 03/22/18 09:48 97.2 Intake and Output 03/22/18 03/23/18 19:00 07:00 Intake Total 1314 ml 1434 ml Output Total 350 ml 800 ml Balance 964 ml 634 ml IV Total 1035 ml 1125 ml Tube Feeding 259 ml 259 ml Other 20 ml 50 ml Output Urine Total 350 ml 800 ml # Voids 1 # Bowel Movements 2 Laboratory Tests 03/22/18 14:10: Urine Color Pale yellow, Urine Appearance Clear, Urine pH 5, Urine Specific [place] 1.010, Urine Protein 2+H, Urine Glucose (UA) Negative, Urine Ketones Negative, Urine Occult Blood 4+H, Urine Nitrite Negative, Urine Bilirubin Negative, Urine Urobilinogen Normal, Urine Leukocyte Esterase 2+H, Urine RBC 2- 4H, Urine WBC 2-4, Urine Squamous Epithelial Cells Few, Urine Bacteria Few, Urine Yeast FewH, Urine Eosinophils None seen, Urine Random Sodium 68 Height (Feet): 5 Height (Inches): 10.00 Weight (Pounds): 163 General Appearance: no apparent distress Cardiovascular: tachycardia Respiratory/Chest: decreased breath sounds Abdomen: soft Objective no change Pan Covington MD Mar 23, 2018 09:52
[2018-03-23] MEDS: Pantoprazole Inj IV SCH (09:59)
[2018-03-23] MEDS: Heparin 5000 units/ml inj SUBQ SCH ×2 (10:01→20:56)
[2018-03-23 12:00] VITALS: BP 154/82
[2018-03-23] MEDS ORDERED: Tubing IV Secondary IV ONE (14:15)
[2018-03-23] MEDS ORDERED: Sterile Water Irrig 1000ml IRRIG ONE (14:15)
[2018-03-23 16:00] VITALS: BP 151/80
[2018-03-23 20:00] VITALS: BP 153/85
[2018-03-24] VITALS: BP 167/96
[2018-03-24 04:00] VITALS: BP 135/83
[2018-03-24] MEDS: Meropenem 1 GM in NS 55 ML IVPB SCH ×2 (05:48→18:21)
[2018-03-24] MEDS: LORazepam 1mg tab GT SCH ×4 (06:22→21:43)
[2018-03-24] MEDS: Ipratropium 0.02% Inh Soln 2.5ml UD HHN SCH ×3 (07:00→18:51)
[2018-03-24 08:00] VITALS: BP 151/84
[2018-03-24] MEDS: Pantoprazole Inj IV SCH (10:13)
[2018-03-24] MEDS: Heparin 5000 units/ml inj SUBQ SCH ×2 (10:17→21:00)
--- NOTE | 2018-03-24 10:52 | Cardiology Progress Note ---
Assessment/Plan Status: stable Assessment/Plan Assessment: (1) Acute on chronic respiratory failure (2) Right lower lobe pulmonary infiltrate (3) Sepsis (4) ALS (amyotrophic lateral sclerosis) (5) Pacemaker (6) Feeding by G-tube Plan: Replace IV Continue antibiotics for PNA/UTI Possible right thoracentesis if no improvement Trach care, pulmonary toilet PPM working appropriately Echocardiogram reviewed - normal LV function Monitor renal function Minimize blood draws Gi Ppx DVT ppx Physical therapy Wound care Dispo planning Subjective Cardiovascular: Reports: no symptoms Respiratory: Reports: no symptoms Gastrointestinal/Abdominal: Reports: no symptoms Genitourinary: Reports: no symptoms Subjective No acute events, WBC normal, Creatinine coming down with hydration. She is A paced, pacemaker c/d/i. Stable on vent settlings, no distress. GT clean and feeds running. LE doppler negative for DVT. CXR with RUL consolidation and effusion Currently does not have PIV to receive antibiotics, she did not want another inserted, she is aware or R/B/A Objective Last 24 Hour Vital Signs Date Time Temp Pulse Resp B/P (MAP) Pulse Ox O2 Delivery O2 Flow Rate FiO2 03/24/18 09:17 70 12 40 03/24/18 07:11 98 12 100 Mechanical Ventilator 40 03/24/18 07:01 91 12 100 Mechanical Ventilator 40 03/24/18 06:51 91 12 40 03/24/18 05:30 109 12 40 03/24/18 04:00 98.1 92 12 135/83 (100) 98 98.1 03/24/18 04:00 95 03/24/18 04:00 Mechanical Ventilator 03/24/18 04:00 40 03/24/18 03:25 106 12 40 03/24/18 00:59 107 12 40 03/24/18 00:00 Mechanical Ventilator 03/24/18 00:00 98.2 108 12 167/96 (119) 100 98.2 03/24/18 00:00 40 03/24/18 00:00 105 03/23/18 23:22 105 12 40 03/23/18 21:12 83 12 40 03/23/18 20:00 40 03/23/18 20:00 91 03/23/18 20:00 Mechanical Ventilator 03/23/18 20:00 89 12 100 Mechanical Ventilator 40 03/23/18 20:00 86 12 97 Mechanical Ventilator 40 03/23/18 20:00 97.7 88 12 153/85 (107) 100 97.7 03/23/18 19:21 86 12 40 03/23/18 16:54 91 12 40 03/23/18 16:00 Mechanical Ventilator 03/23/18 16:00 97.7 88 12 151/80 (103) 100 97.7 03/23/18 16:00 84 03/23/18 16:00 40 03/23/18 15:00 85 12 40 03/23/18 13:05 88 12 100 Mechanical Ventilator 40 03/23/18 13:00 94 12 96 Mechanical Ventilator 40 03/23/18 12:58 94 12 40 03/23/18 12:00 Mechanical Ventilator 03/23/18 12:00 40 03/23/18 12:00 97.4 80 12 154/82 (106) 100 97.4 03/23/18 12:00 77 General Appearance: no apparent distress, alert, on vent EENT: PERRL/EOMI, normal ENT inspection Neck: non-tender, normal alignment, no JVD Rhythm: NSR Cardiovascular: normal peripheral pulses, normal rate, regular rhythm Respiratory/Chest: chest wall non-tender, lungs clear Abdomen: normal bowel sounds, non tender Extremities: normal range of motion, non-tender Neurologic: manager recovery II-XII grossly normal Intake and Output 03/23/18 03/24/18 19:00 07:00 Intake Total 1144 ml 2059 ml Output Total 650 ml Balance 494 ml 2059 ml Free Water 100 ml 100 ml IV Total 600 ml 1435 ml Tube Feeding 444 ml 444 ml Other 80 ml Output Urine Total 650 ml # Bowel Movements 3 Microbiology Date/Time Source Procedure Growth Status 03/22/18 14:10 Urine,Clean Catch Urine Culture - Preliminary Mixed Gram Positive Organism Resulted 03/21/18 19:15 Urine,Clean Catch Urine Culture - Preliminary Gram Positive Cocci Yeast Species Resulted Pratik Yan M.D. Mar 24, 2018 10:52
[2018-03-24 12:00] VITALS: BP 155/86
--- NOTE | 2018-03-24 12:32 | Nephrology Progress Note ---
Assessment/Plan Problem List: (1) ATN (acute tubular necrosis) (2) Pacemaker (3) ALS (amyotrophic lateral sclerosis) (4) Feeding by G-tube (5) Acute on chronic respiratory failure Assessment acute renal failure- likely due to toxic vanco level of 50 ! Cr ? - refused blood draw 03/23 and so far 03/24 Anemia Other conditions - Acute on chronic respiratory failure - Right lower lobe pulmonary infiltrate - Sepsis - ALS (amyotrophic lateral sclerosis) - Pacemaker - Feeding by G-tube Plan no labs today as patient refuses blood draw monitor Vanco levels and Cr continue hydrate as possible Subjective ROS Limited/Unobtainable: No Objective Objective Last 24 Hour Vital Signs Date Time Temp Pulse Resp B/P (MAP) Pulse Ox O2 Delivery O2 Flow Rate FiO2 03/24/18 12:00 Mechanical Ventilator 03/24/18 12:00 40 03/24/18 10:45 85 12 40 03/24/18 09:17 70 12 40 03/24/18 08:00 76 03/24/18 08:00 40 03/24/18 08:00 97.6 76 12 151/84 (106) 98 97.6 03/24/18 08:00 Mechanical Ventilator 03/24/18 07:11 98 12 100 Mechanical Ventilator 40 03/24/18 07:01 91 12 100 Mechanical Ventilator 40 03/24/18 06:51 91 12 40 03/24/18 05:30 109 12 40 03/24/18 04:00 98.1 92 12 135/83 (100) 98 98.1 03/24/18 04:00 95 03/24/18 04:00 Mechanical Ventilator 03/24/18 04:00 40 03/24/18 03:25 106 12 40 03/24/18 00:59 107 12 40 03/24/18 00:00 Mechanical Ventilator 03/24/18 00:00 98.2 108 12 167/96 (119) 100 98.2 03/24/18 00:00 40 03/24/18 00:00 105 03/23/18 23:22 105 12 40 03/23/18 21:12 83 12 40 03/23/18 20:00 40 03/23/18 20:00 91 03/23/18 20:00 Mechanical Ventilator 03/23/18 20:00 89 12 100 Mechanical Ventilator 40 03/23/18 20:00 86 12 97 Mechanical Ventilator 40 03/23/18 20:00 97.7 88 12 153/85 (107) 100 97.7 03/23/18 19:21 86 12 40 03/23/18 16:54 91 12 40 03/23/18 16:00 Mechanical Ventilator 03/23/18 16:00 97.7 88 12 151/80 (103) 100 97.7 03/23/18 16:00 84 03/23/18 16:00 40 03/23/18 15:00 85 12 40 03/23/18 13:05 88 12 100 Mechanical Ventilator 40 03/23/18 13:00 94 12 96 Mechanical Ventilator 40 03/23/18 12:58 94 12 40 Intake and Output 03/23/18 03/24/18 19:00 07:00 Intake Total 1144 ml 2059 ml Output Total 650 ml Balance 494 ml 2059 ml Free Water 100 ml 100 ml IV Total 600 ml 1435 ml Tube Feeding 444 ml 444 ml Other 80 ml Output Urine Total 650 ml # Bowel Movements 3 Height (Feet): 5 Height (Inches): 10.00 Weight (Pounds): 163 General Appearance: no apparent distress Objective no change Pan Covington MD Mar 24, 2018 12:32
--- NOTE | 2018-03-24 12:44 | Pulmonolgy Critical Care Note ---
Critical Care - Asmt/Plan Problems: (1) Acute on chronic respiratory failure (2) Right lower lobe pulmonary infiltrate (3) Sepsis (4) ALS (amyotrophic lateral sclerosis) (5) Pacemaker (6) Feeding by G-tube (7) ATN (acute tubular necrosis) Respiratory: monitor respiratory rate, adjust FIO2 Cardiac: continue to monitor HR/BP Renal: F/U I&O Infectious Disease: check cultures, continue antibiotics Gastrointestinal: continue feedings/current rate Endocrine: monitor blood sugar, check HgA1C Hematologic: transfuse if hgb<8.5 Neurologic: PRN Morphine, keep patient comfortable Affect: PRN ativan Prophylaxis: Protonix 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, 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 Discussed with: consultants, caseworkermanager gallery - Objective Last 24 Hour Vital Signs Date Time Temp Pulse Resp B/P (MAP) Pulse Ox O2 Delivery O2 Flow Rate FiO2 03/24/18 12:00 Mechanical Ventilator 03/24/18 12:00 40 03/24/18 10:45 85 12 40 03/24/18 09:17 70 12 40 03/24/18 08:00 76 03/24/18 08:00 40 03/24/18 08:00 97.6 76 12 151/84 (106) 98 97.6 03/24/18 08:00 Mechanical Ventilator 03/24/18 07:11 98 12 100 Mechanical Ventilator 40 03/24/18 07:01 91 12 100 Mechanical Ventilator 40 03/24/18 06:51 91 12 40 03/24/18 05:30 109 12 40 03/24/18 04:00 98.1 92 12 135/83 (100) 98 98.1 03/24/18 04:00 95 03/24/18 04:00 Mechanical Ventilator 03/24/18 04:00 40 03/24/18 03:25 106 12 40 03/24/18 00:59 107 12 40 03/24/18 00:00 Mechanical Ventilator 03/24/18 00:00 98.2 108 12 167/96 (119) 100 98.2 03/24/18 00:00 40 03/24/18 00:00 105 03/23/18 23:22 105 12 40 03/23/18 21:12 83 12 40 03/23/18 20:00 40 03/23/18 20:00 91 03/23/18 20:00 Mechanical Ventilator 03/23/18 20:00 89 12 100 Mechanical Ventilator 40 03/23/18 20:00 86 12 97 Mechanical Ventilator 40 03/23/18 20:00 97.7 88 12 153/85 (107) 100 97.7 03/23/18 19:21 86 12 40 03/23/18 16:54 91 12 40 03/23/18 16:00 Mechanical Ventilator 03/23/18 16:00 97.7 88 12 151/80 (103) 100 97.7 03/23/18 16:00 84 03/23/18 16:00 40 03/23/18 15:00 85 12 40 03/23/18 13:05 88 12 100 Mechanical Ventilator 40 03/23/18 13:00 94 12 96 Mechanical Ventilator 40 03/23/18 12:58 94 12 40 Status: awake Condition: critical Neck: full ROM Lungs: clear Heart: HR/BP stable, regular Abdomen: active bowel sounds Extremities: no C/C/E, edema Micro: Microbiology Date/Time Source Procedure Growth Status 03/22/18 14:10 Urine,Clean Catch Urine Culture - Preliminary Mixed Gram Positive Organism Resulted 03/21/18 19:15 Urine,Clean Catch Urine Culture - Preliminary Gram Positive Cocci Yeast Species Resulted Critical Care - Subjective ROS Limited/Unobtainable: Yes Condition: critical EKG Rhythm: Sinus Rhythm FI02: 40 Vent Support Breath Rate: 12 Vent Support Mode: AC Vent Tidal Volume: 450 Sputum Amount: Small PEEP: 5.0 PIP: 24 Tube Feeding Amount: 37 I&O: Intake and Output 03/23/18 03/24/18 19:00 07:00 Intake Total 1144 ml 2059 ml Output Total 650 ml Balance 494 ml 2059 ml Free Water 100 ml 100 ml IV Total 600 ml 1435 ml Tube Feeding 444 ml 444 ml Other 80 ml Output Urine Total 650 ml # Bowel Movements 3 Labs: no labs Anastasiia Hines MD Mar 24, 2018 12:44
[2018-03-24] MEDS ORDERED: Sterile Water Irrig 1000ml IRRIG ONE (15:02)
[2018-03-24] MEDS ORDERED: Tubing IV Secondary IV ONE (15:02)
[2018-03-24 16:00] VITALS: BP 105/61
[2018-03-24 20:00] VITALS: BP 147/89
[2018-03-25] VITALS (7 sets, daily range): BP systolic 136–173; BP diastolic 76–89
[2018-03-25] MEDS: LORazepam 1mg tab GT SCH ×4 (05:21→23:53)
[2018-03-25] MEDS: Meropenem 1 GM in NS 55 ML IVPB SCH ×2 (05:22→18:03)
[2018-03-25] MEDS: Ipratropium 0.02% Inh Soln 2.5ml UD HHN SCH ×3 (07:34→19:09)
[2018-03-25] MEDS: Pantoprazole Inj IV SCH (08:39)
[2018-03-25] MEDS: Heparin 5000 units/ml inj SUBQ SCH ×2 (08:43→21:00)
--- NOTE | 2018-03-25 09:01 | Infectious Diseases Prog Note ---
Assessment/Plan Assessment/Plan ASSESSMENT: 1. The patient is a 52-year-old female, who was admitted to this medical center with: 2. Respiratory distress possible pneumonia Sputum growing GNRx2, (the patient does not have much respiratory secretions, chest x-ray is unremarkable), however, needs to rule out probable underlying healthcare-associated pneumonia. - Sputum 03/17/18 - P.a. and Providencia and GPC 3. Rule out bacteremia. - Blood Cx 03/16/18 NGTD 4. Rule out UTI - UCx 03/17/18 NGTD - unremarkable UA). 5. Leukocytosis. - Improving 6. Afebrile. 7. No diarrhea to rule out C. difficile. 8. PAT - PLAN: - Needs IV access patient consenting to IV but not PICC. - Will try IV in foot Continue Meropenem #7/10 for PNA and possible UTI - D/C 03/21 Vancomycin #5 No MRSA found and increasing Cr - D/C 03/19 SP Ceftrixone #3 - f/u CBC. - Monitor cultures (blood, urine, sputum). - Monitor chest x-ray for possible development of infiltrate. Thank you, Dr. Hines, for allowing us to participate in the care of this patient. I will follow the patient with you during this hospitalization. Subjective Allergies: Coded Allergies: MORPHINE (Verified Allergy, Unknown, 03/15/18) Uncoded Allergies: Paper tape (Allergy, Unknown, 03/17/18) Pcg provide additional information Subjective Patient awake and alert Taking via computer New IV access On Vent 30% O2 Objective Vital Signs Last 24 Hour Vital Signs Date Time Temp Pulse Resp B/P (MAP) Pulse Ox O2 Delivery O2 Flow Rate FiO2 03/25/18 08:39 157/82 03/25/18 07:42 79 12 100 Mechanical Ventilator 40 03/25/18 07:34 85 12 94 Mechanical Ventilator 40 03/25/18 07:29 85 12 40 03/25/18 04:47 79 12 40 03/25/18 04:00 40 03/25/18 04:00 Mechanical Ventilator 03/25/18 04:00 97.7 96 12 158/88 (111) 100 97.7 03/25/18 03:38 89 03/25/18 03:09 90 12 40 03/25/18 01:24 85 12 40 03/25/18 00:00 97.7 83 12 151/79 (103) 100 97.7 03/25/18 00:00 Mechanical Ventilator 03/25/18 00:00 40 03/24/18 23:52 82 03/24/18 23:15 80 12 40 03/24/18 21:00 87 12 40 03/24/18 20:00 40 03/24/18 20:00 98.4 90 12 147/89 (108) 98 98.4 03/24/18 20:00 Mechanical Ventilator 03/24/18 19:41 71 03/24/18 18:59 79 12 100 Mechanical Ventilator 40 03/24/18 18:58 78 12 100 Mechanical Ventilator 03/24/18 18:51 86 12 40 03/24/18 17:13 64 12 40 03/24/18 16:00 Mechanical Ventilator 03/24/18 16:00 77 03/24/18 16:00 40 03/24/18 16:00 97.5 71 12 105/61 (76) 98 97.5 03/24/18 15:06 76 12 40 03/24/18 14:15 151/84 03/24/18 13:39 Mechanical Ventilator 03/24/18 13:39 Mechanical Ventilator 03/24/18 13:28 81 12 40 03/24/18 12:00 Mechanical Ventilator 03/24/18 12:00 40 03/24/18 12:00 93 03/24/18 12:00 97.7 70 12 155/86 (109) 98 97.7 03/24/18 10:45 85 12 40 03/24/18 09:17 70 12 40 Height (Feet): 5 Height (Inches): 10.00 Weight (Pounds): 163 Objective GEN: NAD, Patient interactive on computer HEENT: NCAT, MMM, EOMI, Trached CHEST: CTAB, No Wheezing, Pacemaker in place (no erythema or breakdown of overlying skin) HEART: RRR, S1, S2. No MRG ABDOMEN: Soft. PEG tube in place. ( no surrounding erythema) NEUROLOGIC: The patient opens eyes to voice SKIN: No rash. Microbiology Date/Time Source Procedure Growth Status 03/22/18 14:10 Urine,Clean Catch Urine Culture - Final Mixed Gram Positive Organism Complete Current Medications Medications (Trade) Dose Ordered Sig/Madisyn Route PRN Reason Start Time Stop Time Status Last Admin Dose Admin Acetaminophen (Tylenol) 650 mg Q4H PRN GT Prn Headache/Temp > 101 03/22/18 13:48 04/21/18 13:47 Clonidine HCl (Catapres Tab) 0.1 mg Q4H PRN GT FOR BP > 160 03/24/18 09:00 04/23/18 08:59 03/25/18 08:39 Dextrose (Dextrose 50%) 25 ml STAT PRN IV Hypoglycemia 03/15/18 17:45 04/14/18 17:44 Dextrose (Dextrose 50%) 50 ml STAT PRN IV Hypoglycemia 03/15/18 18:00 04/14/18 17:59 Heparin Sodium (Porcine) (Heparin 5000 units/ml) 5,000 units EVERY 12 HOURS SUBQ 03/15/18 21:00 04/14/18 20:59 03/24/18 10:17 Ipratropium [place] (Atrovent) 500 mcg TIDRT HHN 03/21/18 19:00 03/26/18 18:59 03/25/18 07:34 Lorazepam (Ativan) 2 mg Q6H PRN ORAL ANXIETY 03/22/18 16:45 03/29/18 16:44 Lorazepam (Ativan) 2 mg Q6HR GT 03/22/18 18:00 03/29/18 17:59 03/25/18 05:21 Meropenem 1 gm/ Sodium Chloride 55 ml @ 110 mls/hr Q12H IVPB 03/21/18 18:00 03/26/18 17:59 03/25/18 05:22 Ondansetron HCl (Zofran) 4 mg Q6H PRN IVP Nausea & Vomiting 03/15/18 17:45 04/14/18 17:44 Pantoprazole (Protonix) 40 mg DAILY IV 03/16/18 09:00 04/15/18 08:59 03/25/18 08:39 Polyethylene Glycol (Miralax) 17 gm DAILYPRN PRN ORAL Constipation 03/15/18 17:45 04/14/18 17:44 Temazepam (Restoril) 15 mg HSPRN PRN ORAL Insomnia 03/22/18 21:00 03/29/18 20:59 Pratik Day M.D. Mar 25, 2018 09:01
--- NOTE | 2018-03-25 10:32 | Pulmonolgy Critical Care Note ---
Critical Care - Asmt/Plan Problems: (1) Acute on chronic respiratory failure (2) Right lower lobe pulmonary infiltrate (3) Sepsis (4) ALS (amyotrophic lateral sclerosis) (5) Pacemaker (6) Feeding by G-tube (7) ATN (acute tubular necrosis) Respiratory: monitor respiratory rate, adjust FIO2, CXR Cardiac: continue to monitor HR/BP Renal: F/U I&O, keep IV fluid Infectious Disease: check cultures Gastrointestinal: continue feedings/current rate Endocrine: monitor blood sugar, check HgA1C, continue sliding scale insulin Hematologic: transfuse if hgb<8.5 Neurologic: PRN Ativan, keep patient comfortable Prophylaxis: Protonix 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, 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 Discussed with: nurses, consultants, manager of case managementclient integration manager - Objective Last 24 Hour Vital Signs Date Time Temp Pulse Resp B/P (MAP) Pulse Ox O2 Delivery O2 Flow Rate FiO2 03/25/18 08:39 157/82 03/25/18 07:42 79 12 100 Mechanical Ventilator 40 03/25/18 07:34 85 12 94 Mechanical Ventilator 40 03/25/18 07:29 85 12 40 03/25/18 04:47 79 12 40 03/25/18 04:00 40 03/25/18 04:00 Mechanical Ventilator 03/25/18 04:00 97.7 96 12 158/88 (111) 100 97.7 03/25/18 03:38 89 03/25/18 03:09 90 12 40 03/25/18 01:24 85 12 40 03/25/18 00:00 97.7 83 12 151/79 (103) 100 97.7 03/25/18 00:00 Mechanical Ventilator 03/25/18 00:00 40 03/24/18 23:52 82 03/24/18 23:15 80 12 40 03/24/18 21:00 87 12 40 03/24/18 20:00 40 03/24/18 20:00 98.4 90 12 147/89 (108) 98 98.4 03/24/18 20:00 Mechanical Ventilator 03/24/18 19:41 71 03/24/18 18:59 79 12 100 Mechanical Ventilator 40 03/24/18 18:58 78 12 100 Mechanical Ventilator 03/24/18 18:51 86 12 40 03/24/18 17:13 64 12 40 8/12/18 16:00 Mechanical Ventilator 03/24/18 16:00 77 03/24/18 16:00 40 03/24/18 16:00 97.5 71 12 105/61 (76) 98 97.5 03/24/18 15:06 76 12 40 03/24/18 14:15 151/84 03/24/18 13:39 Mechanical Ventilator 03/24/18 13:39 Mechanical Ventilator 03/24/18 13:28 81 12 40 03/24/18 12:00 Mechanical Ventilator 03/24/18 12:00 40 03/24/18 12:00 93 03/24/18 12:00 97.7 70 12 155/86 (109) 98 97.7 03/24/18 10:45 85 12 40 Status: awake Condition: critical HEENT: atraumatic Lungs: clear Heart: HR/BP stable Abdomen: soft, non-tender Extremities: edema Decubiti: location, stage Micro: Microbiology Date/Time Source Procedure Growth Status 03/22/18 14:10 Urine,Clean Catch Urine Culture - Final Mixed Gram Positive Organism Complete Critical Care - Subjective ROS Limited/Unobtainable: Yes Condition: critical EKG Rhythm: Sinus Rhythm FI02: 40 Vent Support Breath Rate: 12 Vent Support Mode: AC Vent Tidal Volume: 450 Sputum Amount: None PEEP: 5.0 PIP: 31 Fluids: no IV fluids Tube Feeding Amount: 37 I&O: Intake and Output 03/24/18 03/25/18 19:00 07:00 Intake Total 746 ml 497 ml Output Total 300 ml Balance 746 ml 197 ml Free Water 150 ml 90 ml IV Total 300 ml Tube Feeding 296 ml 407 ml Output Urine Total 300 ml # Bowel Movements 2 CXR: pending Anastasiia Hines MD Mar 25, 2018 10:32
--- NOTE | 2018-03-25 11:19 | Cardiology Progress Note ---
Assessment/Plan Assessment/Plan Assessment: (1) Acute on chronic respiratory failure (2) Right lower lobe pulmonary infiltrate (3) Sepsis (4) ALS (amyotrophic lateral sclerosis) (5) Pacemaker (6) Feeding by G-tube Plan: Replace IV Continue antibiotics for PNA/UTI Possible right thoracentesis if no improvement Trach care, pulmonary toilet PPM working appropriately Echocardiogram reviewed - normal LV function Monitor renal function Minimize blood draws Gi Ppx DVT ppx Physical therapy Wound care Dispo planning Subjective Cardiovascular: Reports: no symptoms Respiratory: Reports: no symptoms Gastrointestinal/Abdominal: Reports: no symptoms Genitourinary: Reports: no symptoms Subjective No acute events, WBC normal, Creatinine coming down with hydration. She is A paced, pacemaker c/d/i. Stable on vent settlings, no distress. GT clean and feeds running. LE doppler negative for DVT. CXR with RUL consolidation and effusion Currently does not have PIV to receive antibiotics, she did not want another inserted, she is aware or R/B/A Objective Last 24 Hour Vital Signs Date Time Temp Pulse Resp B/P (MAP) Pulse Ox O2 Delivery O2 Flow Rate FiO2 03/25/18 10:35 86 12 40 03/25/18 09:05 92 12 40 03/25/18 08:39 157/82 03/25/18 08:00 Mechanical Ventilator 03/25/18 08:00 82 03/25/18 08:00 97.5 96 12 157/82 (107) 96 97.5 03/25/18 08:00 40 03/25/18 07:42 79 12 100 Mechanical Ventilator 40 03/25/18 07:34 85 12 94 Mechanical Ventilator 40 03/25/18 07:29 85 12 40 03/25/18 04:47 79 12 40 03/25/18 04:00 40 03/25/18 04:00 Mechanical Ventilator 03/25/18 04:00 97.7 96 12 158/88 (111) 100 97.7 03/25/18 03:38 89 03/25/18 03:09 90 12 40 03/25/18 01:24 85 12 40 03/25/18 00:00 97.7 83 12 151/79 (103) 100 97.7 03/25/18 00:00 Mechanical Ventilator 03/25/18 00:00 40 03/24/18 23:52 82 8/12/18 23:15 80 12 40 03/24/18 21:00 87 12 40 03/24/18 20:00 40 03/24/18 20:00 98.4 90 12 147/89 (108) 98 98.4 03/24/18 20:00 Mechanical Ventilator 03/24/18 19:41 71 03/24/18 18:59 79 12 100 Mechanical Ventilator 40 03/24/18 18:58 78 12 100 Mechanical Ventilator 03/24/18 18:51 86 12 40 03/24/18 17:13 64 12 40 03/24/18 16:00 Mechanical Ventilator 03/24/18 16:00 77 03/24/18 16:00 40 03/24/18 16:00 97.5 71 12 105/61 (76) 98 97.5 03/24/18 15:06 76 12 40 03/24/18 14:15 151/84 03/24/18 13:39 Mechanical Ventilator 03/24/18 13:39 Mechanical Ventilator 03/24/18 13:28 81 12 40 03/24/18 12:00 Mechanical Ventilator 03/24/18 12:00 40 03/24/18 12:00 93 03/24/18 12:00 97.7 70 12 155/86 (109) 98 97.7 General Appearance: no apparent distress, alert, on vent EENT: PERRL/EOMI, normal ENT inspection Neck: non-tender, normal alignment Rhythm: NSR Cardiovascular: normal peripheral pulses, normal rate Respiratory/Chest: chest wall non-tender, lungs clear Abdomen: normal bowel sounds, non tender Extremities: normal range of motion, non-tender Intake and Output 03/24/18 03/25/18 19:00 07:00 Intake Total 746 ml 497 ml Output Total 300 ml Balance 746 ml 197 ml Free Water 150 ml 90 ml IV Total 300 ml Tube Feeding 296 ml 407 ml Output Urine Total 300 ml # Bowel Movements 2 Microbiology Date/Time Source Procedure Growth Status 03/22/18 14:10 Urine,Clean Catch Urine Culture - Final Mixed Gram Positive Organism Complete Pratik Yan M.D. Mar 25, 2018 11:19
--- NOTE | 2018-03-25 13:23 | Nephrology Progress Note ---
Assessment/Plan Problem List: (1) ATN (acute tubular necrosis) (2) Pacemaker (3) ALS (amyotrophic lateral sclerosis) (4) Feeding by G-tube (5) Acute on chronic respiratory failure Assessment acute renal failure- likely due to toxic vanco level of 50 ! Cr ? - refused blood draw 03/23 and so far ?? Anemia Other conditions - Acute on chronic respiratory failure - Right lower lobe pulmonary infiltrate - Sepsis - ALS (amyotrophic lateral sclerosis) - Pacemaker - Feeding by G-tube Plan no labs today as patient refuses blood draw monitor Vanco levels and Cr continue hydrate as possible ? DC PLANNING? Subjective ROS Limited/Unobtainable: No Constitutional: Reports: malaise Objective Objective Last 24 Hour Vital Signs Date Time Temp Pulse Resp B/P (MAP) Pulse Ox O2 Delivery O2 Flow Rate FiO2 03/25/18 12:00 40 03/25/18 12:00 Mechanical Ventilator 03/25/18 12:00 97.0 96 12 173/89 (117) 100 97.0 03/25/18 10:35 86 12 40 03/25/18 09:05 92 12 40 03/25/18 08:39 157/82 03/25/18 08:00 Mechanical Ventilator 03/25/18 08:00 82 03/25/18 08:00 97.5 96 12 157/82 (107) 96 97.5 03/25/18 08:00 40 03/25/18 07:42 79 12 100 Mechanical Ventilator 40 03/25/18 07:34 85 12 94 Mechanical Ventilator 40 03/25/18 07:29 85 12 40 03/25/18 04:47 79 12 40 03/25/18 04:00 40 03/25/18 04:00 Mechanical Ventilator 03/25/18 04:00 97.7 96 12 158/88 (111) 100 97.7 03/25/18 03:38 89 03/25/18 03:09 90 12 40 03/25/18 01:24 85 12 40 03/25/18 00:00 97.7 83 12 151/79 (103) 100 97.7 03/25/18 00:00 Mechanical Ventilator 03/25/18 00:00 40 03/24/18 23:52 82 03/24/18 23:15 80 12 40 03/24/18 21:00 87 12 40 03/24/18 20:00 40 03/24/18 20:00 98.4 90 12 147/89 (108) 98 98.4 03/24/18 20:00 Mechanical Ventilator 03/24/18 19:41 71 03/24/18 18:59 79 12 100 Mechanical Ventilator 40 03/24/18 18:58 78 12 100 Mechanical Ventilator 03/24/18 18:51 86 12 40 03/24/18 17:13 64 12 40 03/24/18 16:00 Mechanical Ventilator 03/24/18 16:00 77 03/24/18 16:00 40 03/24/18 16:00 97.5 71 12 105/61 (76) 98 97.5 03/24/18 15:06 76 12 40 03/24/18 14:15 151/84 03/24/18 13:39 Mechanical Ventilator 03/24/18 13:39 Mechanical Ventilator 03/24/18 13:28 81 12 40 Intake and Output 03/24/18 03/25/18 19:00 07:00 Intake Total 746 ml 497 ml Output Total 300 ml Balance 746 ml 197 ml Free Water 150 ml 90 ml IV Total 300 ml Tube Feeding 296 ml 407 ml Output Urine Total 300 ml # Bowel Movements 2 Height (Feet): 5 Height (Inches): 10.00 Weight (Pounds): 163 General Appearance: no apparent distress Objective no change Pan Covington MD Mar 25, 2018 13:23
[2018-03-25] MEDS: Acetaminophen 650mg/20.3ml GT PRN (15:26)
[2018-03-25 17:03] LABS: EOSINOPHILS % (AUTO) 4.9 % (0.0-3.0); HEMATOCRIT 30.5 % (37.0-47.0); HEMOGLOBIN 10.3 G/DL (12.0-16.0); LYMPHOCYTES % (AUTO) 13.8 % (20.0-45.0); MEAN CORPUSCULAR VOLUME 93 FL (80-99); MONOCYTES % (AUTO) 5.8 % (1.0-10.0); NEUTROPHILS % (AUTO) 74.6 % (45.0-75.0); PLATELET COUNT 349 K/UL (150-450); RED BLOOD COUNT 3.27 M/UL (4.20-5.40); RED CELL DISTRIBUTION WIDTH 12.2 % (11.6-14.8); WHITE BLOOD COUNT 10.6 K/UL (4.8-10.8)
[2018-03-25 17:14] LABS: ALANINE AMINOTRANSFERASE 25 U/L (12-78); ALBUMIN 2.6 G/DL (3.4-5.0); ALBUMIN/GLOBULIN RATIO 0.6 (1.0-2.7); ALKALINE PHOSPHATASE 97 U/L (46-116); ANION GAP 5 mmol/L (5-15); ASPARTATE AMINO TRANSFERASE 20 U/L (15-37); BILIRUBIN,TOTAL 0.2 MG/DL (0.2-1.0); BLOOD UREA NITROGEN 37 mg/dL (7-18); CALCIUM 9.5 MG/DL (8.5-10.1); CARBON DIOXIDE 30 MMOL/L (21-32); CHLORIDE 109 MMOL/L (98-107); CREATININE 0.7 MG/DL (0.55-1.30); PHOSPHORUS 3.8 MG/DL (2.5-4.9); POTASSIUM 2.9 MMOL/L (3.5-5.1); SODIUM 144 MMOL/L (136-145)
[2018-03-26] VITALS: BP 152/92
[2018-03-26 04:00] VITALS: BP 148/89
[2018-03-26] MEDS: Acetaminophen 650mg/20.3ml GT PRN (04:53)
[2018-03-26] MEDS: Meropenem 1 GM in NS 55 ML IVPB SCH (05:08)
[2018-03-26] MEDS: LORazepam 1mg tab GT SCH ×3 (05:08→15:51)
[2018-03-26] MEDS: Ipratropium 0.02% Inh Soln 2.5ml UD HHN SCH ×2 (07:08→13:26)
[2018-03-26 08:00] VITALS: BP 133/80
[2018-03-26] MEDS: Heparin 5000 units/ml inj SUBQ SCH (08:26)
[2018-03-26] MEDS: Pantoprazole Inj IV SCH (08:26)
--- NOTE | 2018-03-26 08:34 | Infectious Diseases Prog Note ---
Assessment/Plan Assessment/Plan ASSESSMENT: 1. The patient is a 52-year-old female, who was admitted to this medical center with: 2. Respiratory distress possible pneumonia Sputum growing GNRx2, (the patient does not have much respiratory secretions, chest x-ray is unremarkable), however, needs to rule out probable underlying healthcare-associated pneumonia. - Sputum 03/17/18 - P.a. and Providencia and GPC 3. Rule out bacteremia. - Blood Cx 03/16/18 NGTD 4. Rule out UTI - UCx 03/17/18 NGTD - unremarkable UA). 5. Leukocytosis. - Improving 6. Afebrile. 7. No diarrhea to rule out C. difficile. 8. PAT - PLAN: Continue Meropenem #8/10 for PNA and possible UTI - D/C 03/21 Vancomycin #5 No MRSA found and increasing Cr - D/C 03/19 SP Ceftrixone #3 - f/u CBC. - Monitor cultures (blood, urine, sputum). - Monitor chest x-ray for possible development of infiltrate. Thank you, Dr. Hines, for allowing us to participate in the care of this patient. I will follow the patient with you during this hospitalization. Subjective Allergies: Coded Allergies: MORPHINE (Verified Allergy, Unknown, 03/15/18) Uncoded Allergies: Paper tape (Allergy, Unknown, 03/17/18) Pcg provide additional information Subjective Patient awake and alert On Vent 30% O2 Objective Vital Signs Last 24 Hour Vital Signs Date Time Temp Pulse Resp B/P (MAP) Pulse Ox O2 Delivery O2 Flow Rate FiO2 03/26/18 08:00 40 03/26/18 08:00 75 03/26/18 07:10 75 12 40 03/26/18 07:08 75 12 99 Mechanical Ventilator 40 03/26/18 05:00 84 12 40 03/26/18 04:00 40 03/26/18 04:00 Mechanical Ventilator 03/26/18 04:00 75 03/26/18 04:00 97.7 91 12 148/89 (108) 100 97.7 03/26/18 03:25 89 12 40 03/26/18 01:16 84 12 40 03/26/18 00:00 Mechanical Ventilator 03/26/18 00:00 97.9 92 12 152/92 (112) 100 97.9 03/26/18 00:00 40 03/26/18 00:00 78 03/25/18 23:00 86 12 40 03/25/18 21:12 90 12 40 03/25/18 20:00 40 03/25/18 20:00 84 03/25/18 20:00 Mechanical Ventilator 03/25/18 20:00 98.2 78 12 136/84 (101) 100 98.2 03/25/18 19:14 84 12 100 Mechanical Ventilator 40 03/25/18 19:09 95 12 40 03/25/18 19:09 95 12 100 Mechanical Ventilator 40 03/25/18 17:10 109 12 40 03/25/18 16:50 98.1 108 12 163/76 (105) 100 98.1 03/25/18 16:00 40 03/25/18 16:00 Mechanical Ventilator 03/25/18 15:27 165/92 03/25/18 15:27 98 03/25/18 15:17 120 12 40 03/25/18 14:05 154/81 (105) 03/25/18 13:12 82 12 100 Mechanical Ventilator 40 03/25/18 13:05 86 12 96 Mechanical Ventilator 40 03/25/18 13:05 88 12 40 03/25/18 12:00 40 03/25/18 12:00 Mechanical Ventilator 03/25/18 12:00 97.0 96 12 173/89 (117) 100 97.0 03/25/18 11:50 93 03/25/18 10:35 86 12 40 03/25/18 09:05 92 12 40 03/25/18 08:39 157/82 Height (Feet): 5 Height (Inches): 10.00 Weight (Pounds): 163 Objective GEN: NAD, calm HEENT: NCAT, MMM, EOMI, Trached CHEST: CTAB, No Wheezing, Pacemaker in place (no erythema or breakdown of overlying skin) HEART: RRR, S1, S2. No MRG ABDOMEN: Soft. PEG tube in place. ( no surrounding erythema) NEUROLOGIC: The patient opens eyes to voice SKIN: No rash. Laboratory Tests Test 03/25/18 16:40 White Blood Count 10.6 K/UL (4.8-10.8) Red Blood Count 3.27 M/UL (4.20-5.40) L Hemoglobin 10.3 G/DL (12.0-16.0) L Hematocrit 30.5 % (37.0-47.0) L Mean Corpuscular Volume 93 FL (80-99) Mean Corpuscular Hemoglobin 31.3 PG (27.0-31.0) H Mean Corpuscular Hemoglobin Concent 33.6 G/DL (32.0-36.0) Red Cell Distribution Width 12.2 % (11.6-14.8) Platelet Count 349 K/UL (150-450) Mean Platelet Volume 6.4 FL (6.5-10.1) L Neutrophils (%) (Auto) 74.6 % (45.0-75.0) Lymphocytes (%) (Auto) 13.8 % (20.0-45.0) L Monocytes (%) (Auto) 5.8 % (1.0-10.0) Eosinophils (%) (Auto) 4.9 % (0.0-3.0) H Basophils (%) (Auto) 1.0 % (0.0-2.0) Erythrocyte Sedimentation Rate 105 MM/HR (0-30) H Sodium Level 144 MMOL/L (136-145) Potassium Level 2.9 MMOL/L (3.5-5.1) L Chloride Level 109 MMOL/L (98-107) H Carbon Dioxide Level 30 MMOL/L (21-32) Anion Gap 5 mmol/L (5-15) Blood Urea Nitrogen 37 mg/dL (7-18) H Creatinine 0.7 MG/DL (0.55-1.30) Estimat Glomerular Filtration Rate > 60 mL/min (>60) Glucose Level 153 MG/DL (74-106) H Calcium Level 9.5 MG/DL (8.5-10.1) Phosphorus Level 3.8 MG/DL (2.5-4.9) Magnesium Level 1.7 MG/DL (1.8-2.4) L Total Bilirubin 0.2 MG/DL (0.2-1.0) Aspartate Amino Transf (AST/SGOT) 20 U/L (15-37) Alanine Aminotransferase (ALT/SGPT) 25 U/L (12-78) Alkaline Phosphatase 97 U/L (46-116) C-Reactive Protein, Quantitative 3.0 mg/dL (0.00-0.90) H Total Protein 7.1 G/DL (6.4-8.2) Albumin 2.6 G/DL (3.4-5.0) L Globulin 4.5 g/dL Albumin/Globulin Ratio 0.6 (1.0-2.7) L Vancomycin Level Trough 26.9 ug/mL (5.0-12.0) H Current Medications Medications (Trade) Dose Ordered Sig/Madisyn Route PRN Reason Start Time Stop Time Status Last Admin Dose Admin Acetaminophen (Tylenol) 650 mg Q4H PRN GT Prn Headache/Temp > 101 03/22/18 13:48 04/21/18 13:47 03/26/18 04:53 Clonidine HCl (Catapres Tab) 0.1 mg Q4H PRN GT FOR BP > 160 03/24/18 09:00 04/23/18 08:59 03/25/18 15:27 Dextrose (Dextrose 50%) 25 ml STAT PRN IV Hypoglycemia 03/15/18 17:45 04/14/18 17:44 Dextrose (Dextrose 50%) 50 ml STAT PRN IV Hypoglycemia 03/15/18 18:00 04/14/18 17:59 Heparin Sodium (Porcine) (Heparin 5000 units/ml) 5,000 units EVERY 12 HOURS SUBQ 03/15/18 21:00 04/14/18 20:59 03/24/18 10:17 Ipratropium [place] (Atrovent) 500 mcg TIDRT HHN 03/21/18 19:00 03/26/18 18:59 03/26/18 07:08 Lorazepam (Ativan) 2 mg Q6H PRN ORAL ANXIETY 03/22/18 16:45 03/29/18 16:44 03/25/18 15:27 Lorazepam (Ativan) 2 mg Q6HR GT 03/22/18 18:00 03/29/18 17:59 03/26/18 05:08 Meropenem 1 gm/ Sodium Chloride 55 ml @ 110 mls/hr Q12H IVPB 03/21/18 18:00 03/28/18 23:59 03/26/18 05:08 Ondansetron HCl (Zofran) 4 mg Q6H PRN IVP Nausea & Vomiting 03/15/18 17:45 04/14/18 17:44 Pantoprazole (Protonix) 40 mg DAILY IV 03/16/18 09:00 04/15/18 08:59 03/26/18 08:26 Polyethylene Glycol (Miralax) 17 gm DAILYPRN PRN ORAL Constipation 03/15/18 17:45 04/14/18 17:44 Temazepam (Restoril) 15 mg HSPRN PRN ORAL Insomnia 03/22/18 21:00 03/29/18 20:59 Pratik Day M.D. Mar 26, 2018 08:34
--- NOTE | 2018-03-26 11:57 | Cardiology Progress Note ---
Assessment/Plan Status: stable, progressing Assessment/Plan Assessment: (1) Acute on chronic respiratory failure (2) Right lower lobe pulmonary infiltrate (3) Sepsis (4) ALS (amyotrophic lateral sclerosis) (5) Pacemaker (6) Feeding by G-tube Plan: Continue antibiotics for PNA/UTI Possible right thoracentesis if no improvement Trach care, pulmonary toilet PPM working appropriately Echocardiogram reviewed - normal LV function Monitor renal function Minimize blood draws Gi Ppx DVT ppx Physical therapy Wound care Dispo planning Sunday Subjective Cardiovascular: Reports: no symptoms Respiratory: Reports: no symptoms Gastrointestinal/Abdominal: Reports: no symptoms Genitourinary: Reports: no symptoms Subjective No acute events, WBC normal, Creatinine coming down with hydration. She is A paced, pacemaker c/d/i. Stable on vent settlings, no distress. GT clean and feeds running. LE doppler negative for DVT. CXR with RUL consolidation and effusion Plan to transfer to SNF tomorrow Objective Last 24 Hour Vital Signs Date Time Temp Pulse Resp B/P (MAP) Pulse Ox O2 Delivery O2 Flow Rate FiO2 03/26/18 11:02 88 12 40 03/26/18 09:35 79 12 40 03/26/18 08:00 97.0 70 18 133/80 (97) 100 97.0 03/26/18 08:00 40 03/26/18 08:00 75 03/26/18 08:00 Mechanical Ventilator 03/26/18 07:18 76 12 100 Mechanical Ventilator 40 03/26/18 07:10 75 12 40 03/26/18 07:08 75 12 99 Mechanical Ventilator 40 03/26/18 05:00 84 12 40 03/26/18 04:00 40 03/26/18 04:00 Mechanical Ventilator 03/26/18 04:00 75 03/26/18 04:00 97.7 91 12 148/89 (108) 100 97.7 03/26/18 03:25 89 12 40 03/26/18 01:16 84 12 40 03/26/18 00:00 Mechanical Ventilator 03/26/18 00:00 97.9 92 12 152/92 (112) 100 97.9 03/26/18 00:00 40 03/26/18 00:00 78 03/25/18 23:00 86 12 40 03/25/18 21:12 90 12 40 8/13/18 20:00 40 03/25/18 20:00 84 03/25/18 20:00 Mechanical Ventilator 03/25/18 20:00 98.2 78 12 136/84 (101) 100 98.2 03/25/18 19:14 84 12 100 Mechanical Ventilator 40 03/25/18 19:09 95 12 40 03/25/18 19:09 95 12 100 Mechanical Ventilator 40 03/25/18 17:10 109 12 40 03/25/18 16:50 98.1 108 12 163/76 (105) 100 98.1 03/25/18 16:00 40 03/25/18 16:00 Mechanical Ventilator 03/25/18 15:27 165/92 03/25/18 15:27 98 03/25/18 15:17 120 12 40 03/25/18 14:05 154/81 (105) 03/25/18 13:12 82 12 100 Mechanical Ventilator 40 03/25/18 13:05 86 12 96 Mechanical Ventilator 40 03/25/18 13:05 88 12 40 03/25/18 12:00 40 03/25/18 12:00 Mechanical Ventilator 03/25/18 12:00 97.0 96 12 173/89 (117) 100 97.0 General Appearance: no apparent distress, alert, on vent EENT: PERRL/EOMI, normal ENT inspection Neck: non-tender, normal alignment, supple, normal inspection, no JVD Rhythm: NSR Cardiovascular: normal peripheral pulses, normal rate, regular rhythm Respiratory/Chest: chest wall non-tender, lungs clear Abdomen: normal bowel sounds, non tender Extremities: normal range of motion, non-tender 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 II-XII grossly normal, motor weakness Intake and Output 03/25/18 03/26/18 19:00 07:00 Intake Total 869 ml 779 ml Output Total 500 ml 650 ml Balance 369 ml 129 ml Free Water 250 ml IV Total 55 ml 255 ml Tube Feeding 444 ml 444 ml Other 120 ml 80 ml Output Urine Total 500 ml 650 ml # Bowel Movements 4 Laboratory Tests Test 03/25/18 16:40 White Blood Count 10.6 K/UL (4.8-10.8) Red Blood Count 3.27 M/UL (4.20-5.40) L Hemoglobin 10.3 G/DL (12.0-16.0) L Hematocrit 30.5 % (37.0-47.0) L Mean Corpuscular Volume 93 FL (80-99) Mean Corpuscular Hemoglobin 31.3 PG (27.0-31.0) H Mean Corpuscular Hemoglobin Concent 33.6 G/DL (32.0-36.0) Red Cell Distribution Width 12.2 % (11.6-14.8) Platelet Count 349 K/UL (150-450) Mean Platelet Volume 6.4 FL (6.5-10.1) L Neutrophils (%) (Auto) 74.6 % (45.0-75.0) Lymphocytes (%) (Auto) 13.8 % (20.0-45.0) L Monocytes (%) (Auto) 5.8 % (1.0-10.0) Eosinophils (%) (Auto) 4.9 % (0.0-3.0) H Basophils (%) (Auto) 1.0 % (0.0-2.0) Erythrocyte Sedimentation Rate 105 MM/HR (0-30) H Sodium Level 144 MMOL/L (136-145) Potassium Level 2.9 MMOL/L (3.5-5.1) L Chloride Level 109 MMOL/L (98-107) H Carbon Dioxide Level 30 MMOL/L (21-32) Anion Gap 5 mmol/L (5-15) Blood Urea Nitrogen 37 mg/dL (7-18) H Creatinine 0.7 MG/DL (0.55-1.30) Estimat Glomerular Filtration Rate > 60 mL/min (>60) Glucose Level 153 MG/DL (74-106) H Calcium Level 9.5 MG/DL (8.5-10.1) Phosphorus Level 3.8 MG/DL (2.5-4.9) Magnesium Level 1.7 MG/DL (1.8-2.4) L Total Bilirubin 0.2 MG/DL (0.2-1.0) Aspartate Amino Transf (AST/SGOT) 20 U/L (15-37) Alanine Aminotransferase (ALT/SGPT) 25 U/L (12-78) Alkaline Phosphatase 97 U/L (46-116) C-Reactive Protein, Quantitative 3.0 mg/dL (0.00-0.90) H Total Protein 7.1 G/DL (6.4-8.2) Albumin 2.6 G/DL (3.4-5.0) L Globulin 4.5 g/dL Albumin/Globulin Ratio 0.6 (1.0-2.7) L Vancomycin Level Trough 26.9 ug/mL (5.0-12.0) H Pratik Yan M.D. Mar 26, 2018 11:57
[2018-03-26 12:00] VITALS: BP 156/95
--- NOTE | 2018-03-26 12:29 | Nephrology Progress Note ---
Assessment/Plan Problem List: (1) ATN (acute tubular necrosis) (2) Pacemaker (3) ALS (amyotrophic lateral sclerosis) (4) Feeding by G-tube (5) Acute on chronic respiratory failure Assessment acute renal failure- likely due to toxic vanco level of 50 ! lab repear 03/25: Vanco level down- K low Anemia Other conditions - Acute on chronic respiratory failure - Right lower lobe pulmonary infiltrate - Sepsis - ALS (amyotrophic lateral sclerosis) - Pacemaker - Feeding by G-tube Plan K via GT Mag IV continue hydrate as possible ? DC PLANNING? Subjective ROS Limited/Unobtainable: No Objective Objective Last 24 Hour Vital Signs Date Time Temp Pulse Resp B/P (MAP) Pulse Ox O2 Delivery O2 Flow Rate FiO2 03/26/18 12:00 97.8 89 20 156/95 (115) 100 97.8 03/26/18 12:00 78 03/26/18 11:02 88 12 40 03/26/18 09:35 79 12 40 03/26/18 08:00 97.0 70 18 133/80 (97) 100 97.0 03/26/18 08:00 40 03/26/18 08:00 75 03/26/18 08:00 Mechanical Ventilator 03/26/18 07:18 76 12 100 Mechanical Ventilator 40 03/26/18 07:10 75 12 40 03/26/18 07:08 75 12 99 Mechanical Ventilator 40 03/26/18 05:00 84 12 40 03/26/18 04:00 40 03/26/18 04:00 Mechanical Ventilator 03/26/18 04:00 75 03/26/18 04:00 97.7 91 12 148/89 (108) 100 97.7 03/26/18 03:25 89 12 40 03/26/18 01:16 84 12 40 03/26/18 00:00 Mechanical Ventilator 03/26/18 00:00 97.9 92 12 152/92 (112) 100 97.9 03/26/18 00:00 40 03/26/18 00:00 78 03/25/18 23:00 86 12 40 03/25/18 21:12 90 12 40 03/25/18 20:00 40 03/25/18 20:00 84 03/25/18 20:00 Mechanical Ventilator 03/25/18 20:00 98.2 78 12 136/84 (101) 100 98.2 8/13/18 19:14 84 12 100 Mechanical Ventilator 40 03/25/18 19:09 95 12 40 03/25/18 19:09 95 12 100 Mechanical Ventilator 40 03/25/18 17:10 109 12 40 03/25/18 16:50 98.1 108 12 163/76 (105) 100 98.1 03/25/18 16:00 40 03/25/18 16:00 Mechanical Ventilator 03/25/18 15:27 165/92 03/25/18 15:27 98 03/25/18 15:17 120 12 40 03/25/18 14:05 154/81 (105) 03/25/18 13:12 82 12 100 Mechanical Ventilator 40 03/25/18 13:05 86 12 96 Mechanical Ventilator 40 03/25/18 13:05 88 12 40 Intake and Output 03/25/18 03/26/18 19:00 07:00 Intake Total 869 ml 779 ml Output Total 500 ml 650 ml Balance 369 ml 129 ml Free Water 250 ml IV Total 55 ml 255 ml Tube Feeding 444 ml 444 ml Other 120 ml 80 ml Output Urine Total 500 ml 650 ml # Bowel Movements 4 Laboratory Tests 03/25/18 16:40: White Blood Count 10.6, Red Blood Count 3.27L, Hemoglobin 10.3L, Hematocrit 30.5L, Mean Corpuscular Volume 93, Mean Corpuscular Hemoglobin 31.3H, Mean Corpuscular Hemoglobin Concent 33.6, Red Cell Distribution Width 12.2, Platelet Count 349, Mean Platelet Volume 6.4L, Neutrophils (%) (Auto) 74.6, Lymphocytes ( %) (Auto) 13.8L, Monocytes (%) (Auto) 5.8, Eosinophils (%) (Auto) 4.9H, Basophils (%) (Auto) 1.0, Erythrocyte Sedimentation Rate 105H, Sodium Level 144 , Potassium Level 2.9L, Chloride Level 109H, Carbon Dioxide Level 30, Anion Gap 5, Blood Urea Nitrogen 37H, Creatinine 0.7, Estimat Glomerular Filtration Rate > 60, Glucose Level 153H, Calcium Level 9.5, Phosphorus Level 3.8, Magnesium Level 1.7L, Total Bilirubin 0.2, Aspartate Amino Transf (AST/SGOT) 20, Alanine Aminotransferase (ALT/SGPT) 25, Alkaline Phosphatase 97, C-Reactive Protein, Quantitative 3.0H, Total Protein 7.1, Albumin 2.6L, Globulin 4.5, Albumin/ Globulin Ratio 0.6L, Vancomycin Level Trough 26.9H Height (Feet): 5 Height (Inches): 10.00 Weight (Pounds): 163 General Appearance: no apparent distress Objective no change Pan Covington MD Mar 26, 2018 12:29
[2018-03-26] MEDS ORDERED: MEROPENEM1 GM IV (13:38)
--- NOTE | 2018-03-26 15:14 | Pulmonolgy Critical Care Note ---
Critical Care - Asmt/Plan Problems: (1) Acute on chronic respiratory failure (2) Right lower lobe pulmonary infiltrate (3) Sepsis (4) ALS (amyotrophic lateral sclerosis) (5) Pacemaker (6) Feeding by G-tube (7) ATN (acute tubular necrosis) Respiratory: monitor respiratory rate, adjust FIO2, CXR Cardiac: continue to monitor HR/BP Renal: F/U I&O Infectious Disease: check cultures Gastrointestinal: continue feedings/current rate Endocrine: monitor blood sugar, check TSH Hematologic: monitor H/H, transfuse if hgb<8.5 Neurologic: PRN Morphine, keep patient comfortable Affect: PRN ativan Prophylaxis: Heparin Notes 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, 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 Discussed with: nurses, consultants, telephonic nurse case managerrisk compliance manager - Objective Last 24 Hour Vital Signs Date Time Temp Pulse Resp B/P (MAP) Pulse Ox O2 Delivery O2 Flow Rate FiO2 03/26/18 13:36 84 12 100 Mechanical Ventilator 40 03/26/18 13:29 92 12 40 03/26/18 13:26 92 12 99 Mechanical Ventilator 40 03/26/18 12:00 Mechanical Ventilator 03/26/18 12:00 97.8 89 20 156/95 (115) 100 97.8 03/26/18 12:00 78 03/26/18 12:00 40 03/26/18 11:02 88 12 40 03/26/18 09:35 79 12 40 03/26/18 08:00 97.0 70 18 133/80 (97) 100 97.0 03/26/18 08:00 40 03/26/18 08:00 75 03/26/18 08:00 Mechanical Ventilator 03/26/18 07:18 76 12 100 Mechanical Ventilator 40 03/26/18 07:10 75 12 40 03/26/18 07:08 75 12 99 Mechanical Ventilator 40 03/26/18 05:00 84 12 40 03/26/18 04:00 40 03/26/18 04:00 Mechanical Ventilator 03/26/18 04:00 75 03/26/18 04:00 97.7 91 12 148/89 (108) 100 97.7 03/26/18 03:25 89 12 40 03/26/18 01:16 84 12 40 03/26/18 00:00 Mechanical Ventilator 03/26/18 00:00 97.9 92 12 152/92 (112) 100 97.9 03/26/18 00:00 40 03/26/18 00:00 78 03/25/18 23:00 86 12 40 03/25/18 21:12 90 12 40 03/25/18 20:00 40 03/25/18 20:00 84 03/25/18 20:00 Mechanical Ventilator 03/25/18 20:00 98.2 78 12 136/84 (101) 100 98.2 03/25/18 19:14 84 12 100 Mechanical Ventilator 40 03/25/18 19:09 95 12 40 03/25/18 19:09 95 12 100 Mechanical Ventilator 40 03/25/18 17:10 109 12 40 03/25/18 16:50 98.1 108 12 163/76 (105) 100 98.1 03/25/18 16:00 40 03/25/18 16:00 Mechanical Ventilator 03/25/18 15:27 165/92 03/25/18 15:27 98 03/25/18 15:17 120 12 40 Status: sedated Condition: grave Neck: full ROM Lungs: chest wall tender Heart: HR/BP unstable, regular Abdomen: non-tender, active bowel sounds Extremities: no C/C/E, edema Critical Care - Subjective ROS Limited/Unobtainable: Yes Condition: critical EKG Rhythm: Sinus Rhythm FI02: 40 Vent Support Breath Rate: 12 Vent Support Mode: AC Vent Tidal Volume: 450 Sputum Amount: Small PEEP: 5.0 PIP: 24 Tube Feeding Amount: 37 I&O: Intake and Output 03/25/18 03/26/18 19:00 07:00 Intake Total 869 ml 779 ml Output Total 500 ml 650 ml Balance 369 ml 129 ml Free Water 250 ml IV Total 55 ml 255 ml Tube Feeding 444 ml 444 ml Other 120 ml 80 ml Output Urine Total 500 ml 650 ml # Bowel Movements 4 Labs: Laboratory Tests Test 03/25/18 16:40 White Blood Count 10.6 K/UL (4.8-10.8) Red Blood Count 3.27 M/UL (4.20-5.40) L Hemoglobin 10.3 G/DL (12.0-16.0) L Hematocrit 30.5 % (37.0-47.0) L Mean Corpuscular Volume 93 FL (80-99) Mean Corpuscular Hemoglobin 31.3 PG (27.0-31.0) H Mean Corpuscular Hemoglobin Concent 33.6 G/DL (32.0-36.0) Red Cell Distribution Width 12.2 % (11.6-14.8) Platelet Count 349 K/UL (150-450) Mean Platelet Volume 6.4 FL (6.5-10.1) L Neutrophils (%) (Auto) 74.6 % (45.0-75.0) Lymphocytes (%) (Auto) 13.8 % (20.0-45.0) L Monocytes (%) (Auto) 5.8 % (1.0-10.0) Eosinophils (%) (Auto) 4.9 % (0.0-3.0) H Basophils (%) (Auto) 1.0 % (0.0-2.0) Erythrocyte Sedimentation Rate 105 MM/HR (0-30) H Sodium Level 144 MMOL/L (136-145) Potassium Level 2.9 MMOL/L (3.5-5.1) L Chloride Level 109 MMOL/L (98-107) H Carbon Dioxide Level 30 MMOL/L (21-32) Anion Gap 5 mmol/L (5-15) Blood Urea Nitrogen 37 mg/dL (7-18) H Creatinine 0.7 MG/DL (0.55-1.30) Estimat Glomerular Filtration Rate > 60 mL/min (>60) Glucose Level 153 MG/DL (74-106) H Calcium Level 9.5 MG/DL (8.5-10.1) Phosphorus Level 3.8 MG/DL (2.5-4.9) Magnesium Level 1.7 MG/DL (1.8-2.4) L Total Bilirubin 0.2 MG/DL (0.2-1.0) Aspartate Amino Transf (AST/SGOT) 20 U/L (15-37) Alanine Aminotransferase (ALT/SGPT) 25 U/L (12-78) Alkaline Phosphatase 97 U/L (46-116) C-Reactive Protein, Quantitative 3.0 mg/dL (0.00-0.90) H Total Protein 7.1 G/DL (6.4-8.2) Albumin 2.6 G/DL (3.4-5.0) L Globulin 4.5 g/dL Albumin/Globulin Ratio 0.6 (1.0-2.7) L Vancomycin Level Trough 26.9 ug/mL (5.0-12.0) H Anastasiia Hines MD Mar 26, 2018 15:14
[2018-03-26 15:51] VITALS: BP 162/88
--- NOTE | 2018-03-26 15:54 | Internal Med Progress Note ---
Subjective Date of Service: Mar 26, 2018 Physician Name Solis,Shiva Attending Physician Tyrell Wilson MD Current Medications Medications (Trade) Dose Ordered Sig/Madisyn Route PRN Reason Start Time Stop Time Status Last Admin Dose Admin Acetaminophen (Tylenol) 650 mg Q4H PRN GT Prn Headache/Temp > 101 03/22/18 13:48 04/21/18 13:47 03/26/18 04:53 Clonidine HCl (Catapres Tab) 0.1 mg Q4H PRN GT FOR BP > 160 03/24/18 09:00 04/23/18 08:59 03/25/18 15:27 Dextrose (Dextrose 50%) 25 ml STAT PRN IV Hypoglycemia 03/15/18 17:45 04/14/18 17:44 Dextrose (Dextrose 50%) 50 ml STAT PRN IV Hypoglycemia 03/15/18 18:00 04/14/18 17:59 Heparin Sodium (Porcine) (Heparin 5000 units/ml) 5,000 units EVERY 12 HOURS SUBQ 03/15/18 21:00 04/14/18 20:59 03/24/18 10:17 Ipratropium [place] (Atrovent) 500 mcg TIDRT HHN 03/21/18 19:00 03/26/18 18:59 03/26/18 13:26 Lorazepam (Ativan) 2 mg Q6H PRN ORAL ANXIETY 03/22/18 16:45 03/29/18 16:44 03/25/18 15:27 Lorazepam (Ativan) 2 mg Q6HR GT 03/22/18 18:00 03/29/18 17:59 03/26/18 11:40 Meropenem 1 gm/ Sodium Chloride 55 ml @ 110 mls/hr Q12H IVPB 03/21/18 18:00 03/28/18 23:59 03/26/18 05:08 Ondansetron HCl (Zofran) 4 mg Q6H PRN IVP Nausea & Vomiting 03/15/18 17:45 04/14/18 17:44 Pantoprazole (Protonix) 40 mg DAILY IV 03/16/18 09:00 04/15/18 08:59 03/26/18 08:26 Polyethylene Glycol (Miralax) 17 gm DAILYPRN PRN ORAL Constipation 03/15/18 17:45 04/14/18 17:44 Temazepam (Restoril) 15 mg HSPRN PRN ORAL Insomnia 03/22/18 21:00 03/29/18 20:59 Allergies: Coded Allergies: MORPHINE (Verified Allergy, Unknown, 03/15/18) Uncoded Allergies: Paper tape (Allergy, Unknown, 03/17/18) Pcg provide additional information ROS Limited/Unobtainable: Yes Subjective 52 YO F with ALS admitted with pneumonia and respiratory failure. Now acute renal failure. Cover for Int Med-Dr Wilson. CHANELLE Objective Last Vital Signs Date Time Temp Pulse Resp B/P (MAP) Pulse Ox O2 Delivery O2 Flow Rate FiO2 03/26/18 13:36 84 12 100 Mechanical Ventilator 40 03/26/18 12:00 97.8 156/95 (115) 97.8 03/19/18 18:58 15.0 General Appearance: WD/WN, moderate distress EENT: PERRL/EOMI, normal ENT inspection Neck: non-tender, normal alignment, supple, normal inspection Cardiovascular: normal peripheral pulses, normal rate, regular rhythm, no gallop/murmur, no JVD Respiratory/Chest: respiratory distress, crackles/rales, rhonchi - bilaterally , expiratory wheezing, other - Mech vent Abdomen: normal bowel sounds, non tender, soft, no organomegaly, no mass Edema: trace edema Neurologic: motor weakness Laboratory Tests Test 03/25/18 16:40 White Blood Count 10.6 K/UL (4.8-10.8) Red Blood Count 3.27 M/UL (4.20-5.40) L Hemoglobin 10.3 G/DL (12.0-16.0) L Hematocrit 30.5 % (37.0-47.0) L Mean Corpuscular Volume 93 FL (80-99) Mean Corpuscular Hemoglobin 31.3 PG (27.0-31.0) H Mean Corpuscular Hemoglobin Concent 33.6 G/DL (32.0-36.0) Red Cell Distribution Width 12.2 % (11.6-14.8) Platelet Count 349 K/UL (150-450) Mean Platelet Volume 6.4 FL (6.5-10.1) L Neutrophils (%) (Auto) 74.6 % (45.0-75.0) Lymphocytes (%) (Auto) 13.8 % (20.0-45.0) L Monocytes (%) (Auto) 5.8 % (1.0-10.0) Eosinophils (%) (Auto) 4.9 % (0.0-3.0) H Basophils (%) (Auto) 1.0 % (0.0-2.0) Erythrocyte Sedimentation Rate 105 MM/HR (0-30) H Sodium Level 144 MMOL/L (136-145) Potassium Level 2.9 MMOL/L (3.5-5.1) L Chloride Level 109 MMOL/L (98-107) H Carbon Dioxide Level 30 MMOL/L (21-32) Anion Gap 5 mmol/L (5-15) Blood Urea Nitrogen 37 mg/dL (7-18) H Creatinine 0.7 MG/DL (0.55-1.30) Estimat Glomerular Filtration Rate > 60 mL/min (>60) Glucose Level 153 MG/DL (74-106) H Calcium Level 9.5 MG/DL (8.5-10.1) Phosphorus Level 3.8 MG/DL (2.5-4.9) Magnesium Level 1.7 MG/DL (1.8-2.4) L Total Bilirubin 0.2 MG/DL (0.2-1.0) Aspartate Amino Transf (AST/SGOT) 20 U/L (15-37) Alanine Aminotransferase (ALT/SGPT) 25 U/L (12-78) Alkaline Phosphatase 97 U/L (46-116) C-Reactive Protein, Quantitative 3.0 mg/dL (0.00-0.90) H Total Protein 7.1 G/DL (6.4-8.2) Albumin 2.6 G/DL (3.4-5.0) L Globulin 4.5 g/dL Albumin/Globulin Ratio 0.6 (1.0-2.7) L Vancomycin Level Trough 26.9 ug/mL (5.0-12.0) H Intake and Output 03/25/18 03/26/18 19:00 07:00 Intake Total 869 ml 779 ml Output Total 500 ml 650 ml Balance 369 ml 129 ml Free Water 250 ml IV Total 55 ml 255 ml Tube Feeding 444 ml 444 ml Other 120 ml 80 ml Output Urine Total 500 ml 650 ml # Bowel Movements 4 Assessment/Plan Problem List: (1) Dysphagia Assessment & Plan: S/P G-tube (2) Acute renal failure Assessment & Plan: Secondary to toxic vanco. See nephrology note. (3) Acute respiratory failure Assessment & Plan: Due to pneumonia. See pulmonary note. Continue mech vent (4) Right lower lobe pulmonary infiltrate Assessment & Plan: Continue meropenem per ID (5) ALS (amyotrophic lateral sclerosis) (6) Sepsis (7) Leukocytosis (8) Feeding by G-tube Status: not improved Shiva Solis MD Mar 26, 2018 15:54
[2018-03-26] MEDS ORDERED: NS 275ml ONE (16:17)
[2018-03-26] MEDS ORDERED: Sterile Water Irrig 1000ml IRRIG ONE (16:17)
--- NOTE | 2018-03-26 16:28 | General Progress Note ---
Assessment/Plan Status: stable Assessment/Plan MDD Anxiety d/o Ativan prn Ativan standing provided ro/st Subjective Date patient seen: Mar 26, 2018 Neurologic/Psychiatric: Reports: anxiety, depressed Allergies: Coded Allergies: MORPHINE (Verified Allergy, Unknown, 03/15/18) Uncoded Allergies: Paper tape (Allergy, Unknown, 03/17/18) Pcg provide additional information Objective Last 24 Hour Vital Signs Date Time Temp Pulse Resp B/P (MAP) Pulse Ox O2 Delivery O2 Flow Rate FiO2 03/26/18 16:00 40 03/26/18 16:00 Mechanical Ventilator 03/26/18 15:51 162/88 03/26/18 15:19 90 12 40 03/26/18 13:36 84 12 100 Mechanical Ventilator 40 03/26/18 13:29 92 12 40 03/26/18 13:26 92 12 99 Mechanical Ventilator 40 03/26/18 12:00 Mechanical Ventilator 03/26/18 12:00 97.8 89 20 156/95 (115) 100 97.8 03/26/18 12:00 78 03/26/18 12:00 40 03/26/18 11:02 88 12 40 03/26/18 09:35 79 12 40 03/26/18 08:00 97.0 70 18 133/80 (97) 100 97.0 03/26/18 08:00 40 03/26/18 08:00 75 03/26/18 08:00 Mechanical Ventilator 03/26/18 07:18 76 12 100 Mechanical Ventilator 40 03/26/18 07:10 75 12 40 03/26/18 07:08 75 12 99 Mechanical Ventilator 40 03/26/18 05:00 84 12 40 03/26/18 04:00 40 03/26/18 04:00 Mechanical Ventilator 03/26/18 04:00 75 03/26/18 04:00 97.7 91 12 148/89 (108) 100 97.7 03/26/18 03:25 89 12 40 03/26/18 01:16 84 12 40 03/26/18 00:00 Mechanical Ventilator 03/26/18 00:00 97.9 92 12 152/92 (112) 100 97.9 03/26/18 00:00 40 03/26/18 00:00 78 03/25/18 23:00 86 12 40 03/25/18 21:12 90 12 40 03/25/18 20:00 40 03/25/18 20:00 84 03/25/18 20:00 Mechanical Ventilator 03/25/18 20:00 98.2 78 12 136/84 (101) 100 98.2 03/25/18 19:14 84 12 100 Mechanical Ventilator 40 03/25/18 19:09 95 12 40 03/25/18 19:09 95 12 100 Mechanical Ventilator 40 03/25/18 17:10 109 12 40 03/25/18 16:50 98.1 108 12 163/76 (105) 100 98.1 Intake and Output 03/25/18 03/26/18 19:00 07:00 Intake Total 869 ml 779 ml Output Total 500 ml 650 ml Balance 369 ml 129 ml Free Water 250 ml IV Total 55 ml 255 ml Tube Feeding 444 ml 444 ml Other 120 ml 80 ml Output Urine Total 500 ml 650 ml # Bowel Movements 4 Laboratory Tests 03/25/18 16:40: White Blood Count 10.6, Red Blood Count 3.27L, Hemoglobin 10.3L, Hematocrit 30.5L, Mean Corpuscular Volume 93, Mean Corpuscular Hemoglobin 31.3H, Mean Corpuscular Hemoglobin Concent 33.6, Red Cell Distribution Width 12.2, Platelet Count 349, Mean Platelet Volume 6.4L, Neutrophils (%) (Auto) 74.6, Lymphocytes ( %) (Auto) 13.8L, Monocytes (%) (Auto) 5.8, Eosinophils (%) (Auto) 4.9H, Basophils (%) (Auto) 1.0, Erythrocyte Sedimentation Rate 105H, Sodium Level 144 , Potassium Level 2.9L, Chloride Level 109H, Carbon Dioxide Level 30, Anion Gap 5, Blood Urea Nitrogen 37H, Creatinine 0.7, Estimat Glomerular Filtration Rate > 60, Glucose Level 153H, Calcium Level 9.5, Phosphorus Level 3.8, Magnesium Level 1.7L, Total Bilirubin 0.2, Aspartate Amino Transf (AST/SGOT) 20, Alanine Aminotransferase (ALT/SGPT) 25, Alkaline Phosphatase 97, C-Reactive Protein, Quantitative 3.0H, Total Protein 7.1, Albumin 2.6L, Globulin 4.5, Albumin/ Globulin Ratio 0.6L, Vancomycin Level Trough 26.9H Height (Feet): 5 Height (Inches): 10.00 Weight (Pounds): 163 General Appearance: no apparent distress, alert Neurologic: oriented x 3, responsive, depressed affect Jazzmine Solis MD Mar 26, 2018 16:28
--- NOTE | 2018-03-27 14:35 | Discharge Summary ---
Discharge Summary Discharge Summary _ DATE OF ADMISSION: 03/15/2018 DATE OF DISCHARGE: 03/26/2018 REASON FOR ADMISSION: 52 years old female with history of ventilator dependent respiratory failure, tracheostomy status,amyotrophic lateral sclerosis, permanent pacemaker placement due to third-degree heart block and status post 2 episodes of cardiac arrest with defibrillation, was sent from the [facility] for evaluation. According to nursing staff , patient had desaturated at the facility. Pulse oximetry was intelligently dropped to 70%. Upon evaluation in emergency department vital signs revealed tachycardia, but no fever. Pulse oximetry was stable. Laboratory workup revealed leukocytosis with WBC 23.8 ,stable hemoglobin and hematocrit. ABG was stable on current settings. Urinalysis with no pyuria, few bacteria, +3 protein . BUN 28, creatinine 0.2. EKG revealed sinus tachycardia, no acute ischemic changes. Chest x-ray revealed right sided middle and lower lobe atelectasis with evidence of right lung volume loss. Patient admitted with diagnoses of sepsis, leukocytosis, probably pneumonia, possible UTI ,acute and chronic respiratory failure, possible pneumonia, pacemaker ,dysphagia, feeding by G-tube . CONSULTANTS: poultry barn manager dr. Yan ID specialist Dr. Hearn statistical typist Dr. C[place]ton psychiatrist [facility] COURSE: Patient admitted to [facility]. Ventilator support and tracheostomy care provided. Pulmonary toilet provided. Patient started on broad-spectrum antibiotics. Infectious disease specialist closely followed. Blood culture were negative. Sputum culture revealed Pseudomonas and Providencia. Urine culture initially revealed mixed gram-positive organisms, repeated urine culture revealed VRE and Megha, and again repeated urine culture revealed mixed gram-positive organisms. Per ID specialist, patient was treated for pneumonia and probable UTI. Patient was discharged on IV antibiotic to complete the course at the facility. Strict aspiration precautions were maintained. Tube feeding continued. G- tube site care provided . Patient was able to tolerate tube feeding. Lead Data Entry Operator closely followed. Echocardiogram revealed preserved ejection fraction of 55-60% and right ventricular systolic pressure of 20. No wall motion abnormality identified. DVT prophylaxis provided. Venous duplex bilateral upper and l lower extremities was negative for evidence of acute DVT. Pacemaker was functioning properly, according to poultry barn manager. Patient develop acute renal failure with BU 50 creatinine 1.6. Nephrology consult was requested. According to statistical typist , acute renal failure/acute tubular necrosis was secondary to toxic vancomycin level of 50. Vancomycin was held , and levels were closely monitored Patient was on IV hydration with close monitoring of renal parameters and electrolytes. Electrolytes were corrected as needed. Acute tubular necrosis resolved. Prior to discharge BUN 37, creatinine 0.7 GI prophylaxis provided. Supportive care provided. Bowel regimen instituted. Pain management was addressed. Psychiatrist seen and evaluated the patient , and diagnosed patient with major depressive disorder and anxiety disorder. Reality orientation and supportive therapy provided. Psychiatric medication regimen instituted. Patient stabilized, leukocytosis resolved ,afebrile, renal parameters down to normal . Patient was stable for discharge back to subacute facility FINAL DIAGNOSES: Sepsis Pneumonia Possible urinary tract infection Acute on chronic respiratory failure Acute renal failure/Acute tubular necrosis Amyotrophic lateral sclerosis Pacemaker Dysphagia, feeding by G-tube Major depressive disorder Anxiety disorder DISCHARGE MEDICATIONS: See Medication Reconciliation list. DISCHARGE INSTRUCTIONS: Patient was discharged to subacute assisted facility. Follow up with medical doctor and shank carrier at the facility. I have been assigned to dictate discharge summary for this account. I was not involved in the patient's management. Ernestine Serna NP Mar 27, 2018 14:35
== END 2018-03-26 16:18 | DRG 870 ==
LOC: EDBD 12:06 → EMR 12:50 → EDBEDREQ 13:33 → EDBEDREQSVC 13:52 → EDBEDREQ 13:52 → 2W 14:01 → EDBEDREQ 14:11
PROC: 5A1955Z Respiratory Ventilation, Greater than 96 Consecutive Hours (ICD-10-PCS; principal; 2018-03-15)
DX: A41.9 Sepsis, unspecified organism (principal); J96.21 Acute and chronic respiratory failure with hypoxia; J18.9 Pneumonia, unspecified organism; N17.0 Acute kidney failure with tubular necrosis; G12.21 Amyotrophic lateral sclerosis; Z99.11 Dependence on respirator [ventilator] status; N39.0 Urinary tract infection, site not specified; Z93.0 Tracheostomy status; Z93.1 Gastrostomy status; Z86.74 Personal history of sudden cardiac arrest; Z95.0 Presence of cardiac pacemaker; T36.8X5A Adverse effect of other systemic antibiotics, initial encounter; Y92.239 Unspecified place in hospital as the place of occurrence of the external cause; D64.9 Anemia, unspecified; R13.10 Dysphagia, unspecified; F32.9 Major depressive disorder, single episode, unspecified; F41.9 Anxiety disorder, unspecified
CPT/HCPCS: 36415; 36600; 71045; 76770; 80053; 80061; 80069; 80202; 81001; 81003; 82550; 82553; 82607; 82728; 82746; 82803; 82977; 83036; 83540; 83550; 83605; 83735; 83880; 84100; 84300; 84443; 84484; 84550; 85007; 85025; 85651; 86140; 87040; 87070; 87081; 87086; 87181; 87205; 89050; 93005; 93306; 93970; 94002; 94003; 94640; J8499